=== PATIENT | female | born 1935 | race Caucasian/White ===

== ENCOUNTER 2017-01-28 09:09 | Inpatient (IN) ==
[2017-01-28] MEDS ORDERED: Ondansetron 4 MG/2 ML VIAL IVP ONE ×2 (09:57→10:38)
[2017-01-28] MEDS ORDERED: *HR* Morphine 2 MG/ML SYRINGE IVP ONE (09:57)
[2017-01-28 09:59] LABS: Basophils % 0.4 %; Eosinophils # 0.3 K/mcL (0.0-0.6); Eosinophils % 2.8 %; Hematocrit 35.5 % (35.3-44.9); Hemoglobin 12.1 g/dL (11.5-15.4); Immature Granulocytes % 0.3 % (0-4); Lymphocytes # 1.1 K/mcL (0.6-4.6); Lymphocytes % 11.8 %; Mean Corpuscular HGB Conc 34.1 g/dL (31.6-35.5); Mean Corpuscular Hemoglobin 31.8 pg (28.0-33.3); Mean Corpuscular Volume 93.2 fL (83.0-100.0); Mean Platelet Volume 11.6 fL (9.4-12.4); Monocytes # 0.8 K/mcL (0.0-1.3); Monocytes % 8.5 %; Platelet Count 160 K/mcL (140-400); Red Blood Count 3.81 M/mcL (3.82-4.97); Red Cell Distribution Width 12.2 % (11.5-14.5); Segmented Neutrophils % 76.2 %
[2017-01-28] MEDS: 0.9 % Sodium Chloride 1,000 ML IVC SCH ×2 (09:59→19:10)
--- NOTE | 2017-01-28 10:23 | Emergency Department Note ---
Disposition Clinical Impression: Fracture of hip Qualifiers: Encounter type: initial encounter Fracture type: closed Laterality: right Qualified Code(s): S72.001A - Fracture of unspecified part of neck of right femur, initial encounter for closed fracture Disposition: Admitted As Inpatient Condition: Good Referrals: Rosemary Suarez MD [Primary Care Provider] - Forms: ED Satisfaction Letter Time of Disposition: 10:40 Lower Extremity Injury HPI - General Chief Complaint: ED Extremity Injury, Lower Stated Complaint: HIP FX Time Seen by Provider: 01/28/17 09:12 Source: patient, EMS Mode of arrival: EMS Limitations: no limitations Nursing Notes Reviewed: Yes Vital Signs Reviewed: Yes - History of Present Illness HPI Narrative: Patient presents from outside facility with what is described as a comminuted shortened right femoral neck fracture. Patient fell 3 days ago. Decided to the emergency room today because of pain. Denied any other symptoms or concerns. Only complaint on arrival his pain. Pt Subjective Complaint: hip injury Onset (ago): day(s) (3 days) Mechanism of Injury: fall Context: fall Place: home Pain Severity: moderate Pain Scale: 8 Improves with: rest Worsens with: weight bearing, movement, palpation Associated symptoms: Reports: able to partially bear weight - Related Data Home Medications Medication Instructions Recorded Confirmed Cholecalciferol (D-3) [Vitamin D] 2,000 unit PO DAILY 01/28/17 01/28/17 Imipramine HCl [Tofranil] 50 mg PO BID 01/28/17 01/28/17 Lisinopril/Hydrochlorothiazide 1 tab PO BID 01/28/17 01/28/17 [Zestoretic 20-25 mg Tablet] Metoprolol XL (24 HR) Succ [Toprol 50 mg PO DAILY 01/28/17 01/28/17 XL] Omeprazole [PriLOSEC] 20 mg PO DAILY 01/28/17 01/28/17 OxyCODONE/APAP 5/325 [Percocet 1 - 2 tab PO BID PRN 01/28/17 01/28/17 5/325 MG] Perphenazine [Trilafon] 8 mg PO HS 01/28/17 01/28/17 Phytonadione [Vitamin K] 100 mcg PO DAILY 01/28/17 01/28/17 Allergies Allergy/AdvReac Type Severity Reaction Status Date / Time aspirin AdvReac See Verified 01/28/17 09:56 Comments Penicillins AdvReac See Verified 01/28/17 09:56 Comments All systems ED: reviewed and negative except as stated. Constitutional: Denies: fever, chills Cardiovascular: Denies: chest pain, palpitations, dyspnea on exertion Respiratory: Denies: dyspnea, wheezes Gastrointestinal: Denies: abdominal pain, nausea, vomiting, diarrhea Genitourinary: Denies: dysuria, frequency Musculoskeletal: Denies: back pain, neck pain Neurological: Denies: headache Past Medical History - Past Medical History Attestation: Yes The following information was validated with the patient. Source: patient (Jon Villalta said to Kofi is a) Medical history: Reports: hypertension Psychiatric history: Reports: depression - Social History Smoking Status: Never smoker Smokeless Tobacco Status: No Alcohol use: Reports: none Drug use: Reports: none Physical Exam - General Limitations: no limitations General appearance: alert - Head Head exam: atraumatic, normocephalic, normal inspection - Eye Eye exam: Present: PERRL, EOMI - Chest Chest inspection: Present: normal inspection, symmetric chest wall rise - Respiratory Respiratory exam: Present: normal lung sounds bilaterally - Cardiovascular Cardiovascular exam: Present: regular rate, normal rhythm, normal heart sounds - Extremities Exam Extremities exam: Present: normal inspection, full ROM, tenderness (Right hip pain), normal capillary refill. Absent: calf tenderness - Back Exam Back exam: Present: normal inspection - Neurological Exam Neurological exam: Present: alert, oriented X3, CN II-XII intact - Skin Skin exam: Present: warm, dry, intact, normal color Course Course Narrative: 81-year-old female seen and examined the time of arrival by EMS. See history of present illness. Patient presented from outside facility where she was evaluated for right hip pain status post fall 3 days ago. Patient been a bleeding home with some moderate difficulty secondary to discomfort. Patient was found to have a right femoral neck fracture after the fall. Denied any other symptoms or complaints. Patient has multiple medical issues but all which appear to be in controlled this time. Based on physical exam lungs are clear heart is regular abdomen is soft there is no signs of bruising or trauma to the head pupils are equal round reactive to light. No other acute pathology. Tenderness to the right hip with no significant gross deformity. Mildly shortened and mildly rotated but no other acute pathology pulses in the DP and PT distribution are both normal bilaterally and symmetric. Patient is appropriate sensation in the distal aspect of the bilateral extremities. Patient had basic screening labs done at this time for surgical evaluation including EKG, CBC chemistry type and screen to be added. Imaging of the right hip to be completed because no dizziness at work. Pain medication fluids and nausea medication be given. Disposition will most likely be admission for definitive management. Patient was comfortable with the plan at this time - Reevaluation(s) Reevaluation #1: Imaging reviewed by myself and discussed with the on-call orthopedic physician Dr. Jaeger. Recommended CT imaging of the right hip. No other acute traumatic pathology note this time labs are stable. Token screen at this time for presurgical evaluation. EKG shows left bundle-branch block with no comparison. Patient is stable denying chest pain. No acute signs of ST segment elevation or concern for myocardial infarction. Compatible EKG from 22/02. Patient otherwise is resting comfortably in the bed. Repeat CT scan to be completed while admission and transport is completed Time: 10:39 Reevaluation #2: Patient discussed with the hospitalist Dr. mortensen. We reviewed the presentation symptoms. Happy to admit the patient for postsurgical evaluation treatment. Dr. jaeger is at the bedside and evaluated the patient was taken to surgery today after she was referred directly from the emergency room. No other recommendations intervention needed. Imaging labs and EKG reviewed with the hospitalist without any issue. Patient is stable will continue to monitor her emergency room until admission process is completed Time: 10:59 Vital Signs Temperature 98.1 F 01/28/17 09:10 Pulse Rate 81 01/28/17 09:10 Respiratory Rate 18 01/28/17 09:10 Blood Pressure 133/72 01/28/17 09:10 O2 Sat by Pulse Oximetry 95 01/28/17 09:10 Temperature 98.1 F 01/28/17 09:10 Pulse Rate 77 01/28/17 10:05 Respiratory Rate 18 01/28/17 10:05 Blood Pressure 136/68 01/28/17 10:05 O2 Sat by Pulse Oximetry 93 01/28/17 10:05 Oxygen Delivery Oxygen Delivery Room Air Extremity Injury, Lower - MDM Narrative Medical decision making narrative: Right hip fracture - Medical Records Medical records reviewed: Yes I reviewed the patient's medical records. - Lab Data Lab results reviewed: Yes I reviewed the patient's lab results. Result diagrams: 01/28/17 09:53 Lab Results 01/28/17 01/28/17 Range/Units 09:53 09:53 WBC 9.1 (4.3-11.1) K/mcL RBC 3.81 L (3.82-4.97) M/mcL Hgb 12.1 (11.5-15.4) g/dL Hct 35.5 (35.3-44.9) % MCV 93.2 (83.0-100.0) fL MCH 31.8 (28.0-33.3) pg MCHC 34.1 (31.6-35.5) g/dL RDW 12.2 (11.5-14.5) % Plt Count 160 (140-400) K/mcL MPV 11.6 (9.4-12.4) fL Immature Gran % 0.3 (0-4) % Seg Neutrophils % 76.2 % Lymphocytes % 11.8 % Monocytes % 8.5 % Eosinophils % 2.8 % Basophils % 0.4 % Neutrophils # 7.0 (1.6-8.9) K/mcL Lymphocytes # 1.1 (0.6-4.6) K/mcL Monocytes # 0.8 (0.0-1.3) K/mcL Eosinophils # 0.3 (0.0-0.6) K/mcL Basophils # 0.0 (0.0-0.2) K/mcL Specimen Rejected Hemolyzed - Radiology Data Radiology results reviewed: Yes I reviewed the patient's radiology results. X-ray shows right hip fracture - EKG Data EKG attestation: Yes I reviewed and interpreted this EKG. EKG shows normal: sinus rhythm, axis, intervals, ST-T waves Rhythm: NSR [place]/QRS: LBBB Interpretation: other (EKG is from approximately 10 years ago for comparison no acute pathology at this time)
[2017-01-28 10:28] LABS: INR 1.1; Prothrombin Time 11.9 Seconds (9.4-12.1)
[2017-01-28 10:31] LABS: Activated Partial Thrombo Time 29.2 Seconds (26.0-36.0)
[2017-01-28 10:35] LABS: BUN/Creatinine Ratio 18 (6-26); Blood Urea Nitrogen 14 mg/dL (7-20); Calcium 9.1 mg/dL (8.6-10.8); Carbon Dioxide 31 mEq/L (19-29); Chloride 94 mEq/L (98-109); Glucose 118 mg/dL (70-99); Osmolality,Calculated 276 (280-300); Potassium 3.7 mEq/L (3.5-4.5); Sodium 132 mEq/L (136-145); eGFR For African Americans > 60 (> 60); eGFR For Non-African Americans > 60 (> 60)
[2017-01-28] MEDS ORDERED: *HR* Labetalol 20 MG/4 ML SYRINGE IVP PRN (10:38)
[2017-01-28] MEDS ORDERED: *HR* HYDROmorphone (PF) 1 MG/ML SYRINGE IVP PRN (10:38)
[2017-01-28] MEDS ORDERED: *HR* Promethazine 25 MG/ML VIAL IVP PRN (10:38)
[2017-01-28] MEDS ORDERED: Albuterol 2.5 MG/3 ML NEBULIZER IH ONE (10:38)
--- NOTE | 2017-01-28 10:41 | Anesthesia Evaluation PreOp ---
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) Other Medical History: Denies Any Significant HX Anesthesia History: No Prior Anesthetic Complications : No Alcohol Use: none Drug use: none Medications and Allergies Cholecalciferol (D-3) [Vitamin D] 2,000 unit PO DAILY 01/28/17 [History] Imipramine HCl [Tofranil] 50 mg PO BID 01/28/17 [History] Lisinopril/Hydrochlorothiazide [Zestoretic 20-25 mg Tablet] 1 tab PO BID [History] Metoprolol XL (24 HR) Succ [Toprol XL] 50 mg PO DAILY 01/28/17 [History] Omeprazole [PriLOSEC] 20 mg PO DAILY 01/28/17 [History] OxyCODONE/APAP 5/325 [Percocet 5/325 MG] 1 - 2 tab PO BID PRN 01/28/17 [History] Perphenazine [Trilafon] 8 mg PO HS 01/28/17 [History] Phytonadione [Vitamin K] 100 mcg PO DAILY 01/28/17 [History] Allergies aspirin Adverse Reaction (Verified 01/28/17 09:56) See Comments unknown Penicillins Adverse Reaction (Verified 01/28/17 09:56) See Comments unknown,childhood - Meds/Allergy Pre-op Review Medications Reviewed: Yes Allergies Reviewed: Yes Beta Blockers on Current Med List: Yes If Beta Blockers taken, Date/Time (Last Dose taken): 20:00 01/27/2017 Anesthesia Results - Labs 01/28/17 09:53 01/28/17 10:16 - Imaging EKG: image reviewed (LBBB, cleared by Cardiology ( DR. Wang) - Normal EF - approx 64% on echo 01/28/2017) Anesthesia Exam O2 Sat Height 1.68 m Weight 78.925 kg O2 Sat by Pulse Oximetry 93 O2 Sat by Pulse Oximetry 95 Vital Signs Temp Pulse Resp BP Pulse Ox 98.1 F 81 18 133/72 95 01/28/17 09:10 01/28/17 09:10 01/28/17 09:10 01/28/17 09:10 01/28/17 09:10 Height: 5'6'' Weight: 174# NPO (# of Hours): > 8 hrs Pain Scale: 0 Pain Scale Used: Numeric (1 - 10) - HEENT Pupil (Motor): Pupils equal, EOMI Mallampati: II Teeth: Poor dentition Oral Opening: Greater than 3 - TRANSPORTATION PLANNING ENGINEER LOC: Oriented TRANSPORTATION PLANNING ENGINEER Motor: Normal RUE, Normal LUE, Normal RLE, Normal LLE, Normal Face TRANSPORTATION PLANNING ENGINEER Sensory: Normal: RUE, LUE, RLE, LLE, Face - Cardiac Rhythm: Regular Murmur: None JVD: No Carotid Bruit: No - Pulmonary Breath Sounds: bilateral Clear Respiratory Effort: Symmetrical Anesthesia Assess/Plan ASA Score: 2 Modified Dixie Scale for Level of Consciousness: Cooperative, oriented, and tranquil Anesthetic Plan: General Autologous Blood: Yes Monitoring Plan: Standard Monitors Recovery Plan: PACU
[2017-01-28] MEDS ORDERED: *HR* FentaNYL (PF) 100 MCG/2 ML VIAL ONE (10:51)
[2017-01-28] MEDS ORDERED: *HR* Midazolam HCl 2 MG/2 ML VIAL ONE (10:51)
[2017-01-28] MEDS ORDERED: *HR* Propofol 200 MG/20 ML VIAL IVP ONE (10:51)
[2017-01-28] MEDS ORDERED: *HR* Rocuronium Bromide 50 MG/5 ML VIAL ONE (10:53)
[2017-01-28] MEDS ORDERED: Ondansetron 4 MG/2 ML VIAL ONE (10:53)
[2017-01-28] MEDS ORDERED: *HR* Succinylcholine 200 MG/10 ML VIAL IVP ONE (10:53)
[2017-01-28] MEDS ORDERED: Dexamethasone 4 MG/ML VIAL ONE (10:53)
--- NOTE | 2017-01-28 11:14 | Orthopedic Consult Note ---
Date of Encounter: 01/28/17 Time of Encounter: 11:11 Assessment and Plan (1) Fracture of hip Current Visit: Yes Status: Acute I did discuss the diagnosis in great detail with the patient as well as her son. The patient has a valgus impacted subcapital right femoral neck fracture. Treatment options were discussed and the recommendation was for in situ percutaneous screw fixation of the right hip in order to stabilize the hip to prevent displacement as well as provide pain control and to help facilitate nursing care. The patient is aware of the risk of needing a hemiarthroplasty should there be any significant displacement seen intraoperatively. The risks discussed included but were not limited to stiffness, bleeding, infection, blood clots, damage to neurovascular structures, tendons, ligaments, and bone. Also discussed was the risk of continued symptoms and possible need for further procedures. I did discuss the anesthesia risks including stroke, heart attack, and . Additional risks include the risk of malunion, nonunion, and avascular necrosis. If she does end up requiring a hemiarthroplasty that there will be the added risk of prosthetic infection, dislocation, and the need for revision arthroplasty. I did discuss the reasonable, foreseeable postoperative course with the patient as well as her son. I anticipate the need for rehabilitation upon discharge. I explained this to the patient in simple terms and they wish to proceed and consent was obtained. Qualifiers: Encounter type: initial encounter Fracture type: closed Laterality: right Qualified Code(s): S72.001A - Fracture of unspecified part of neck of right femur, initial encounter for closed fracture History of Present Illness HPI: Ms. Garcia is a 81 year old female who is relatively healthy and is a walker- assisted community ambulator who lives independently. She did have a fall about 3 days ago while using her walker. She denies any loss of consciousness but is not entirely clear how she fell. She did not feel dizzy and thinks it was a mechanical fall. She had gone about her day but due to persistent pain which has become significant, she went to the emergency department for further evaluation at [facility]. She was transferred to our institution after the diagnosis of a subcapital impacted femoral neck fracture was made. The patient complains of isolated pain to the right groin. She denies any other pain. It is described as sharp. She denies any headaches, neck pain, chest pain, or abdominal pain. She denies bilateral upper extremity and left lower extremity pain. No numbness, tingling, or any other associate signs or symptoms. Movement of the right lower extremity does worsen the pain, and there are no other modifying factors. Past Med Surg Social Fam HX - Past Medical History Medical history: hypertension Psychiatric history: depression - Social History Smoking Status: Never smoker Smokeless Tobacco Status: No Alcohol use: none Drug use: none Medications and Allergies Cholecalciferol (D-3) [Vitamin D] 2,000 unit PO DAILY 01/28/17 [History] Imipramine HCl [Tofranil] 50 mg PO BID 01/28/17 [History] Lisinopril/Hydrochlorothiazide [Zestoretic 20-25 mg Tablet] 1 tab PO BID [History] Metoprolol XL (24 HR) Succ [Toprol XL] 50 mg PO DAILY 01/28/17 [History] Omeprazole [PriLOSEC] 20 mg PO DAILY 01/28/17 [History] OxyCODONE/APAP 5/325 [Percocet 5/325 MG] 1 - 2 tab PO BID PRN 01/28/17 [History] Perphenazine [Trilafon] 8 mg PO HS 01/28/17 [History] Phytonadione [Vitamin K] 100 mcg PO DAILY 01/28/17 [History] Allergies aspirin Adverse Reaction (Verified 01/28/17 09:56) See Comments unknown Penicillins Adverse Reaction (Verified 01/28/17 09:56) See Comments unknown,childhood All Systems Reviewed: Constitutional and musculoskeletal systems were reviewed and are negative unless otherwise stated in history of present illness. Physical Exam - Constitutional Vitals: Temp Pulse Resp BP Pulse Ox 98.1 F 77 18 136/68 93 01/28/17 09:10 01/28/17 10:05 01/28/17 10:05 01/28/17 10:05 01/28/17 10:05 Constitutional -Vitals reviewed -The patient is well developed and well nourished. -Mood is pleasant. -The patient is well groomed. Psychiatric -The patient is fully alert and oriented x 3. Respiratory: -Respiratory effort normal Abdomen: -Soft abdomen -Non tender -Non distended: Left upper extremity: -No deformities. The overlying skin is intact. No obvious signs of acute trauma. -No tenderness to palpation throughout. -No significant pain with passive motion of the shoulder, elbow, wrist, and fingers within the limits of the bed. -Able to make an "OK" sign, cross the index and long fingers, and extend the thumb. -Sensation grossly intact to light touch throughout the median, radial, and ulnar distributions. -Radial pulse is present; Fingers have good capillary refill. Right upper extremity: -No deformities. The overlying skin is intact. No obvious signs of acute trauma. -No tenderness to palpation throughout. -No significant pain with passive motion of the shoulder, elbow, wrist, and fingers within the limits of the bed. -Able to make an "OK" sign, cross the index and long fingers, and extend the thumb. -Sensation grossly intact to light touch throughout the median, radial, and ulnar distributions. -Radial pulse is present; Fingers have good capillary refill. Left lower extremity: -No deformities. The overlying skin is intact. No obvious signs of acute trauma. -No tenderness to palpation throughout. -No pain with passive motion of the hip, knee, ankle, and toes within the limits of the bed. -No pain with axial loading of the thigh. -Able to dorsiflex and plantarflex the ankle and toes. -Sensation is grossly intact to light touch throughout the sural, saphenous, superficial peroneal, and deep peroneal distributions. -Toes have good capillary refill. Right lower extremity: -No deformities. The overlying skin is intact. No obvious signs of acute trauma. -Mild tenderness to palpation in the right groin. No other tenderness noted. -Mild pain with logroll of the right hip. -Moderate pain with axial loading of the right groin. -Able to dorsiflex and plantarflex the ankle and toes. -Sensation is grossly intact to light touch throughout the sural, saphenous, superficial peroneal, and deep peroneal distributions. -Toes have good capillary refill. Diagnostic Imaging: I did personally review and interpret x-rays and CT scan of the right hip which demonstrate a subcapital valgus impacted femoral neck fracture. Results - Labs Result Diagrams: 01/28/17 09:53 01/28/17 10:16 Labs: Abnormal lab results RBC 3.81 M/mcL (3.82-4.97) L 01/28/17 09:53 Sodium 132 mEq/L (136-145) L 01/28/17 10:16 Chloride 94 mEq/L (98-109) L 01/28/17 10:16 Carbon Dioxide 31 mEq/L (19-29) H 01/28/17 10:16 Glucose 118 mg/dL (70-99) H 01/28/17 10:16 Calculated Osmolality 276 (280-300) L 01/28/17 10:16 All other labs normal. Consult Discharge Plan - Plan Referrals: Rosemary Suarez MD [Primary Care Provider] -
--- NOTE | 2017-01-28 12:11 | Cardiology Consult Note ---
Date of Encounter: 01/28/17 Time of Encounter: 12:08 Assessment and Plan (1) Preop cardiovascular exam Current Visit: Yes Status: Acute 81 year old with hip fracture scheduled for percutaneous pinning. LBBB noted on preoperative ECG. Prior to fall able to perform ADLs/> 4 METs without chest pain. LVEF normal (TTE reviewed at patient's bedside). Although LBBB can be associated with CAD, no high risk features are noted at this time - denies chest pain, dyspnea, etc. She appears to be an acceptable candidate for this orthopedic procedure. I would recommend aspirin 81 mg daily. Consider outaptient cardiology followup for a possible ischemic evaluation, if she wishes to do that. Thanks, Bishnu Pan DO, FACC (2) Left bundle branch block (LBBB) Current Visit: Yes Status: Acute Discussion w patient/family: The assessment and plan as outlined above was discussed with the patient and/or family members who expressed understanding and agreement. All questions were answered. Thank you for involving us in the care of your patient. Please call with any questions. History of Present Illness Consult date: 01/28/17 Requesting physician: Vasquez Jaeger Consult reason: Preop Chief complaint: Hip fracture History of present illness: Ms. Garcia is a 81 year old female here for fall, hip fracture. Preoperative ECG demonstrated LBBB. Consultation requested. She lives alone at home. Able to perform ADLs without chest pain or discomfort. No unusual dyspnea, orthopnea, or PND reported. No prior history of heart disease. Never required a stress test or LHC. PMH - HTN. Past Med Surg Social Fam HX - Past Medical History Medical history: hypertension Psychiatric history: depression - Social History Smoking Status: Never smoker Smokeless Tobacco Status: No Alcohol use: none Drug use: none Medications and Allergies Cholecalciferol (D-3) [Vitamin D] 2,000 unit PO DAILY 01/28/17 [History] Imipramine HCl [Tofranil] 50 mg PO BID 01/28/17 [History] Lisinopril/Hydrochlorothiazide [Zestoretic 20-25 mg Tablet] 1 tab PO BID [History] Metoprolol XL (24 HR) Succ [Toprol XL] 50 mg PO DAILY 01/28/17 [History] Omeprazole [PriLOSEC] 20 mg PO DAILY 01/28/17 [History] OxyCODONE/APAP 5/325 [Percocet 5/325 MG] 1 - 2 tab PO BID PRN 01/28/17 [History] Perphenazine [Trilafon] 8 mg PO HS 01/28/17 [History] Phytonadione [Vitamin K] 100 mcg PO DAILY 01/28/17 [History] Allergies aspirin Adverse Reaction (Verified 01/28/17 09:56) See Comments unknown Penicillins Adverse Reaction (Verified 01/28/17 09:56) See Comments unknown,childhood All Systems Review: A 10-system review of systems was performed and is negative for pertinent findings except as documented above in the HPI. - Cardiovascular Cardiovascular: as per HPI Physical Examination Vital Signs, Last 4 Hours Resp BP 01/28/17 11:15 18 136/71 General: Conversant, No Apparent Distress HEENT: Atraumatic, Normocephaly, Mucus Membranes Moist Neck: No JVD, Normal carotid pulses Cardiac: Reg Rate and Rhythm, Normal S1 and S2, No Murmur Lungs: Normal Breath Sounds, No Wheeze, Rales, Rhonchi Neuro: Alert and responsive, No focal deficits noted Abdomen: Soft, Non-Tender Skin: No rashes noted on visualized skin Musculoskeletal: No Chest Wall Tenderness Extremities: No Clubbing, No Cyanosis, No Edema Results 01/28/17 09:53 01/28/17 10:16 - Imaging and Cardiology Echo: image reviewed - EKG Interpretation EKG results cardiology: personally reviewed Consult Discharge Plan - Plan Referrals: Rosemary Suarez MD [Primary Care Provider] -
[2017-01-28] MEDS ORDERED: Clindamycin 900 MG/50 ML 900 MG/50 ML IV.SOLN IVPB ONE ×2 (12:12→12:55)
--- NOTE | 2017-01-28 13:54 | Orthopedic Operative Note ---
Date of procedure: 01/28/17 Procedure: OPERATIVE REPORT DATE OF PROCEDURE: 01/28/2017 SURGEON: Vasquez Jaeger MD LANGUAGE ASSISTANT(S): There were no assistants PREOPERATIVE DIAGNOSIS: Right subcapital valgus impacted femoral neck fracture POSTOPERATIVE DIAGNOSIS: Right subcapital valgus impacted femoral neck fracture PROCEDURE: In situ percutaneous screw fixation of the right subcapital valgus impacted femoral neck fracture ANESTHESIA: General anesthesia PREOPERATIVE ANTIBIOTICS: 900 mg of clindamycin ESTIMATED BLOOD LOSS: 50 milliliters URINE OUTPUT: 50 mL FLUID GIVEN: 600 mL IMPLANTS: Synthes 7.3 mm partially threaded cancellus screws: 90 mm, 85 mm, 80 mm PREOPERATIVE NOTE AND INDICATIONS: Palmira is an 81-year-old female with a right subcapital valgus impacted femoral neck fracture. Treatment options were discussed and the recommendation was for the above procedure in order to stabilize the hip to reduce the risk of displacement, improved pain, and help facilitate nursing care. The surgical plan was discussed with the patient. The risks, benefits, alternatives, and potential complications of this procedure were discussed with the patient including injury to veins, arteries, nerves, tendons, ligaments, and bone. Also discussed were the risks of infection, bleeding, pain, blood clots, the possible need for a blood transfusion, the possible need for further procedures, heart attack, stroke, and . Additional risks include the risk of malunion, nonunion, avascular necrosis, and displacement of the fracture. All of this was explained in simple terms, and the patient verbalized understanding and wished to proceed. Consent was given to proceed with surgery. PROCEDURE: The patient was seen in the preoperative holding area where the identify and the consent were confirmed. The right thigh was marked. Final questions were answered. The patient was brought back to the operating room and placed supine on the operating room table. A huddle was performed with the patient and all vital surgical team members confirming patient identity, the correct procedure, and the correct operative site. General anesthesia was administered. The patient was placed on the fracture table and the right foot placed in the foot bhandari without traction. The leg was internally rotated about 45 degrees. The left lower extremity is flexed and abducted out of the way. X-rays confirmed no displacement of the fracture. The right lower extremity was prepped and draped in the usual sterile fashion. A surgical time out was performed immediately preceding the incision with all personnel in the operating room to confirm patient identity, the correct operative site and extremity, correct radiographic studies, availability of appropriate surgical equipment, and agreement on the planned procedure. A 3 cm incision was made through the skin, subcutaneous tissue, and the fascia. The first guidewire was placed in the inferior position and drilled into the femoral head. X-rays confirmed good position. The lateral cortex was drilled after measuring and the definitive screw placed with a moderate amount of purchase. A similar technique was used to place an anterior superior and posterior superior screw. Washers were used for the inferior and anterior superior screws. Due to's space constraints, a third washer was not used. X- rays confirmed good position on live fluoroscopy from AP to lateral. The wound was copiously irrigated and the deep layer closed with 0 Vicryl stitches. The skin was closed with interrupted 3-0 Vicryl stitches and hattie. The patient was taken down off the traction table and placed onto her bed in good condition. The instrument, sponge, and needle counts were correct after wound closure. POST OPERATIVE PLAN: Weight Bearing: Weightbearing as tolerated DVT Prophylaxis: Lovenox 40 mg subcutaneous daily for 4 weeks Activity: Activity as tolerated Wound Care: Daily dressing changes on postoperative day 2. Perioperative antibiotic prophylaxis: 2 doses of clindamycin Social work for discharge planning Follow Up: 2 weeks
--- NOTE | 2017-01-28 14:18 | Anesthesia Evaluation Post Op ---
Date of Encounter: 01/28/17 Time of Encounter: 14:17 - Vital Signs Vital Signs: Vital Signs/O2 Sat, Most Current Temp Pulse Resp BP Pulse Ox 97.9 F 69 20 177/81 97 01/28/17 14:01/28/17 14:01/28/17 14:01/28/17 14:01/28/17 14:07 - Lungs Lungs: Clear Ascult./Percussion - Airway Airway: Non-obstructed - Cardiovascular Regular Rate - Mental Status Mental Status: Alert & Oriented, Answers Appropriately - Pain Pain Scale: 0 Pain Scale used: Numeric (1 - 10) - Nausea Vomiting Nausea Vomiting: Not Present - Hydration Hydration: NPO, Dai catheter - Discharge PostOp Status: Transfer Patient to floor
[2017-01-28] MEDS ORDERED: *HR* Morphine 2 MG/ML SYRINGE IVP PRN (14:49)
--- NOTE | 2017-01-28 14:58 | Internal Med History&Physical ---
<Lena Park - Last Filed: 01/28/17 14:54> Date of Encounter: 01/28/17 Time of Encounter: 14:54 Assessment and Plan (1) Fracture of hip Current visit: Yes Status: Acute With fall 3 days prior to admission, right hip x-ray with acute right femoral neck fracture. S/p internal fixation on 01/28/2017. Details of all unclear, patient denies lightheadedness, dizziness, no loss of consciousness (appears mechanical). Continue IV when necessary morphine for pain management, will likely need SNF placement. Postoperative management including anticoagulation and mobility status per Ortho. PT/OT consulted Qualifiers: Encounter type: initial encounter Fracture type: closed Laterality: right Qualified Code(s): S72.001A - Fracture of unspecified part of neck of right femur, initial encounter for closed fracture (2) Left bundle branch block (LBBB) Current visit: Yes Status: Acute Noted on preop EKG. Evaluated by cardiology prior to surgery. No inpatient workup needed, can follow up with cardiology for ischemic eval at discharge. Cardiology does recommend ASA 81 mg daily, start when okay per Ortho (3) Hypertension Current visit: Yes Status: Acute Per history. BP elevated, likely due to acute pain. Resume home BP medications. Monitor BP and titrate when necessary Qualifiers: Hypertension type: essential hypertension Qualified Code(s): I10 - Essential (primary) hypertension (4) Depression Current visit: Yes Status: Acute Per history. Withdrawn and with flat affect on exam. Continue home medication regimen. Qualifiers: Depression Type: major depressive disorder Qualified Code(s): F32.9 - Major depressive disorder, single episode, unspecified (5) DVT prophylaxis Current visit: Yes Status: Acute Lovenox per Ortho Internal Medicine - H&P: HPI Chief complaint: right hip pain Admitted From: Home History of present illness: Ms. Garcia is a 81 year old female with PMH HTN and depression who presented to [facility] 01/28/2017 with complaints of right hip pain. She was found to have right femoral neck fracture. She was taken to the OR from ED for surgical intervention. Information obtained from chart review and patient report. Patient is drowsy and somewhat withdrawn does not provide many details at all. Per chart review patient fell 3 days ago high her to admission, now with persistent right hip pain. On my exam she says her legs just gave out on her she denies lightheadedness dizziness she is not exactly sure how or why she fell. Denies loss of consciousness. She complains of right hip pain, but she does not rate her get pain characteristics to says it hurts. Denies numbness or tingling to right leg no loss of bowel or bladder incontinence. No chest pain no shortness of breath Past Med Surg Social Fam HX - Past Medical History Medical history: hypertension Psychiatric history: depression - Past Surgical History Surgical History: non-contributory - Social History Smoking Status: Never smoker Smokeless Tobacco Status: No Alcohol use: none Drug use: none - Additional Family History Additional family history: Reviewed and noncontributory Internal Medicine - H&P: Meds Cholecalciferol (D-3) [Vitamin D] 2,000 unit PO DAILY 01/28/17 [History] Imipramine HCl [Tofranil] 50 mg PO BID 01/28/17 [History] Lisinopril/Hydrochlorothiazide [Zestoretic 20-25 mg Tablet] 1 tab PO BID [History] Metoprolol XL (24 HR) Succ [Toprol XL] 50 mg PO DAILY 01/28/17 [History] Omeprazole [PriLOSEC] 20 mg PO DAILY 01/28/17 [History] OxyCODONE/APAP 5/325 [Percocet 5/325 MG] 1 - 2 tab PO BID PRN 01/28/17 [History] Perphenazine [Trilafon] 8 mg PO HS 01/28/17 [History] Phytonadione [Vitamin K] 100 mcg PO DAILY 01/28/17 [History] Allergies aspirin Adverse Reaction (Verified 01/28/17 09:56) See Comments unknown Penicillins Adverse Reaction (Verified 01/28/17 09:56) See Comments unknown,childhood All Systems PM: A 10-system review of systems was performed and is negative for pertinent findings except as documented above in the HPI. - Constitutional Constitutional: no chills, no fever(s), no night sweats - EENT Eyes: no change in vision, no discharge, no pain, no photophobia Ears: no ear discharge, no ear pain, no tinnitus Nose, mouth and throat: no dysphagia, no nasal discharge, no neck pain, no sore throat - Cardiovascular Cardiovascular ROS IM: no chest pain, no diaphoresis, no dyspnea, no lightheadedness, no palpitations, no syncope - Respiratory Respiratory: no cough, no dyspnea, no wheezing, no excessive phlegm production - Gastrointestinal Gastrointestinal: no abdominal pain, no diarrhea, no hematemesis, no hematochezia, no melena, no nausea, no vomiting - Genitourinary Genitourinary: no change in urinary stream, no dysuria, no flank pain, no hematuria - Musculoskeletal Musculoskeletal ROS IM: limited range of motion (Right hip pain), no numbness, no tingling - Integumentary Integumentary IM: no rash, no unusual bruising - Neurological Neurological ROS: no confusion, no convulsions, no focal weakness, no numbness, no tingling, no tremor(s) - Hematologic/Lymphatic Hematologic/Lymphatic: no easy bruising - Constitutional Vitals: Temp Pulse Resp BP Pulse Ox 97.7 F 72 18 152/83 96 01/28/17 14:25 01/28/17 14:25 01/28/17 14:25 01/28/17 14:25 01/28/17 14:25 General appearance: Present: A&O X 3, no acute distress - Head Head exam: Present: atraumatic, normocephalic - Eye Eye exam: Present: PERRL, conjuntiva pink, sclera anicteric Pupils: Present: PERRL - Neck Neck exam general surgery: Present: supple, trachea midline. Absent: lymphadenopathy - Respiratory Respiratory exam: Present: CTAB. Absent: accessory muscle use, rales, rhonchi, wheezes - Cardiovascular Cardiovascular exam: Present: RRR, +S1, +S2. Absent: diastolic murmur, gallop, rubs, systolic murmur - GI/Abdominal GI/Abdominal exam: Present: normal bowel sounds, soft, no peritoneal signs. Absent: distended, tenderness - Extremities Exam Extremities exam: Present: joint swelling, pedal edema (Right hip edema), warm, radial pulses palpable and symetrical. Absent: calf tenderness, cyanotic - Neurological Exam Neurological exam: Present: CN II-XII intact, oriented X3, no focal deficits. Absent: pronater drift, facial droop, speech deficit - Psychiatric Psychiatric exam: Present: flat affect - Skin Skin exam: Present: dry, intact Internal Med - H&P Results - Labs CBC & Chem 7: 01/28/17 09:53 01/28/17 10:16 - Impressions ITS Impressions Fluoroscopy 01/28/17 12:30 IMPRESSION: Intraprocedural fluoroscopic spot images as above. See separate procedure report for more information. D/ / Bishnu Reed MD / Bishnu Reed MD Interpreting Provider: Bishnu Reed MD <Jerry Griggs - Last Filed: 01/28/17 15:25> Date of Encounter: 01/28/17 Internal Medicine - H&P: HPI History of present illness: Ms. Garcia is a 81 year old female Past Med Surg Social Fam HX - Family History Brother Adopted: No Living Status: Father Living Status: Hx Family Cardiac Disorders: Yes Mother Hx Family Endocrine Disorder: Yes (Diabetes) All Systems PM: A 10-system review of systems was performed and is negative for pertinent findings except as documented above in the HPI. - Constitutional Vitals: Temp Pulse Resp BP Pulse Ox 98.0 F 76 16 160/72 97 01/28/17 14:50 01/28/17 14:50 01/28/17 14:50 01/28/17 14:50 01/28/17 14:50 Internal Med - H&P Results - Labs CBC & Chem 7: 01/28/17 09:53 01/28/17 10:16 - Impressions ITS Impressions Fluoroscopy 01/28/17 12:30 IMPRESSION: Intraprocedural fluoroscopic spot images as above. See separate procedure report for more information. D/ / Bishnu Reed MD / Bishnu Reed MD Interpreting Provider: Bishnu Reed MD - Attending Attestation I have seen and examined the patient at around 15:10. I have discussed about the patient with Lena Park NP. I have reviewed the orders and the note. The patient is a 81-year-old female with past history of hypertension, depression and probable schizophrenia. She presented to the ED with right hip pain. Patient states she had a fall about 3 days ago, and has had right hip pain ever since then. Initial evaluation in the ED revealed right femoral neck fracture. Patient was taken to the OR from the ED and had percutaneous screw fixation of the fracture. Patient has tolerated the procedure well. She was examined after the procedure. Cardiology has evaluated the patient prior to surgery in view of LBBB. Cardiac clearance given. We will continue aspirin 81 mg. On examination, patient is drowsy but easily arousable. Not in any distress. Able to verbalize and able to answer questions. She complains of pain at the postop site. Moderate pain. No other complaints. Patient will be on IV morphine for pain control, IV fluids and will be on DVT prophylaxis. We will continue home medications. Patient has been explained about her condition and plan of care. Understood and agreed. No unanswered questions. Will discuss with son. CODE STATUS full code.
[2017-01-28] MEDS: Clindamycin 900 MG/50 ML 900 MG/50 ML IV.SOLN IVPB SCH ×2 (15:24→23:24)
[2017-01-29 07:03] LABS: Hematocrit 29.6 % (35.3-44.9)
[2017-01-29 07:05] LABS: Hemoglobin 9.7 g/dL (11.5-15.4)
[2017-01-29 07:07] LABS: BUN/Creatinine Ratio 21 (6-26); Blood Urea Nitrogen 15 mg/dL (7-20); Calcium 8.3 mg/dL (8.6-10.8); Carbon Dioxide 29 mEq/L (19-29); Chloride 100 mEq/L (98-109); Glucose 121 mg/dL (70-99); Osmolality,Calculated 282 (280-300); Potassium 3.7 mEq/L (3.5-4.5); Sodium 135 mEq/L (136-145); eGFR For African Americans > 60 (> 60); eGFR For Non-African Americans > 60 (> 60)
--- NOTE | 2017-01-29 07:55 | Internal Med Progress Note ---
Date of Encounter: 01/29/17 Time of Encounter: 07:53 - Assessment and plan (1) Fracture of hip Current Visit: Yes Status: Acute Assessment and plan: right hip x-ray with acute right femoral neck fracture. S/p internal fixation on 01/28/2017. Followed by orthopedic surgery Qualifiers: Encounter type: initial encounter Fracture type: closed Laterality: right Qualified Code(s): S72.001A - Fracture of unspecified part of neck of right femur, initial encounter for closed fracture (2) Acute blood loss as cause of postoperative anemia Current Visit: Yes Status: Acute Assessment and plan: Hemoglobin dropped from 12.1 down to 9.7 Vital signs are stable, monitor CBC, may order Hemoccult The patient is on omeprazole Consider transfusion if needed Consider holding Lovenox (3) Left bundle branch block (LBBB) Current Visit: Yes Status: Acute Assessment and plan: Stable, no intervention Was evaluated by cardiology (4) Hypertension Current Visit: Yes Status: Acute Assessment and plan: Stable Continue lisinopril and hydrochlorothiazide Qualifiers: Hypertension type: essential hypertension Qualified Code(s): I10 - Essential (primary) hypertension (5) Depression Current Visit: Yes Status: Acute Assessment and plan: Stable Qualifiers: Depression Type: major depressive disorder Qualified Code(s): F32.9 - Major depressive disorder, single episode, unspecified - Subjective Interval history: Complains of mild pain on the right hip from the surgery. Denies any chest pain , shortness of breath, no fevers or chills, no abdominal pain, no dysuria - Constitutional Vitals: Temp Pulse Resp BP Pulse Ox 98.4 F 79 16 138/67 95 01/29/17 06:34 01/29/17 06:34 01/29/17 06:34 01/29/17 06:34 01/29/17 06:34 General appearance: Present: A&O X 3, no acute distress - Head Head exam: Present: atraumatic, normocephalic - Eye Eye exam: Present: PERRL, conjuntiva pink, sclera anicteric Pupils: Present: PERRL - Neck Neck exam general surgery: Present: supple, trachea midline. Absent: lymphadenopathy - Respiratory Respiratory exam: Present: CTAB. Absent: accessory muscle use, rales, rhonchi, wheezes - Cardiovascular Cardiovascular exam: Present: RRR, +S1, +S2. Absent: diastolic murmur, gallop, rubs, systolic murmur - GI/Abdominal GI/Abdominal exam: Present: normal bowel sounds, soft, no peritoneal signs. Absent: distended, tenderness - Extremities Exam Extremities exam: Present: warm, radial pulses palpable and symetrical. Absent : calf tenderness, cyanotic, pedal edema - Neurological Exam Neurological exam: Present: CN II-XII intact, oriented X3, no focal deficits. Absent: pronater drift, facial droop, speech deficit - Skin Skin exam: Present: dry. Absent: intact (Right hip surgical wound covered by dressing, no signs of infection or hematoma) Internal Medicine: Result - Labs CBC & Chem 7: 01/29/17 05:31 01/29/17 05:31 Labs: Short CBC 01/29/17 Range/Units 05:31 Hgb 9.7 L D (11.5-15.4) g/dL Hct 29.6 L (35.3-44.9) % BMP 01/29/17 05:31 Sodium 135 L Potassium 3.7 Chloride 100 Carbon Dioxide 29 BUN 15 Creatinine 0.72 Glucose 121 H Calcium 8.3 L - ABG Interpretation ABG results: PT/INR, D-dimer PT 11.9 Seconds (9.4-12.1) 01/28/17 10:16 - Impressions Impressions Fluoroscopy 01/28/17 12:30 IMPRESSION: Intraprocedural fluoroscopic spot images as above. See separate procedure report for more information. D/ / Bishnu Reed MD / Bishnu Reed MD Interpreting Provider: Bishnu Reed MD - VTE Documentation of Mechanical Device: Intermittent pneumatic compression device Consult Discharge Plan - Plan Referrals: Rosemary Suarez MD [Primary Care Provider] -
[2017-01-29] MEDS: Metoprolol XL (24 HR) Succ 50 MG TAB.ER.24H PO SCH (09:44)
[2017-01-29] MEDS: *HR* Enoxaparin 40 MG/0.4 ML SYRINGE SQ SCH (09:45)
--- NOTE | 2017-01-29 13:30 | Electrocardiograph Report ---
[place] [id number] Test Date: 2017-01-28 Pat Name: Palmira Garcia Department: 105 Room: [facility] Gender: F [employer] Worker: : 1935 Requested By: Ishan Cooley Order Number: [id number] Reading MD: Artie Lozano MD Measurements Intervals Anna Rate: 77 P: 83 TN: 161 QRS: -29 QRSD: 176 T: 90 QT: 445 QTc: 477 Interpretive Statements SINUS RHYTHM LEFT BUNDLE BRANCH BLOCK Electronically Signed On 01-29-2017 13:28:39 EDT by Artie Lozano MD
[2017-01-29 14:22] LABS: Hematocrit 32.1 % (35.3-44.9); Hemoglobin 10.9 g/dL (11.5-15.4)
[2017-01-29] MEDS: *HR* OxyCODONE/APAP 5/325 TABLET PO PRN ×2 (16:21→22:48)
--- NOTE | 2017-01-29 17:10 | Orthopedics Progress Note ---
Date of Encounter: 01/29/17 Time of Encounter: 17:07 - Assessment and Plan (1) Fracture of hip Current Visit: Yes Status: Acute Qualifiers: Encounter type: initial encounter Fracture type: closed Laterality: right Qualified Code(s): S72.001A - Fracture of unspecified part of neck of right femur, initial encounter for closed fracture Subjective Interval history: S: Sitting up in the chair. Minimal pain to the right groin. No new complaints. Has been able to put weight down on the right lower extremity without significant pain. O: Afebrile, vitals stable. Right thigh dressing is clean, dry, intact. No significant pain with logroll or axial loading of the right thigh. She is able to dorsiflex and plantarflex the right ankle and toes. A: Post internal fixation of the right subcapital femoral neck fracture P: -Dai out today -2 doses of postoperative antibiotics complete -Physical therapy, weightbearing as tolerated on the bilateral lower extremities -Lovenox 40 mg subcutaneous daily for 4 weeks total -Knee-high ALEXIA hose -Vitamin D levels within normal limits -Dressing change tomorrow Objective Vital signs: Vital Signs Temp Pulse Resp BP Pulse Ox 01/29/17 16:19 98.4 F 87 16 151/65 96 01/29/17 10:03 98.7 F 81 16 134/68 94 01/29/17 09:58 92 01/29/17 06:34 98.4 F 79 16 138/67 95 01/29/17 03:59 98.6 F 84 17 135/70 98 01/28/17 23:00 98.6 F 81 15 135/64 97 01/28/17 17:20 97.8 F 83 18 124/62 100 Intake and Output 01/29/17 01/29/17 01/29/17 07:59 15:59 23:59 Output Total 525 / 525 Balance -525 / -525 Output: Catheter 525 / 525 - Labs CBC & BMP: 01/29/17 13:42 01/29/17 05:31 Labs: Abnormal lab results RBC 3.81 M/mcL (3.82-4.97) L 01/28/17 09:53 Hgb 10.9 g/dL (11.5-15.4) L 01/29/17 13:42 Hct 32.1 % (35.3-44.9) L 01/29/17 13:42 Sodium 135 mEq/L (136-145) L 01/29/17 05:31 Glucose 121 mg/dL (70-99) H 01/29/17 05:31 Calcium 8.3 mg/dL (8.6-10.8) L 01/29/17 05:31 - VTE Documentation of Mechanical Device: Intermittent pneumatic compression device Consult Discharge Plan - Plan Referrals: Rosemary Suarez MD [Primary Care Provider] -
[2017-01-30 06:38] LABS: Hematocrit 31.7 % (35.3-44.9); Mean Corpuscular HGB Conc 34.7 g/dL (31.6-35.5); Mean Corpuscular Hemoglobin 32.4 pg (28.0-33.3); Mean Corpuscular Volume 93.2 fL (83.0-100.0); Platelet Count 190 K/mcL (140-400); Red Cell Distribution Width 12.5 % (11.5-14.5)
[2017-01-30 06:52] LABS: BUN/Creatinine Ratio 24 (6-26); Blood Urea Nitrogen 17 mg/dL (7-20); Carbon Dioxide 27 mEq/L (19-29); Chloride 98 mEq/L (98-109); Glucose 95 mg/dL (70-99); Osmolality,Calculated 279 (280-300); Potassium 4.1 mEq/L (3.5-4.5); Sodium 134 mEq/L (136-145); eGFR For African Americans > 60 (> 60); eGFR For Non-African Americans > 60 (> 60)
--- NOTE | 2017-01-30 07:15 | Orthopedics Progress Note ---
Date of Encounter: 01/30/17 Time of Encounter: 07:13 - Assessment and Plan (1) Fracture of hip Current Visit: Yes Status: Acute Qualifiers: Encounter type: initial encounter Fracture type: closed Laterality: right Qualified Code(s): S72.001A - Fracture of unspecified part of neck of right femur, initial encounter for closed fracture Subjective Interval history: S: Pain well controlled. Ambulated with therapy. Minimal right groin pain with weightbearing. O: Afebrile, vitals stable. Right thigh incision is clean, dry, intact. No significant pain with logroll or axial loading of the right thigh. She is able to dorsiflex and plantarflex the right ankle and toes. A: Post internal fixation of the right subcapital femoral neck fracture P: -Physical therapy, weightbearing as tolerated on the bilateral lower extremities -Lovenox 40 mg subcutaneous daily for 4 weeks total -Knee-high ALEXIA hose -Orthopedically stable for discharge to SNF -Follow up with me in the office in 2 weeks from surgery date. Objective Vital signs: Vital Signs Temp Pulse Resp BP Pulse Ox 01/30/17 06:50 98.0 F 83 16 158/82 94 01/30/17 03:48 98.3 F 83 18 156/78 01/30/17 00:09 99.1 F 82 147/78 93 01/29/17 19:59 98.3 F 81 144/70 97 01/29/17 19:40 98.3 F 81 144/70 97 01/29/17 16:19 98.4 F 87 16 151/65 96 01/29/17 10:03 98.7 F 81 16 134/68 94 01/29/17 09:58 92 Intake and Output 01/29/17 01/29/17 01/30/17 15:59 23:59 07:59 Intake Total 350 / 350 Output Total 400 / 400 Balance -50 / -50 Intake: Oral 350 / 350 Output: Urine 400 / 400 Other: Stool Size Small Stool Consistency formed Stool Color Brown # Voids 1 Weight 84.7 kg - Labs CBC & BMP: 01/30/17 05:34 01/30/17 05:34 Labs: Abnormal lab results WBC 11.4 K/mcL (4.3-11.1) H 01/30/17 05:34 RBC 3.40 M/mcL (3.82-4.97) L 01/30/17 05:34 Hgb 11.0 g/dL (11.5-15.4) L 01/30/17 05:34 Hct 31.7 % (35.3-44.9) L 01/30/17 05:34 Sodium 134 mEq/L (136-145) L 01/30/17 05:34 Calculated Osmolality 279 (280-300) L 01/30/17 05:34 - VTE Documentation of Mechanical Device: Intermittent pneumatic compression device Consult Discharge Plan - Plan Additional Instructions: SENIOR CARE DISCHARGE INSTRUCTIONS Dr. Jaeegr PROCEDURE PERFORMED Fixation of the right hip. Incision care -Daily dressing changes to the right hip with dry gauze and either paper tape or medipore tape. -Avoid soaking wound in water (no hot tubs, bathtubs, swimming pools). -May shower after 2 weeks from surgery date. Carefully wash incision with soap and water. Gently pat it dry. Don't rub the incision, or apply creams or lotions. Sit on a shower stool when showering to keep from falling. Weight bearing status -Weightbearing as tolerated to the bilateral lower extremities. Medications -Pain medication per the discharging medical doctor -Lovenox 40 mg subcutaneously per day for 28 days from the date of the surgery. Other -Knee high ALEXIA hose 23 hours per day -Consult physical and occupational therapy for mobilization. -Up to chair with assistance at least twice per day. -Follow up with your primary care physician to discuss testing for bone mineral density. Follow-up with Dr. Jaeger at the office 2 weeks from the surgery date for a post operative evaluation. Call the office at [phone] to schedule appointment. Referrals: Rosemary Suarez MD [Primary Care Provider] -
[2017-01-30] MEDS: *HR* Enoxaparin 40 MG/0.4 ML SYRINGE SQ SCH (08:54)
[2017-01-30] MEDS: Metoprolol XL (24 HR) Succ 50 MG TAB.ER.24H PO SCH (08:54)
--- NOTE | 2017-01-30 13:45 | Discharge Summary ---
Date of Encounter: 01/30/17 Time of Encounter: 13:42 - Discharge Diagnosis (1) Fracture of hip Priority: Primary Status: Acute Comments: right hip x-ray with acute right femoral neck fracture. S/p internal fixation on 01/28/2017. Qualifiers: Encounter type: initial encounter Fracture type: closed Laterality: right Qualified Code(s): S72.001A - Fracture of unspecified part of neck of right femur, initial encounter for closed fracture (2) Acute blood loss as cause of postoperative anemia Priority: Secondary Status: Acute (3) Left bundle branch block (LBBB) Priority: Secondary Status: Acute (4) Hypertension Priority: Secondary Status: Acute Qualifiers: Hypertension type: essential hypertension Qualified Code(s): I10 - Essential (primary) hypertension (5) Depression Priority: Secondary Status: Acute Qualifiers: Depression Type: major depressive disorder Qualified Code(s): F32.9 - Major depressive disorder, single episode, unspecified - Discharge Medications Prescriptions: OxyCODONE/APAP 5/325 [Percocet 5/325 MG] 1 tab PO Q6H PRN #25 tablet PRN Reason: Pain Home Medications: Cholecalciferol (D-3) [Vitamin D] 2,000 unit PO DAILY 01/28/17 [History] Imipramine HCl [Tofranil] 50 mg PO BID 01/28/17 [History] Lisinopril/Hydrochlorothiazide [Zestoretic 20-25 mg Tablet] 1 tab PO BID [History] Metoprolol XL (24 HR) Succ [Toprol Xl] 50 mg PO DAILY 01/28/17 [History] Omeprazole [PriLOSEC] 20 mg PO DAILY 01/28/17 [History] Perphenazine [Trilafon] 8 mg PO HS 01/28/17 [History] Phytonadione [Vitamin K] 100 mcg PO DAILY 01/28/17 [History] Enoxaparin [Lovenox] 40 mg SQ DAILY 26 Days 01/30/17 [Rx] OxyCODONE/APAP 5/325 [Percocet 5/325 MG] 1 tab PO Q6H PRN #25 tablet 01/30/17 [ Rx] Allergies/Adverse Reactions: Allergies aspirin Adverse Reaction (Verified 01/28/17 09:56) See Comments unknown Penicillins Adverse Reaction (Verified 01/28/17 09:56) See Comments unknown,childhood Procedures/tests Complete & Pending: Procedures Performed prior 72 hours Category Date Time Status EV echocardiogram Routine Y 01/28/17 Completed Date of admission: 01/28/17 11:05 Primary care physician: Rosemary Suarez MD Consults: 01/28/17 13:40 Consult to Occupational Therapy [CONS] Routine Comment: Evaluate, develop and implement POC Reason for Consult: post hip surgery Consult to Physical Therapy [CONS] Routine Comment: Evaluate, develop and implement POC Reason for Consult: post hip surgery Consult to Lumber Planer [CONS] Routine Reason for SW Consult: post -op hip fracture - Patient Status Disposition: Transfer Inpatient Rehab Fac Condition: Good Overall status at discharge: patient is progressing back to baseline - Discharge Instructions Follow Up With: Rosemary Suarez MD [Primary Care Provider] - Additional Instructions: HALFWAY DISCHARGE INSTRUCTIONS Instructions per Dr. Jaeger PROCEDURE PERFORMED Fixation of the right hip. Incision care -Daily dressing changes to the right hip with dry gauze and either paper tape or medipore tape. -Avoid soaking wound in water (no hot tubs, bathtubs, swimming pools). -May shower after 2 weeks from surgery date. Carefully wash incision with soap and water. Gently pat it dry. Don't rub the incision, or apply creams or lotions. Sit on a shower stool when showering to keep from falling. Weight bearing status -Weightbearing as tolerated to the bilateral lower extremities. Medications -Pain medication per the discharging medical doctor -Lovenox 40 mg subcutaneously per day for 28 days from the date of the surgery. -Physical therapy, weightbearing as tolerated on the bilateral lower extremities -Orthopedically stable for discharge to SNF -Follow up with Dr Jaeger in the office in 2 weeks from surgery date. Other -Knee high ALEXIA hose 23 hours per day -Consult physical and occupational therapy for mobilization. -Up to chair with assistance at least twice per day. -Follow up with your primary care physician to discuss testing for bone mineral density. Follow-up with Dr. Jaeger at the office 2 weeks from the surgery date for a post operative evaluation. Call the office at [phone] to schedule appointment. - Diet and Activity Activity: increase activity as tolerated Diet: low fat, low cholesterol Hospital course: Ms. Garcia is a 81 year old female with PMH HTN and depression who presented to [facility] 01/28/2017 with complaints of right hip pain. She was found to have right femoral neck fracture. She was taken to the OR from ED for surgical intervention. The patient fell 3 days ago prior to her to admission, now with persistent right hip pain. She denied lightheadedness dizziness she was not exactly sure how or why she fell. Denied loss of consciousness. She complained of right hip pain. CT scan of the hip showed an acute subcapital right femoral neck fracture underwent internal fixation on 01/28/2017. After surgery her hemoglobin dropped from 12.1 down to 9.7 which was probably a lab error as the next value was 10.9 and today her hemoglobin is 11. Hemoccult was negative and there is no evidence of bleeding. Patient is stable to be discharged to a rehabilitation facility. Hyponatremia of 132 has improved to 134. - Time Spent with Patient Total time spent providing and/or coordinating discharge services: Greater than 30 minutes (40 min) - Constitutional Vitals: Temp Pulse Resp BP Pulse Ox 98.7 F 80 18 168/72 98 01/30/17 11:30 01/30/17 11:30 01/30/17 11:30 01/30/17 11:30 01/30/17 11:30 General appearance: Present: A&O X 3, no acute distress - Head Head exam: Present: atraumatic, normocephalic - Eye Eye exam: Present: PERRL, conjuntiva pink, sclera anicteric Pupils: Present: PERRL - Neck Neck exam general surgery: Present: supple, trachea midline. Absent: lymphadenopathy - Respiratory Respiratory exam: Present: CTAB. Absent: accessory muscle use, rales, rhonchi, wheezes - Cardiovascular Cardiovascular exam: Present: RRR, +S1, +S2. Absent: diastolic murmur, gallop, rubs, systolic murmur - GI/Abdominal GI/Abdominal exam: Present: normal bowel sounds, soft, no peritoneal signs. Absent: distended, tenderness - Extremities Exam Extremities exam: Present: warm, radial pulses palpable and symetrical. Absent : calf tenderness, cyanotic, pedal edema - Neurological Exam Neurological exam: Present: CN II-XII intact, oriented X3, no focal deficits. Absent: pronater drift, facial droop, speech deficit - Skin Skin exam: Present: dry. Absent: intact (Right hip surgical wound without signs of infection or hematoma) - VTE Documentation of Mechanical Device: Intermittent pneumatic compression device
--- NOTE | 2017-01-30 14:00 | Physician Discharge Referral ---
ExtendedCare Referral Info Provider in Charge after Transfer: PCP Institutional Level of Care: Skilled - Diagnosis (1) Fracture of hip Status: Acute (2) Acute blood loss as cause of postoperative anemia Status: Acute (3) Left bundle branch block (LBBB) Status: Acute (4) Hypertension Status: Acute (5) Depression Status: Acute - Transfer Medications Prescriptions: OxyCODONE/APAP 5/325 [Percocet 5/325 MG] 1 tab PO Q6H PRN #25 tablet PRN Reason: Pain Home Medications: Cholecalciferol (D-3) [Vitamin D] 2,000 unit PO DAILY 01/28/17 [History] Imipramine HCl [Tofranil] 50 mg PO BID 01/28/17 [History] Lisinopril/Hydrochlorothiazide [Zestoretic 20-25 mg Tablet] 1 tab PO BID [History] Metoprolol XL (24 HR) Succ [Toprol Xl] 50 mg PO DAILY 01/28/17 [History] Omeprazole [PriLOSEC] 20 mg PO DAILY 01/28/17 [History] Perphenazine [Trilafon] 8 mg PO HS 01/28/17 [History] Phytonadione [Vitamin K] 100 mcg PO DAILY 01/28/17 [History] Enoxaparin [Lovenox] 40 mg SQ DAILY 26 Days 01/30/17 [Rx] OxyCODONE/APAP 5/325 [Percocet 5/325 MG] 1 tab PO Q6H PRN #25 tablet 01/30/17 [ Rx] Allergies/Adverse Reactions: Allergies aspirin Adverse Reaction (Verified 01/28/17 09:56) See Comments unknown Penicillins Adverse Reaction (Verified 01/28/17 09:56) See Comments unknown,childhood - Respiratory Orders Smoking Cessation: Smoking cessation has been advised. For more information, call the [place] Tobacco Quit Line at 9-552-XLEP-NOW. - Advance Directives Code Status: Full Code - Rehabiliation Orders Rehab Orders: Evaluation for Physical Therapy Other: PRISON DISCHARGE INSTRUCTIONS Instructions per Dr. Jaeger PROCEDURE PERFORMED Fixation of the right hip. Incision care -Daily dressing changes to the right hip with dry gauze and either paper tape or medipore tape. -Avoid soaking wound in water (no hot tubs, bathtubs, swimming pools). -May shower after 2 weeks from surgery date. Carefully wash incision with soap and water. Gently pat it dry. Don't rub the incision, or apply creams or lotions. Sit on a shower stool when showering to keep from falling. Weight bearing status -Weightbearing as tolerated to the bilateral lower extremities. Medications -Pain medication per the discharging medical doctor -Lovenox 40 mg subcutaneously per day for 28 days from the date of the surgery. -Physical therapy, weightbearing as tolerated on the bilateral lower extremities -Orthopedically stable for discharge to SNF -Follow up with Dr Jaeger in the office in 2 weeks from surgery date. Other -Knee high ALEXIA hose 23 hours per day -Consult physical and occupational therapy for mobilization. -Up to chair with assistance at least twice per day. -Follow up with your primary care physician to discuss testing for bone mineral density. Follow-up with Dr. Jaeger at the office 2 weeks from the surgery date for a post operative evaluation. Call the office at [phone] to schedule appointment. - Diet Orders Regular CERTIFICATION: I certify that the transfer of the above named patient to an Extended Care Facility is necessary for the continuing treatment of the diagnosis listed. The above information is true and accurate reflection of patient's current condition. Confidential - Redisclosure prohibited without a patient's written consent.
[2017-01-30] MEDS: *HR* OxyCODONE/APAP 5/325 TABLET PO PRN (14:26)
[2017-01-30 15:24] VITALS: BP 163/75
== END 2017-01-30 15:28 | DRG 481 ==
LOC: EMEROO 09:09 → 3NENU 11:05
PROVIDERS: ADMIT Orthopaedic Surgery Hand Surgery; ATTEND Orthopaedic Surgery Hand Surgery

== ENCOUNTER 2017-10-10 11:53 | Observation (INO) ==
[2017-10-10] MEDS ORDERED: Clindamycin 900 MG/50 ML 900 MG/50 ML IV.SOLN IVPB ONE (12:11)
[2017-10-10] MEDS ORDERED: Ringers Solution, Lactated 1,000 ML IVC SCH ×2 (12:15→16:30)
--- NOTE | 2017-10-10 13:01 | Anesthesia Evaluation PreOp ---
Date of Encounter: 10/10/17 Time of Encounter: 12:58 - Past History Planned Operation: Hardware Removal Right Hip Cardiac History: HTN Pulmonary History: Other (Deep breaths due to his of posterior rib fractures) MEDIA ANALYTICS MANAGER History: Other (Depression) Anesthesia History: No Prior Anesthetic Complications, Past Anesthesia (ORIF R. Hip 10/29/16) : No Alcohol Use: none Drug use: none Medications and Allergies Cholecalciferol (D-3) [Vitamin D] 2,000 unit PO DAILY 01/28/17 [History] Imipramine HCl [Tofranil] 50 mg PO BID 01/28/17 [History] Lisinopril/Hydrochlorothiazide [Zestoretic 20-25 mg Tablet] 1 tab PO BID [History] Metoprolol XL (24 HR) Succ [Toprol Xl] 50 mg PO DAILY 01/28/17 [History] Omeprazole [PriLOSEC] 20 mg PO DAILY 01/28/17 [History] Perphenazine [Trilafon] 8 mg PO HS 01/28/17 [History] Phytonadione [Vitamin K] 100 mcg PO DAILY 01/28/17 [History] OxyCODONE/APAP 5/325 [Percocet 5/325 MG] 1 tab PO Q6H PRN #25 tablet 01/30/17 [ Rx] 3 Allergy/AdvReac Type Severity Reaction Status Date / Time aspirin AdvReac See Verified 01/28/17 09:56 Comments Penicillins AdvReac See Verified 01/28/17 09:56 Comments - Meds/Allergy Pre-op Review Medications Reviewed: Yes Allergies Reviewed: Yes Beta Blockers on Current Med List: Yes If Beta Blockers taken, Date/Time (Last Dose taken): 17:00 10/09/2017 Anesthesia Results - Labs wbc-9.0 Hg 13.7 Plt-249 Na 137 K 4.0 Cl 97 CO2 31 - Imaging EKG: report reviewed (NSR, poss old Inf. and Ant. PA) Anesthesia Exam O2 Sat Height 1.68 m Height 1.68 m Height 1.68 m Weight 75.296 kg Weight 75.296 kg Weight 75.296 kg O2 Sat by Pulse Oximetry 94 Vital Signs Temp Pulse Resp BP Pulse Ox 97.7 F 82 18 155/77 94 10/10/17 12:26 10/10/17 12:26 10/10/17 12:26 10/10/17 12:26 10/10/17 12:26 - HEENT Pupil (Motor): Pupils equal, EOMI Mallampati: II Teeth: Poor dentition Oral Opening: Greater than 3 - MEDIA ANALYTICS MANAGER LOC: Oriented MEDIA ANALYTICS MANAGER Motor: Normal RUE, Normal LUE, Normal RLE, Normal LLE, Normal Face MEDIA ANALYTICS MANAGER Sensory: Normal: RUE, LUE, RLE, LLE, Face - Cardiac Rhythm: Regular Murmur: None JVD: No Carotid Bruit: No - Pulmonary Breath Sounds: bilateral Clear Respiratory Effort: Symmetrical Anesthesia Assess/Plan ASA Score: 2 Modified Dixie Scale for Level of Consciousness: Cooperative, oriented, and tranquil Anesthetic Plan: General Monitoring Plan: Standard Monitors Recovery Plan: PACU
[2017-10-10] MEDS ORDERED: *HR* FentaNYL (PF) 100 MCG/2 ML VIAL ONE (13:38)
[2017-10-10] MEDS ORDERED: *HR* Succinylcholine 200 MG/10 ML VIAL IVP ONE (13:39)
[2017-10-10] MEDS ORDERED: Lidocaine -MPF 2% 2 ML VIAL ONE (13:39)
[2017-10-10] MEDS ORDERED: *HR* Propofol 200 MG/20 ML VIAL IVP ONE (13:40)
[2017-10-10] MEDS ORDERED: Acetaminophen IV 1,000 MG/100 ML INFUS..BTL ONE (13:45)
--- NOTE | 2017-10-10 13:48 | History & Physical Report ---
Date of Encounter: 10/10/17 Time of Encounter: 13:48 24 Hour HP Update - Instructions Instructions: If the History and Physical is less than 30 days old and was completed prior to A.M. admission and or procedure and has NOT been updated on calendar day of procedure please complete this update prior to performing procedure. - Update Patient reports changes in Medical Condition: No Changes in examination, assessment, or condition: No Changes in Medication: No Preop tests/diagnostics Reviewed: Yes Surgery Remains Indicated: Yes Consent for Planned Operative Procedure(s) Verified: Yes
[2017-10-10] MEDS ORDERED: Ondansetron 4 MG/2 ML VIAL ONE (14:05)
[2017-10-10] MEDS ORDERED: Ondansetron 4 MG/2 ML VIAL IVP PRN (14:28)
[2017-10-10] MEDS ORDERED: *HR* Morphine 2 MG/ML SYRINGE IVP PRN (14:28)
[2017-10-10] MEDS ORDERED: *HR* Morphine 10 MG/ML VIAL ONE (14:34)
[2017-10-10] MEDS ORDERED: Acetaminophen 325 MG TABLET PO PRN (15:10)
[2017-10-10] MEDS ORDERED: Naloxone 0.4 MG/ML INJ IVP PRN (15:10)
--- NOTE | 2017-10-10 15:43 | Orthopedic Operative Note ---
Date of procedure: 10/10/17 Procedure: OPERATIVE REPORT DATE OF PROCEDURE: 10/10/2017 SURGEON: Vasquze Jaeger MD BRUSHING MACHINE OPERATOR(S): There were no assistants PREOPERATIVE DIAGNOSIS: Painful hardware to the right hip POSTOPERATIVE DIAGNOSIS: Painful hardware to the right hip PROCEDURE: Hardware removal from the right hip ANESTHESIA: Gen. anesthesia PREOPERATIVE ANTIBIOTICS: 900 mg of clindamycin ESTIMATED BLOOD LOSS: 20 milliliters PREOPERATIVE NOTE AND INDICATIONS: This patient is an 82-year-old female who had a percutaneous pinning of the right hip over 8 months ago. She had initially been doing well however she began to develop hip pain which was mechanical. She is able to ambulate but had pain with each step. We did discuss treatment options after an x-ray and CT scan did show what appeared to be a healed fracture however collapse and early changes of AVN. We did discuss hardware removal which would be the simpler operation versus hip replacement. She wished to attempt arm were removal in hopes of achieving pain relief. The surgical plan was discussed with the patient. The risks, benefits, alternatives, and potential complications of this procedure were discussed with the patient including injury to veins, arteries, nerves, tendons, ligaments, and bone. Also discussed were the risks of infection, bleeding, pain, blood clots, the possible need for a blood transfusion, the possible need for further procedures, heart attack, stroke, and . I did discuss the risks of continued pain from avascular necrosis or refracture requiring prosthetic replacement. All of this was explained in simple terms, and the patient verbalized understanding and wished to proceed. Consent was given to proceed with surgery. PROCEDURE: The patient was seen in the preoperative holding area where the identify and the consent were confirmed. The right hip was marked. Final questions were answered. The patient was brought back to the operating room and placed supine on the operating room table. A huddle was performed with the patient and all vital surgical team members confirming patient identity, the correct procedure, and the correct operative site. Gen. anesthesia was administered. The right lower extremity was placed in the traction boot but without traction. The left lower extremity was flexed and abducted out of the way. X-rays confirm the ability to obtain good images. The right lower extremity was prepped and draped in the usual sterile fashion. A surgical time out was performed immediately preceding the incision with all personnel in the operating room to confirm patient identity, the correct operative site and extremity, correct radiographic studies, availability of appropriate surgical equipment, and agreement on the planned procedure. A small longitudinal incision was made over the old scar. Dissection proceeded through the subcutaneous tissue and the fascia was opened. The vastus lateralis was identified and opened and the guidewire was placed in the inferior screw. The screw was backed out easily. A similar procedure was performed on the other 2 screws. Once the hardware was removed I did internally and externally rotate the hip and the fracture appeared to be healed. The wound was copiously irrigated and the fascia was closed with 0 Vicryl stitches. The skin was closed with 3-0 Vicryl and the zip tie dressing. The instrument, sponge, and needle counts were correct after wound closure. POST OPERATIVE PLAN: Weight Bearing: Touchdown weightbearing to the right lower extremity. DVT Prophylaxis: Lovenox while in house Activity: Activities as tolerated with the assistance of therapy while in house Wound Care: Keep the dressing clean, dry, and intact. Pain Control: Gentle oral narcotic analgesia Follow Up: 2 weeks Other: Admit to work on TDWB to the R lower extremity with therapy and to assess the need for home versus ECF. Was there an nurses assistant present: No Estimated blood loss (cc): 1
[2017-10-10] MEDS ORDERED: Racepinephrine Neb 0.5 ML VIAL IH ONE (16:45)
[2017-10-10] MEDS ORDERED: Dexamethasone 10 MG/ML VIAL IVP ONE (16:45)
--- NOTE | 2017-10-10 17:06 | Anesthesia Progress Note ---
Date of Encounter: 10/10/17 Time of Encounter: 16:55 Anesthesia Note - Note Note: 10/10/17 17:03 Asked to see pt on the floor. Subjective: c/o "scratchy throat, altered voice". RN is also concerned about possible stridor, and labored breathing with accessory muscle use. She is post removal of non-infected painful hardware from the right hip, under GA with ETT. Per report, the patient has had a trauma, with some fractured ribs in the recent past. The patient's breathing is at baseline per the patient and her spuse. Objective: The patient is lying flat on bed, her resp effort seems to be slightly labored. No stridor. The patient is trying to keep clearing her throat. VS are stable. SpO2 is 100% on 2 LNC. The pharynx, is hyperemic, with a white exudate on the post pharyngeal wall. Assessement: Pharyngitis, secondary to intubation, likely exacerbating by a preexisting congestion and post nasal drip. Labored breathing secondary to preexisting rib fractures. Plan: 1- The patient was sat upright to reduce diaphragmatic splinting. 2- One time dose of racemic epi neb, and a single dose of dexamethasone. 3- Cepacol and ice chips. 4- Discussed with the patient, and reassured of likely spon. resolution. 5- Discussed with Dr. Jaeger, who is OK with consulting the hospital service if needed. 6- Will follow. 10/10/17 21:00 Pt see again this evening. No c/o- "throat much better". No need for further follow-up at this time.
[2017-10-10] MEDS: *HR* Enoxaparin 30 MG/0.3 ML SYRINGE SQ SCH (17:19)
[2017-10-10] MEDS: *HR* OxyCODONE Immed Rel 5 MG TABLET PO PRN (17:21)
--- NOTE | 2017-10-10 17:41 | Physician Discharge Referral ---
Home Health/Hosp Referral Info Transfer to: Home Health - Diagnosis (1) Fracture of hip Status: Acute - Respiratory Orders Smoking Cessation: Smoking cessation has been advised. For more information, call the [place] Tobacco Quit Line at 5-578-BJES-NOW. - Dressing/Wound Care Type of Dressing/Treatments w/Frequency: Keep the dressing clean, dry, and intact. - Diet/Nutrition Diet/Nutrition Orders: Regular - Activity Activity Orders: Ambulate, Walker Activity: List: Touchdown weightbearing to the right lower extremity. He sure walker for ambulation. Follow the directions of the therapist. - Services Needed Following services are medically necessary services: Physical Therapy, Occupational Therapy Home Care Orders: Touchdown weightbearing to the right lower extremity Walker for ambulation Other Treatments: DETENTION DISCHARGE INSTRUCTIONS Dr. Jaeger PROCEDURE PERFORMED Hardware removal of the right hip Incision care -Keep the dressing clean, dry, and intact Weight bearing status -Touchdown weightbearing to the right lower extremity Medications -Pain medication per the discharging medical doctor -Enteric coated aspirin 325 mg by mouth twice per day for 28 days from the date of the surgery. Other -Consult physical and occupational therapy for mobilization. -Up to chair with assistance at least twice per day. Follow-up with Dr. Jaeger at the office 2 weeks from the surgery date for a post operative evaluation. Call the office at [phone] to schedule appointment. - Transfer Medications Prescriptions: OxyCODONE/APAP 5/325 [Percocet 5/325 MG] 1 tab PO Q6H PRN 7 Days #28 tablet PRN Reason: Pain Home Medications: Cholecalciferol (D-3) [Vitamin D] 2,000 unit PO DAILY 01/28/17 [History] Imipramine HCl [Tofranil] 50 mg PO BID 01/28/17 [History] Lisinopril/Hydrochlorothiazide [Zestoretic 20-25 mg Tablet] 1 tab PO BID [History] Metoprolol XL (24 HR) Succ [Toprol Xl] 50 mg PO DAILY 01/28/17 [History] Omeprazole [PriLOSEC] 20 mg PO DAILY 01/28/17 [History] Perphenazine [Trilafon] 8 mg PO HS 01/28/17 [History] Phytonadione [Vitamin K] 100 mcg PO DAILY 01/28/17 [History] OxyCODONE/APAP 5/325 [Percocet 5/325 MG] 1 tab PO Q6H PRN 7 Days #28 tablet [Rx] Allergies/Adverse Reactions: 3 Allergy/AdvReac Type Severity Reaction Status Date / Time aspirin AdvReac See Verified 01/28/17 09:56 Comments Penicillins AdvReac See Verified 01/28/17 09:56 Comments Certification: Further, I certify that my clinical findings support that this patient is homebound (i.e. absences from home require considerable and taxing effort and are for medical reasons or anglican services or infrequently or short duration when for other reasons) because: Homebound Reason: Patient requires assistance of a person or device to safely leave home Attestation: My signature below is to certify that this patient is under my care and that I, or nurse practitioner, or a physician's certified nursing assistant working with me, has a face-to -face encounter with this patient.
--- NOTE | 2017-10-10 17:49 | Orthopedics Progress Note ---
Date of Encounter: 10/10/17 Time of Encounter: 17:46 - Assessment and Plan (1) Fracture of hip Current Visit: No Status: Acute Qualifiers: Encounter type: initial encounter Fracture type: closed Laterality: right Qualified Code(s): S72.001A - Fracture of unspecified part of neck of right femur, initial encounter for closed fracture Subjective Interval history: S: Resting in bed comfortably No significant pain to the right groin. Expected mild proximal lateral thigh pain Mild throat pain post op being observed by anesthesia O: Afebrile on the vital signs are stable Right hip dressing is clean, dry, and intact I can gently passively range the right hip and axial load the right hip without significant pain She can flex and plantar flex her ankle and toes The foot is sensate and well-perfused X-rays of the right hip show that the hardware has been removed without any changes to the proximal femur. Deformity consistent with her prior films A: Post hardware removal to the right hip P: At this point we will have therapy work with the patient tomorrow Touchdown weightbearing to the right lower extremity Anticipate home with home health care and home PT/OT Objective Vital signs: Vital Signs Temp Pulse Resp BP Pulse Ox 10/10/17 17:23 16 100 10/10/17 17:13 97.6 F 87 20 153/74 100 10/10/17 16:17 98.0 F 82 18 134/73 100 10/10/17 16:00 97.6 F 82 18 114/64 100 10/10/17 15:42 97.9 F 82 16 122/52 16 10/10/17 15:32 83 16 118/52 16 10/10/17 15:22 82 16 111/52 16 10/10/17 15:12 97.8 F 78 14 145/56 14 10/10/17 12:26 97.7 F 82 18 155/77 94 Intake and Output 10/10/17 10/10/17 10/10/17 07:59 15:59 23:59 Intake Total 50 / 50 Output Total 5 / 5 Balance 45 / 45 Intake: IV Fluids 50 / 50 Cleocin Premix 900 MG/50 ML 900 50 / 50 mg In 50 ml @ 100 mls/hr IVPB PREOP ONE Rx#:[id number] Output: Estimated Blood Loss 5 / 5 Other: Weight 75.296 kg Patient Weight 10/10/17 23:59 Weight 75.296 kg - VTE Documentation of Mechanical Device: Venous foot pump, device Consult Discharge Plan - Plan Referrals: Rosemary Suarez MD [Primary Care Provider] - Prescriptions: OxyCODONE/APAP 5/325 [Percocet 5/325 MG] 1 tab PO Q6H PRN 7 Days #28 tablet PRN Reason: Pain
--- NOTE | 2017-10-10 20:25 | Anesthesia Evaluation Post Op ---
Date of Encounter: 10/10/17 Time of Encounter: 15:45 - Discharge PostOp Status: Transfer Patient to floor (Patient's vital signs have been reviewed. Patient is stable postoperatively and has adequately recovered from anesthesia, unless otherwise noted. Patient is determined to have stable airway patency and respiratory function including respiratory rate and oxygen saturation. Patient has a stable heart rate, blood pressure and adequate hydration. Patients mental status is acceptable. Patients temperature is appropriate. Pain and nausea are adequately controlled.)
[2017-10-11] MEDS: Clindamycin 900 MG/50 ML 900 MG/50 ML IV.SOLN IVPB SCH ×2 (00:07→09:12)
[2017-10-11] MEDS: Perphenazine 8 MG TABLET PO SCH ×2 (00:07→20:34)
[2017-10-11] MEDS: *HR* Enoxaparin 30 MG/0.3 ML SYRINGE SQ SCH ×2 (05:53→17:47)
[2017-10-11 06:22] LABS: Hematocrit 33.5 % (35.3-44.9); Hemoglobin 11.1 g/dL (11.5-15.4); Mean Corpuscular HGB Conc 33.1 g/dL (31.6-35.5); Mean Corpuscular Hemoglobin 31.6 pg (28.0-33.3); Mean Corpuscular Volume 95.4 fL (83.0-100.0); Mean Platelet Volume 11.3 fL (9.4-12.4); Platelet Count 213 K/mcL (140-400); Red Blood Count 3.51 M/mcL (3.82-4.97); Red Cell Distribution Width 12.3 % (11.5-14.5)
[2017-10-11 06:36] LABS: BUN/Creatinine Ratio 21 (6-26); Blood Urea Nitrogen 14 mg/dL (8-23); Calcium 8.9 mg/dL (8.6-10.3); Carbon Dioxide 28 mEq/L (23-29); Chloride 100 mEq/L (98-107); Glucose 140 mg/dL (70-105); Osmolality,Calculated 281 (280-300); Potassium 3.6 mEq/L (3.5-5.1); Sodium 134 mEq/L (136-145); eGFR For African Americans > 60 (> 60); eGFR For Non-African Americans > 60 (> 60)
[2017-10-11] MEDS: (Phytonadione [Vitamin K] 100 MCG) PO SCH (09:08)
[2017-10-11] MEDS: Cholecalciferol (D-3) 1,000 UNIT TABLET PO SCH (09:12)
[2017-10-11] MEDS: *HR* OxyCODONE Immed Rel 5 MG TABLET PO PRN ×2 (09:12→16:06)
[2017-10-11] MEDS: Metoprolol XL (24 HR) Succ 50 MG TAB.ER.24H PO SCH (09:12)
[2017-10-11] MEDS: *HR* HYDROcodone/Acet 5/325 mg TABLET PO PRN ×2 (12:26→20:35)
--- NOTE | 2017-10-11 16:17 | Orthopedics Progress Note ---
Date of Encounter: 10/11/17 Time of Encounter: 16:14 Subjective Principal diagnosis: Right hip hardware removal Interval history: Patient is comfortable, without complaints Right hip dressing is clean dry intact, bilateral calves are soft and nontender , neurovascularly intact distally Postoperative day #1 status post removal of right hip screws Continue OT/PT Discharge planning with home health care Objective Vital signs: Vital Signs Temp Pulse Resp BP Pulse Ox 10/11/17 13:06 98.3 F 57 16 128/54 94 10/11/17 07:39 97.8 F 88 12 165/75 100 10/11/17 04:03 97.4 F L 85 14 138/72 98 10/11/17 00:38 98.1 F 90 16 136/73 98 10/10/17 18:56 98.2 F 87 14 99 10/10/17 18:30 98.5 F 94 14 138/74 91 10/10/17 17:23 16 100 10/10/17 17:13 97.6 F 87 20 153/74 100 10/10/17 16:17 98.0 F 82 18 134/73 100 Intake and Output 10/11/17 10/11/17 10/11/17 07:59 15:59 23:59 Intake Total 250 / 250 480 / 480 Balance 250 / 250 480 / 480 Intake: IV Fluids 50 / 50 Cleocin Premix 900 MG/50 ML 900 50 / 50 mg In 50 ml @ 50 mls/hr IVPB Q8HR [facility] Rx#:[id number] Oral 200 / 200 480 / 480 Other: Meal Lunch Percent of Meal Consumed 80% Weight 75.295 kg Patient Weight 10/11/17 23:59 Weight 75.295 kg - Labs CBC & BMP: 10/11/17 05:53 10/11/17 05:53 Labs: Abnormal lab results RBC 3.51 M/mcL (3.82-4.97) L 10/11/17 05:53 Hgb 11.1 g/dL (11.5-15.4) L 10/11/17 05:53 Hct 33.5 % (35.3-44.9) L 10/11/17 05:53 Sodium 134 mEq/L (136-145) L 10/11/17 05:53 Glucose 140 mg/dL (70-105) H 10/11/17 05:53 - VTE Documentation of Mechanical Device: Venous foot pump, device Consult Discharge Plan - Plan Referrals: Rosemary Suarez MD [Primary Care Provider] - Prescriptions: OxyCODONE/APAP 5/325 [Percocet 5/325 MG] 1 tab PO Q6H PRN 7 Days #28 tablet PRN Reason: Pain
[2017-10-12] MEDS: *HR* Enoxaparin 30 MG/0.3 ML SYRINGE SQ SCH ×2 (06:05→16:45)
[2017-10-12] MEDS: (Phytonadione [Vitamin K] 100 MCG) PO SCH (08:35)
[2017-10-12] MEDS: Metoprolol XL (24 HR) Succ 50 MG TAB.ER.24H PO SCH (08:36)
[2017-10-12] MEDS: Cholecalciferol (D-3) 1,000 UNIT TABLET PO SCH (08:36)
--- NOTE | 2017-10-12 13:03 | Orthopedics Progress Note ---
Date of Encounter: 10/12/17 Time of Encounter: 13:02 Subjective Principal diagnosis: Right hip hardware removal Interval history: Patient is comfortable, without complaints Right hip dressing is clean dry intact, bilateral calves are soft and nontender , neurovascularly intact distally Postoperative day #2 status post removal of right hip screws Continue OT/PT Discharge planning with home health care Objective Vital signs: Vital Signs Temp Pulse Resp BP Pulse Ox 10/12/17 10:49 97.7 F 72 16 145/67 96 10/12/17 07:32 97.9 F 76 18 159/70 94 10/11/17 23:07 98.1 F 75 16 125/66 92 10/11/17 19:17 98.7 F 70 16 112/66 99 10/11/17 16:14 97.7 F 73 14 105/60 99 10/11/17 13:06 98.3 F 57 16 128/54 94 Intake and Output 10/11/17 10/12/17 10/12/17 23:59 07:59 15:59 Intake Total 320 / 320 Balance 320 / 320 Intake: Oral 320 / 320 Other: Meal Dinner Breakfast Percent of Meal Consumed 50% 95% Weight 94.4 kg Patient Weight 10/12/17 23:59 Weight 94.4 kg - Labs CBC & BMP: 10/11/17 05:53 10/11/17 05:53 Labs: Abnormal lab results RBC 3.51 M/mcL (3.82-4.97) L 10/11/17 05:53 Hgb 11.1 g/dL (11.5-15.4) L 10/11/17 05:53 Hct 33.5 % (35.3-44.9) L 10/11/17 05:53 Sodium 134 mEq/L (136-145) L 10/11/17 05:53 Glucose 140 mg/dL (70-105) H 10/11/17 05:53 - VTE Documentation of Mechanical Device: Venous foot pump, device Consult Discharge Plan - Plan Referrals: Rosemary Suarez MD [Primary Care Provider] - Prescriptions: OxyCODONE/APAP 5/325 [Percocet 5/325 MG] 1 tab PO Q6H PRN 7 Days #28 tablet PRN Reason: Pain
[2017-10-12] MEDS: *HR* HYDROcodone/Acet 5/325 mg TABLET PO PRN ×2 (14:47→20:59)
[2017-10-12] MEDS: Perphenazine 8 MG TABLET PO SCH (20:59)
[2017-10-13] MEDS: *HR* Enoxaparin 30 MG/0.3 ML SYRINGE SQ SCH ×2 (05:56→18:18)
--- NOTE | 2017-10-13 07:44 | Orthopedics Progress Note ---
Date of Encounter: 10/13/17 Time of Encounter: 07:42 - Assessment and Plan (1) Fracture of hip Current Visit: No Status: Acute Qualifiers: Encounter type: initial encounter Fracture type: closed Laterality: right Qualified Code(s): S72.001A - Fracture of unspecified part of neck of right femur, initial encounter for closed fracture Subjective Principal diagnosis: Right hip hardware removal Interval history: S: Resting in bed comfortably Postoperative pain is mild She has been ambulating and compliant with touchdown weightbearing and has minimal pain when ambulating She feels that the mechanical pain has resolved since the screws are removed O: Afebrile on the vital signs are stable Right hip dressing is clean, dry, and intact I can gently passively range the right hip and axial load the right hip without significant pain She can flex and plantar flex her ankle and toes The foot is sensate and well-perfused A: Post hardware removal to the right hip P: Touchdown weightbearing to the right lower extremity Therapist recommending inpatient rehabilitation post discharge We will discharge one set up from a social work standpoint Objective Vital signs: Vital Signs Temp Pulse Resp BP Pulse Ox 10/13/17 06:30 97.8 F 73 16 154/73 95 10/12/17 23:25 97.7 F 68 14 150/71 97 10/12/17 20:11 98.0 F 69 12 116/54 97 10/12/17 16:21 98.2 F 76 16 130/57 98 10/12/17 10:49 97.7 F 72 16 145/67 96 Intake and Output 10/12/17 10/12/17 10/13/17 15:59 23:59 07:59 Intake Total 320 / 320 540 / 540 Output Total 250 / 250 400 / 400 500 / 500 Balance 70 / 70 140 / 140 -500 / -500 Intake: Oral 320 / 320 540 / 540 Output: Urine 250 / 250 400 / 400 500 / 500 Other: Meal Breakfast Dinner Percent of Meal Consumed 95% 100% # Voids 1 # Urine Diapers 1 - Labs CBC & BMP: 10/11/17 05:53 10/11/17 05:53 Labs: Abnormal lab results RBC 3.51 M/mcL (3.82-4.97) L 10/11/17 05:53 Hgb 11.1 g/dL (11.5-15.4) L 10/11/17 05:53 Hct 33.5 % (35.3-44.9) L 10/11/17 05:53 Sodium 134 mEq/L (136-145) L 10/11/17 05:53 Glucose 140 mg/dL (70-105) H 10/11/17 05:53 - VTE Documentation of Mechanical Device: Venous foot pump, device Consult Discharge Plan - Plan Referrals: Rosemary Suarez MD [Primary Care Provider] - Prescriptions: OxyCODONE/APAP 5/325 [Percocet 5/325 MG] 1 tab PO Q6H PRN 7 Days #28 tablet PRN Reason: Pain
[2017-10-13] MEDS: Cholecalciferol (D-3) 1,000 UNIT TABLET PO SCH (08:12)
[2017-10-13] MEDS: Metoprolol XL (24 HR) Succ 50 MG TAB.ER.24H PO SCH (08:12)
[2017-10-13] MEDS: (Phytonadione [Vitamin K] 100 MCG) PO SCH (08:13)
[2017-10-13] MEDS: *HR* HYDROcodone/Acet 5/325 mg TABLET PO PRN ×2 (11:24→20:43)
[2017-10-13] MEDS: Perphenazine 8 MG TABLET PO SCH (21:39)
[2017-10-14] MEDS: *HR* HYDROcodone/Acet 5/325 mg TABLET PO PRN (03:38)
[2017-10-14] MEDS: *HR* Enoxaparin 30 MG/0.3 ML SYRINGE SQ SCH ×2 (05:59→18:11)
--- NOTE | 2017-10-14 08:33 | Orthopedics Progress Note ---
Date of Encounter: 10/14/17 Time of Encounter: 08:31 - Assessment and Plan (1) Fracture of hip Status: Acute Qualifiers: Encounter type: initial encounter Fracture type: closed Laterality: right Qualified Code(s): S72.001A - Fracture of unspecified part of neck of right femur, initial encounter for closed fracture Subjective Principal diagnosis: Right hip hardware removal Interval history: S: Resting in bed comfortably Expected postoperative pain controlled Ambulating TDWB with therapy; walked 30 feet yesterday Awaiting placement O: Afebrile on the vital signs are stable Right hip dressing is clean, dry, and intact I can gently passively range the right hip and axial load the right hip without significant pain She can flex and plantar flex her ankle and toes The foot is sensate and well-perfused A: Post hardware removal to the right hip P: Touchdown weightbearing to the right lower extremity Physical therapy / occupational therapy Awaiting placement Objective Vital signs: Vital Signs Temp Pulse Resp BP Pulse Ox 10/14/17 07:27 98.0 F 82 16 171/77 97 10/14/17 04:18 98.2 F 75 15 172/75 95 10/13/17 19:17 98.0 F 76 15 176/72 98 10/13/17 14:19 99.1 F 77 16 137/71 95 10/13/17 10:52 97.7 F 68 18 145/78 100 Intake and Output 10/13/17 10/14/17 10/14/17 23:59 07:59 15:59 Intake Total 100 / 100 300 / 300 Output Total 0 / 0 600 / 600 Balance 100 / 100 -300 / -300 Intake: Oral 100 / 100 300 / 300 Output: Urine 0 / 0 600 / 600 Other: # Voids 1 1 # Bowel Movements 0 Weight 94.4 kg Patient Weight 10/14/17 23:59 Weight 94.4 kg - Labs CBC & BMP: 10/11/17 05:53 10/11/17 05:53 Labs: Abnormal lab results RBC 3.51 M/mcL (3.82-4.97) L 10/11/17 05:53 Hgb 11.1 g/dL (11.5-15.4) L 10/11/17 05:53 Hct 33.5 % (35.3-44.9) L 03/17/18 05:53 Sodium 134 mEq/L (136-145) L 10/11/17 05:53 Glucose 140 mg/dL (70-105) H 10/11/17 05:53 - VTE Documentation of Mechanical Device: Venous foot pump, device Consult Discharge Plan - Plan Referrals: Rosemary Suarez MD [Primary Care Provider] - Prescriptions: OxyCODONE/APAP 5/325 [Percocet 5/325 MG] 1 tab PO Q6H PRN 7 Days #28 tablet PRN Reason: Pain
[2017-10-14] MEDS: Metoprolol XL (24 HR) Succ 50 MG TAB.ER.24H PO SCH (09:51)
[2017-10-14] MEDS: (Phytonadione [Vitamin K] 100 MCG) PO SCH (09:51)
[2017-10-14] MEDS: Cholecalciferol (D-3) 1,000 UNIT TABLET PO SCH (09:51)
[2017-10-14] MEDS: *HR* OxyCODONE Immed Rel 5 MG TABLET PO PRN ×2 (11:45→20:07)
[2017-10-14] MEDS: Perphenazine 8 MG TABLET PO SCH (20:08)
[2017-10-15] MEDS: *HR* Enoxaparin 30 MG/0.3 ML SYRINGE SQ SCH ×2 (05:34→17:44)
--- NOTE | 2017-10-15 07:39 | Orthopedics Progress Note ---
Date of Encounter: 10/15/17 Time of Encounter: 07:38 - Assessment and Plan (1) Fracture of hip Current Visit: No Status: Acute Qualifiers: Encounter type: initial encounter Fracture type: closed Laterality: right Qualified Code(s): S72.001A - Fracture of unspecified part of neck of right femur, initial encounter for closed fracture Subjective Principal diagnosis: Right hip hardware removal Interval history: S: Resting in bed comfortably Pain well controlled to right hip Ambulating, says pain is much better since screw removal. O: Afebrile on the vital signs are stable Right hip dressing is clean, dry, and intact I can gently passively range the right hip and axial load the right hip without significant pain She can flex and plantar flex her ankle and toes The foot is sensate and well-perfused A: Post hardware removal to the right hip P: Touchdown weightbearing to the right lower extremity Physical therapy / occupational therapy Anticipate D/C today to rehab Follow up with me 2 weeks from surgery date Objective Vital signs: Vital Signs Temp Pulse Resp BP Pulse Ox 10/15/17 03:25 97.9 F 79 15 159/82 97 10/14/17 19:00 98.0 F 70 15 158/73 98 10/14/17 15:07 97.4 F L 72 15 135/59 98 10/14/17 11:51 98.2 F 75 16 149/79 97 Intake and Output 10/14/17 10/14/17 10/15/17 15:59 23:59 07:59 Intake Total 480 / 480 440 / 440 200 / 200 Output Total 0 / 0 800 / 800 0 / 0 Balance 480 / 480 -360 / -360 200 / 200 Intake: Oral 480 / 480 440 / 440 200 / 200 Output: Urine 0 / 0 800 / 800 0 / 0 Other: Meal Lunch Dinner Percent of Meal Consumed 100% 100% Stool Size Large Stool Consistency soft formed Stool Color Brown # Voids 1 # Bowel Movements 1 # Bowel Movement Diapers 0 Weight 94.4 kg Patient Weight 10/15/17 23:59 Weight 94.4 kg - Labs CBC & BMP: 10/11/17 05:53 10/11/17 05:53 Labs: Abnormal lab results RBC 3.51 M/mcL (3.82-4.97) L 10/11/17 05:53 Hgb 11.1 g/dL (11.5-15.4) L 10/11/17 05:53 Hct 33.5 % (35.3-44.9) L 10/11/17 05:53 Sodium 134 mEq/L (136-145) L 10/11/17 05:53 Glucose 140 mg/dL (70-105) H 10/11/17 05:53 - VTE Documentation of Mechanical Device: Venous foot pump, device Consult Discharge Plan - Plan Referrals: Rosemary Suarez MD [Primary Care Provider] -
[2017-10-15] MEDS: Cholecalciferol (D-3) 1,000 UNIT TABLET PO SCH (08:17)
[2017-10-15] MEDS: Metoprolol XL (24 HR) Succ 50 MG TAB.ER.24H PO SCH (08:17)
[2017-10-15] MEDS: *HR* HYDROcodone/Acet 5/325 mg TABLET PO PRN (10:42)
[2017-10-15] MEDS: (Phytonadione [Vitamin K] 100 MCG) PO SCH (11:01)
[2017-10-15 12:31] VITALS: BP 112/72
--- NOTE | 2017-10-15 16:36 | Physician Discharge Referral ---
ExtendedCare Referral Info Transfer To: Rehab - Diagnosis (1) Fracture of hip Priority: Primary Status: Acute Prognosis: Good - Transfer Medications Home Medications: Cholecalciferol (D-3) [Vitamin D] 2,000 unit PO DAILY 01/28/17 [History] Imipramine HCl [Tofranil] 50 mg PO BID 01/28/17 [History] Lisinopril/Hydrochlorothiazide [Zestoretic 20-25 mg Tablet] 1 tab PO BID [History] Metoprolol XL (24 HR) Succ [Toprol Xl] 50 mg PO DAILY 01/28/17 [History] Omeprazole [PriLOSEC] 20 mg PO DAILY 01/28/17 [History] Perphenazine [Trilafon] 8 mg PO HS 01/28/17 [History] Phytonadione [Vitamin K] 100 mcg PO DAILY 01/28/17 [History] OxyCODONE/APAP 5/325 [Percocet 5/325 MG] 1 tab PO Q6H PRN 7 Days #28 tablet [Rx] Allergies/Adverse Reactions: 3 Allergy/AdvReac Type Severity Reaction Status Date / Time aspirin AdvReac See Verified 01/28/17 09:56 Comments Penicillins AdvReac See Verified 01/28/17 09:56 Comments - Respiratory Orders Smoking Cessation: Smoking cessation has been advised. For more information, call the [place] Tobacco Quit Line at 8-765-IZQL-NOW. - Mobility Orders Ambulate - Rehabiliation Orders Rehab Potential: Good Rehab Orders: Evaluation for Physical Therapy, Evaluation for Occupational Therapy - Treatments List/Other: HALF-WAY DISCHARGE INSTRUCTIONS Dr. Jaeger PROCEDURE PERFORMED -Hardware removal from the right hip Incision care -Keep the dressing clean, dry, and intact Weight bearing status -Weightbearing as tolerated to the bilateral lower extremities. Medications -Pain medication per the discharging medical doctor Other -Knee high ALEXIA hose 23 hours per day -Consult physical and occupational therapy for mobilization. -Up to chair with assistance at least twice per day. Follow-up with Dr. Jaeger at the office 2 weeks from the surgery date for a post operative evaluation. Call the office at [phone] to schedule appointment. - Diet Orders Regular CERTIFICATION: I certify that the transfer of the above named patient to an Extended Care Facility is necessary for the continuing treatment of the diagnosis listed. The above information is true and accurate reflection of patient's current condition. Confidential - Redisclosure prohibited without a patient's written consent.
--- NOTE | 2017-10-15 16:40 | Discharge Summary ---
Orders not resulted at time of discharge: Pending orders 10/10/17 XR hip complete RT [XR] Routine Date of Encounter: 10/15/17 Time of Encounter: 16:38 - Discharge Diagnosis (1) Fracture of hip Priority: Primary Status: Acute Qualifiers: Encounter type: initial encounter Fracture type: closed Laterality: right Qualified Code(s): S72.001A - Fracture of unspecified part of neck of right femur, initial encounter for closed fracture - Hospital Course Hospital course: Ms. Garcia is a 82 year old female who perviously had internal fixation of the right hip with percutaneous screws. Due to femeral head collapse and protrusion of the screws, she was admitted for screw removal. She did well postoperatively and ambulated with therapy. She is currently touchdown weightbearing to the right lower extremity. She did not require any blood transfusions in the hospital. On 10/15/2017 she received placement for discharge. - Time Spent with Patient Total time spent providing and/or coordinating discharge services: - Discharge Medications Home Medications: Cholecalciferol (D-3) [Vitamin D] 2,000 unit PO DAILY 01/28/17 [History] Imipramine HCl [Tofranil] 50 mg PO BID 01/28/17 [History] Lisinopril/Hydrochlorothiazide [Zestoretic 20-25 mg Tablet] 1 tab PO BID [History] Metoprolol XL (24 HR) Succ [Toprol Xl] 50 mg PO DAILY 01/28/17 [History] Omeprazole [PriLOSEC] 20 mg PO DAILY 01/28/17 [History] Perphenazine [Trilafon] 8 mg PO HS 01/28/17 [History] Phytonadione [Vitamin K] 100 mcg PO DAILY 01/28/17 [History] OxyCODONE/APAP 5/325 [Percocet 5/325 MG] 1 tab PO Q6H PRN 7 Days #28 tablet [Rx] Allergies/Adverse Reactions: 3 Allergy/AdvReac Type Severity Reaction Status Date / Time aspirin AdvReac See Verified 01/28/17 09:56 Comments Penicillins AdvReac See Verified 01/28/17 09:56 Comments Date of admission: 10/14/17 12:26 Primary care physician: Rosemary Suarez MD Consults: 10/10/17 15:12 Consult to Occupational Therapy [CONS] Routine Comment: Evaluate, develop and implement POC Reason for Consult: Hardware removal from the right hip Does patient have active BEDREST order?: No Is patient medically & hemodynamically stable?: Yes Consult to Physical Therapy [CONS] Routine Comment: Evaluate, develop and implement POC Reason for Consult: Post hardware removal from right hip. Does patient have active BEDREST order?: No Is patient medically & hemodynamically stable?: Yes Consult to Yard Switcher [CONS] Routine Reason for SW Consult: Placement - VTE Documentation of Mechanical Device: Venous foot pump, device - Impressions ITS Impressions Fluoroscopy 10/10/17 00:00 IMPRESSION: Intraprocedural fluoroscopic spot images as above. See separate procedure report for more information. D/ / Emery Ellis / Emery Ellis Interpreting Provider: Emery Ellis Hip X-Ray 10/10/17 15:17 IMPRESSION: Baseline postop removal of hardware right hip. No evident complication. Mild deformity and foreshortening of the right femoral neck and head felt to be related to previous trauma. D/ / Spencer Lewis MD / Spencer Lewis MD Interpreting Provider: Spencer Lewis MD - Patient Status Disposition: Transfer SNF - Discharge Instructions Follow Up With: Vasquez Jaeger MD [Partnered Physician] - 10/23/17 9:40 am
--- NOTE | 2017-10-15 16:43 | Physician Discharge Referral ---
- Diagnosis (1) Fracture of hip Status: Acute - Transfer Medications Home Medications: Cholecalciferol (D-3) [Vitamin D] 2,000 unit PO DAILY 01/28/17 [History] Imipramine HCl [Tofranil] 50 mg PO BID 01/28/17 [History] Lisinopril/Hydrochlorothiazide [Zestoretic 20-25 mg Tablet] 1 tab PO BID [History] Metoprolol XL (24 HR) Succ [Toprol Xl] 50 mg PO DAILY 01/28/17 [History] Omeprazole [PriLOSEC] 20 mg PO DAILY 01/28/17 [History] Perphenazine [Trilafon] 8 mg PO HS 01/28/17 [History] Phytonadione [Vitamin K] 100 mcg PO DAILY 01/28/17 [History] OxyCODONE/APAP 5/325 [Percocet 5/325 MG] 1 tab PO Q6H PRN 7 Days #28 tablet [Rx] Allergies/Adverse Reactions: 3 Allergy/AdvReac Type Severity Reaction Status Date / Time aspirin AdvReac See Verified 01/28/17 09:56 Comments Penicillins AdvReac See Verified 01/28/17 09:56 Comments - Respiratory Orders Smoking Cessation: Smoking cessation has been advised. For more information, call the [place] Tobacco Quit Line at 1-416-UKOTNOW. - Advance Directives Code Status: Full Code - Mobility Orders Ambulate - Rehabiliation Orders Rehab Potential: Good Rehab Orders: Evaluation for Physical Therapy, Evaluation for Occupational Therapy - Treatments List/Other: RETIREMENT DISCHARGE INSTRUCTIONS Dr. Jaeger PROCEDURE PERFORMED -Hardware removal from the right hip Incision care -Keep the dressing clean, dry, and intact Weight bearing status -Touch down weight bearing on the right lower extremity. Medications -Pain medication per the discharging medical doctor Other -Knee high ALEXIA hose 23 hours per day -Consult physical and occupational therapy for mobilization. -Up to chair with assistance at least twice per day. Follow-up with Dr. Jaeger at the office 2 weeks from the surgery date for a post operative evaluation. Call the office at [phone] to schedule appointment. - Diet Orders Regular CERTIFICATION: I certify that the transfer of the above named patient to an Extended Care Facility is necessary for the continuing treatment of the diagnosis listed. The above information is true and accurate reflection of patient's current condition. Confidential - Redisclosure prohibited without a patient's written consent.
== END 2017-10-15 17:59 ==
LOC: 3ANU 11:53 → SAMDAY 11:53 → 3NENU 15:45 → 3ANU 10-13 18:03
PROVIDERS: ADMIT Orthopaedic Surgery Hand Surgery; ATTEND Orthopaedic Surgery Hand Surgery

== ENCOUNTER 2017-11-08 02:22 | Inpatient (IN) ==
[2017-11-08] MEDS ORDERED: Acetaminophen 325 MG TABLET PO PRN (05:35)
[2017-11-08] MEDS ORDERED: Naloxone 0.4 MG/ML INJ IVP PRN (05:35)
[2017-11-08] MEDS ORDERED: OXYCODONE Oral CONC 10 MG/0.5 ML ORAL.SYG SL PRN (05:35)
--- NOTE | 2017-11-08 05:48 | Internal Med History&Physical ---
Date of Encounter: 11/08/17 Time of Encounter: 05:00 Internal Medicine - H&P: HPI Chief complaint: Right hip pain Admitted From: Intrahospital Transfer Plans for Post Hospital Care: Transfer Inp Rehab Fac History of present illness: Ms. Garcia is a 82 year old female transferred from [facility] for right hip pain. Past medical history is significant for hypertension. Patient had right hip fracture and had pins fixation in last January. Patient was placed on rehabilitation center. Patient started to have right hip pain since one week ago. Pain is sharp, radiated down to right leg, 10 out of 10. At the beginning, patient just thought it is due to exercise. However, the pain is getting worse and worse. Patient was sent to [facility] ER, x-ray shows right hip fracture. Patient denies fever, nausea, chest pain, or shortness of breath. Patient was transferred to our hospital for further management by our orthopedic team. Orthopedic surgeon Dr. Carlos was informed. Past Med Surg Social Fam HX - Past Medical History Medical history: hypertension Psychiatric history: depression - Past Surgical History Surgical History: non-contributory - Social History Smoking Status: Never smoker Smokeless Tobacco Status: No Alcohol use: none Drug use: none - Family History Brother Adopted: No Living Status: Hx Family Cancer: Yes Father Living Status: Hx Family Cardiac Disorders: Yes ([place]) Mother Name: Erika Age: 75 Family Member Ethnicity: Non- Living Status: Age at : 75 Cause of : DM complications Hx Family Cardiac Disorders: No Hx Family Respiratory Disorders: No Hx Family Cancer: No Hx Family GI Disorders: No Hx Family Genitourinary Disorders: No Hx Family Endocrine Disorder: Yes Hx Family Musculoskeletal Disorders: No Hx Family Neuromuscular Disorders: No Hx Family Neurologic Disorders: No Hx Family HEENT Disorders: No Hx Family Autoimmune Disorders: No Hx Family Reproductive Disorders: No Hx Family Psychosocial Disorders: No Hx Family Medical Disorders: No Internal Medicine - H&P: Meds Cholecalciferol (D-3) [Vitamin D] 2,000 unit PO DAILY 01/28/17 [History] Imipramine HCl [Tofranil] 50 mg PO BID 01/28/17 [History] Lisinopril/Hydrochlorothiazide [Zestoretic 20-25 mg Tablet] 1 tab PO BID [History] Metoprolol XL (24 HR) Succ [Toprol Xl] 50 mg PO DAILY 01/28/17 [History] Omeprazole [PriLOSEC] 20 mg PO DAILY 01/28/17 [History] Perphenazine [Trilafon] 8 mg PO HS 01/28/17 [History] Phytonadione [Vitamin K] 100 mcg PO DAILY 01/28/17 [History] OxyCODONE/APAP 5/325 [Percocet 5/325 MG] 1 tab PO Q6H PRN 7 Days #28 tablet [Rx] 3 Allergy/AdvReac Type Severity Reaction Status Date / Time aspirin AdvReac See Verified 01/28/17 09:56 Comments Penicillins AdvReac See Verified 01/28/17 09:56 Comments All Systems PM: A 10-system review of systems was performed and is negative for pertinent findings except as documented above in the HPI. - Constitutional Vitals: Temp Pulse Resp BP Pulse Ox 98.6 F 77 15 182/74 98 11/08/17 04:44 11/08/17 04:44 11/08/17 04:44 11/08/17 04:44 11/08/17 04:44 General appearance: Present: mild distress, A&O X 3, answers questions appropriately - Head Head exam: Present: atraumatic, normocephalic - Eye Eye exam: Present: PERRL, conjuntiva pink, sclera anicteric Pupils: Present: PERRL - Neck Neck exam general surgery: Present: supple, trachea midline. Absent: lymphadenopathy - Respiratory Respiratory exam: Present: CTAB. Absent: accessory muscle use, rales, rhonchi, wheezes - Cardiovascular Cardiovascular exam: Present: RRR, +S1, +S2. Absent: diastolic murmur, gallop, rubs, systolic murmur - GI/Abdominal GI/Abdominal exam: Present: normal bowel sounds, soft, no peritoneal signs. Absent: distended, tenderness - Extremities Exam Extremities exam: Present: warm, radial pulses palpable and symmetrical. Absent : calf tenderness, cyanotic, pedal edema Additional comments: Right leg movement is limited due to pain - Neurological Exam Neurological exam: Present: CN II-XII intact, oriented X3, no focal deficits. Absent: pronater drift, facial droop, speech deficit - Skin Skin exam: Present: dry, intact - Assessment and plan (1) DVT prophylaxis Current Visit: No Status: Acute Assessment and plan: EPCD, may start anticoagulation after surgery (2) Fracture of hip Current Visit: No Status: Acute Assessment and plan: Patient has new right hip fracture. - Place patient on nothing by mouth, IV fluid for possible surgery - Pain management. - Orthopedic consult Qualifiers: Encounter type: initial encounter Fracture type: closed Laterality: right Qualified Code(s): S72.001A - Fracture of unspecified part of neck of right femur, initial encounter for closed fracture (3) Hypertension Current Visit: No Status: Acute Assessment and plan: Continue home medications. Hydralazine IV when necessary. Pain control for pain, which will help with control for hypertension. Qualifiers: Hypertension type: essential hypertension Qualified Code(s): I10 - Essential (primary) hypertension - Time Spent With Patient Total time spent is greater than 50% in coordination of care (as documented) at patient's floor/unit and/or counseling patient: 40 minutes Greater than 35 minutes
--- NOTE | 2017-11-08 06:21 | Orthopedic Consult Note ---
Date of Encounter: 11/08/17 Time of Encounter: 06:19 History of Present Illness HPI: Ms. Garcia is a 82 year old female With a long history of right hip issues. Patient status post right hip pinning followed by removal of hardware. Reviewing old CAT scan patient most likely had a nonunion. Patient complains of increased pain overnight was seen in another emergency room and transferred for treatment. 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 Patient recommended for right hip hemiarthroplasty secondary to increased pain and inability template. We reviewed the risks and benefits as well as recovery. All questions were answered. The patient agreed to this treatment plan and appeared to understand the plan is reviewed. Surgery will be tomorrow morning. Past Med Surg Social Fam HX - Past Medical History Medical history: hypertension Psychiatric history: depression - Past Surgical History Surgical History: non-contributory - Social History Smoking Status: Never smoker Smokeless Tobacco Status: No Alcohol use: none Drug use: none - Family History Brother Adopted: No Living Status: Hx Family Cancer: Yes Father Living Status: Hx Family Cardiac Disorders: Yes ([place]) Mother Name: Erika Age: 75 Family Member Ethnicity: Non- Living Status: Age at : 75 Cause of : DM complications Hx Family Cardiac Disorders: No Hx Family Respiratory Disorders: No Hx Family Cancer: No Hx Family GI Disorders: No Hx Family Genitourinary Disorders: No Hx Family Endocrine Disorder: Yes Hx Family Musculoskeletal Disorders: No Hx Family Neuromuscular Disorders: No Hx Family Neurologic Disorders: No Hx Family HEENT Disorders: No Hx Family Autoimmune Disorders: No Hx Family Reproductive Disorders: No Hx Family Psychosocial Disorders: No Hx Family Medical Disorders: No Medications and Allergies Cholecalciferol (D-3) [Vitamin D] 2,000 unit PO DAILY 01/28/17 [History] Imipramine HCl [Tofranil] 50 mg PO BID 01/28/17 [History] Lisinopril/Hydrochlorothiazide [Zestoretic 20-25 mg Tablet] 1 tab PO BID [History] Metoprolol XL (24 HR) Succ [Toprol Xl] 50 mg PO DAILY 01/28/17 [History] Omeprazole [PriLOSEC] 20 mg PO DAILY 01/28/17 [History] Perphenazine [Trilafon] 8 mg PO HS 01/28/17 [History] Phytonadione [Vitamin K] 100 mcg PO DAILY 01/28/17 [History] OxyCODONE/APAP 5/325 [Percocet 5/325 MG] 1 tab PO Q6H PRN 7 Days #28 tablet [Rx] 3 Allergy/AdvReac Type Severity Reaction Status Date / Time aspirin AdvReac See Verified 01/28/17 09:56 Comments Penicillins AdvReac See Verified 01/28/17 09:56 Comments All Systems Reviewed: The remainder of the systems were reviewed and are negative Physical Exam - Constitutional Vitals: Temp Pulse Resp BP Pulse Ox 98.6 F 77 15 182/74 98 11/08/17 04:44 11/08/17 04:44 11/08/17 04:44 11/08/17 04:44 11/08/17 04:44 Results - Labs Labs: All other labs normal. Consult Discharge Plan - Plan Referrals: Rosemary Suarez MD [Primary Care Provider] -
[2017-11-08] MEDS: OXYCODONE Oral CONC 10 MG/0.5 ML ORAL.SYG SL PRN ×2 (06:48→13:41)
[2017-11-08] MEDS: 0.9 % Sodium Chloride 1,000 ML IVC SCH ×2 (06:48→17:07)
[2017-11-08 07:57] LABS: INR 1.1; Prothrombin Time 11.5 Seconds (9.4-12.1)
[2017-11-08 08:00] LABS: Activated Partial Thrombo Time 29.7 Seconds (26.0-36.0)
[2017-11-08] MEDS ORDERED: Metoprolol XL (24 HR) Succ 50 MG TAB.ER.24H PO SCH (09:00)
[2017-11-09 05:06] LABS: Basophils # 0.1 K/mcL (0.0-0.2); Basophils % 0.6 %; Eosinophils # 0.3 K/mcL (0.0-0.6); Hematocrit 39.9 % (35.3-44.9); Hemoglobin 13.7 g/dL (11.5-15.4); Immature Granulocytes % 0.1 % (0-4); Lymphocytes # 1.8 K/mcL (0.6-4.6); Lymphocytes % 18.4 %; Mean Corpuscular HGB Conc 34.3 g/dL (31.6-35.5); Mean Corpuscular Hemoglobin 32.7 pg (28.0-33.3); Mean Corpuscular Volume 95.2 fL (83.0-100.0); Mean Platelet Volume 10.5 fL (9.4-12.4); Monocytes # 0.9 K/mcL (0.0-1.3); Monocytes % 9.8 %; Neutrophils # 6.5 K/mcL (1.6-8.9); Platelet Count 289 K/mcL (140-400); Red Blood Count 4.19 M/mcL (3.82-4.97); Red Cell Distribution Width 12.5 % (11.5-14.5); Segmented Neutrophils % 68.1 %
[2017-11-09 05:25] LABS: BUN/Creatinine Ratio 12 (6-26); Blood Urea Nitrogen 7 mg/dL (8-23); Calcium 9.5 mg/dL (8.6-10.3); Carbon Dioxide 28 mEq/L (23-29); Chloride 98 mEq/L (98-107); Glucose 127 mg/dL (70-105); Magnesium 1.7 mg/dL (1.6-2.6); Osmolality,Calculated 280 (280-300); Sodium 135 mEq/L (136-145); eGFR For African Americans > 60 (> 60); eGFR For Non-African Americans > 60 (> 60)
--- NOTE | 2017-11-09 07:05 | Anesthesia Evaluation PreOp ---
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 History: Other (Depression) Other Medical History: Denies Any Significant HX Anesthesia History: No Prior Anesthetic Complications, Past Anesthesia (Right hop pinning) : No Alcohol Use: none Drug use: none Medications and Allergies Cholecalciferol (D-3) [Vitamin D] 2,000 unit PO DAILY 01/28/17 [History] Imipramine HCl [Tofranil] 50 mg PO BID 01/28/17 [History] Lisinopril/Hydrochlorothiazide [Zestoretic 20-25 mg Tablet] 1 tab PO BID [History] Metoprolol XL (24 HR) Succ [Toprol Xl] 50 mg PO DAILY 01/28/17 [History] Omeprazole [PriLOSEC] 20 mg PO DAILY 01/28/17 [History] Perphenazine [Trilafon] 8 mg PO HS 01/28/17 [History] Phytonadione [Vitamin K] 100 mcg PO DAILY 01/28/17 [History] OxyCODONE/APAP 5/325 [Percocet 5/325 MG] 1 tab PO Q6H PRN 7 Days #28 tablet [Rx] 3 Allergy/AdvReac Type Severity Reaction Status Date / Time aspirin AdvReac See Verified 01/28/17 09:56 Comments Penicillins AdvReac See Verified 01/28/17 09:56 Comments - Meds/Allergy Pre-op Review Medications Reviewed: Yes Allergies Reviewed: Yes Beta Blockers on Current Med List: Yes If Beta Blockers taken, Date/Time (Last Dose taken): 09:42 11/08/17 Anesthesia Results - Labs 11/09/17 04:36 11/09/17 04:36 Echocardiogram Name: Palmira Garcia Date of Study: 01/28/2017 Impressions: LVEF 60-65%. Normal LV chamber size, wall thickness and function. Mild left ventricular diastolic dysfunction. Normal right ventricular structure and function. Mild mitral regurgitation. Mild pulmonary hypertension. - Imaging EKG: report reviewed (SINUS RHYTHM LEFT BUNDLE BRANCH BLOCK) Anesthesia Exam Vital Signs/O2 Sat, Most Current Temp Pulse Resp BP Pulse Ox 98.0 F 85 14 187/85 93 11/09/17 04:17 04/15/18 04:17 11/09/17 04:17 11/09/17 04:17 11/09/17 04:17 - HEENT Pupil (Motor): Pupils equal, EOMI Mallampati: II Teeth: Poor dentition Oral Opening: Greater than 3 - ROCKET SCIENTIST LOC: Oriented ROCKET SCIENTIST Motor: Normal RUE, Normal LUE, Normal RLE, Normal LLE, Normal Face ROCKET SCIENTIST Sensory: Normal: RUE, LUE, RLE, LLE, Face - Cardiac Rhythm: Regular Murmur: None JVD: No Carotid Bruit: No - Pulmonary Breath Sounds: bilateral Clear Respiratory Effort: Symmetrical Anesthesia Assess/Plan ASA Score: 2 Modified Bartley Scale for Level of Consciousness: Cooperative, oriented, and tranquil Anesthetic Plan: General Autologous Blood: Yes Monitoring Plan: Standard Monitors Recovery Plan: PACU
[2017-11-09] MEDS ORDERED: *HR* Labetalol 20 MG/4 ML SYRINGE IVP PRN ×2 (07:11→09:56)
[2017-11-09] MEDS ORDERED: *HR* Midazolam HCl 2 MG/2 ML VIAL IVP PRN ×2 (07:11→09:56)
[2017-11-09] MEDS ORDERED: *HR* Promethazine 25 MG/ML VIAL IVP PRN ×2 (07:11→09:56)
[2017-11-09] MEDS ORDERED: Ondansetron 4 MG/2 ML VIAL IVP ONE ×2 (07:11→09:56)
[2017-11-09] MEDS ORDERED: *HR* FentaNYL (PF) 100 MCG/2 ML VIAL IVP PRN ×2 (07:11→09:56)
[2017-11-09] MEDS ORDERED: *HR* HYDROmorphone 2 MG TABLET PO PRN ×2 (07:11→09:56)
[2017-11-09] MEDS ORDERED: Ethanol\\Acetic Acid\\Na Ace\\Ben 1,000 ML IRRIG.SOLN IR ONE (07:16)
[2017-11-09] MEDS ORDERED: Ringers Solution, Lactated 1,000 ML ONE (07:17)
[2017-11-09] MEDS ORDERED: *HR* FentaNYL (PF) 100 MCG/2 ML VIAL ONE (07:31)
[2017-11-09] MEDS ORDERED: *HR* Propofol 200 MG/20 ML VIAL IVP ONE (07:31)
[2017-11-09] MEDS ORDERED: Lidocaine -MPF 2% 2 ML VIAL ONE (07:33)
[2017-11-09] MEDS ORDERED: *HR* Rocuronium Bromide 50 MG/5 ML VIAL ONE (07:33)
[2017-11-09] MEDS ORDERED: Dexamethasone 4 MG/ML VIAL ONE (07:33)
[2017-11-09] MEDS ORDERED: *HR* Succinylcholine 200 MG/10 ML VIAL IVP ONE (07:33)
[2017-11-09] MEDS ORDERED: Ondansetron 4 MG/2 ML VIAL ONE (07:33)
[2017-11-09] MEDS ORDERED: Clindamycin 900 MG/50 ML 900 MG/50 ML IV.SOLN IVPB ONE (07:43)
--- NOTE | 2017-11-09 09:04 | Orthopedic Operative Note ---
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 This was from her previous surgery for hardware removal. Operative procedure: The patient was brought to the operating room and placed on the operating room table. After general anesthesia was administered the patient was placed in the lateral decubitus position with the operative leg up. All pressure points were padded appropriately and the head was stabilized in the neutral position. The operative extremity was prepped and draped in the sterile surgical fashion patient received IV antibiotic prior to skin incision. A standard posterior approach is made to the operative hip, the incision was made through the skin and subcutaneous tissue hemostasis was obtained with Bovie cautery. Patient had an obvious resolving hematoma this was cultured the encapsulated area excised. The hip sat for 1 minute with an antibacterial solution. Using careful sharp dissection the fascia was identified and incised exposing the external rotators. The external rotators were released off the greater trochanter and tagged with #2 FiberWire suture. The capsule was T'd open the femoral head was removed. The femoral neck cut was made at the appropriate level. The hip was brought into internal rotation and prepared with the box folding machine operator followed by the canal finder followed by broaching process in 20 degrees anteversion. It was broached up to the appropriate size 12. The femoral implant was impacted in place in 20 degrees of anteversion. Trial reduction was performed and an intraoperative x-ray was obtained due to concern with the weakness of her bone. X-ray confirmed good position no new fracture. Trial reduction found the hip to be stable with the appropriate +6 neck 46 head.. The trials were removed and the real implants were impacted in place. The hip was reduced, the hip had full extension and full flexion of the knee was in full extension.the patient had apparent equal leg length. The hip had excellent stability with forward flexion to 90 degrees adduction of 30 degrees and internal rotation of 60 degrees. The hip had no shuck. The hip sat for 1 minute with an antibacterial solution, then was irrigated out with 2 L of pulse irrigation. Fascia was closed with #2 PDS suture. The deep tissue was irrigated and closed deep with #1 PDS suture superficially with 0 PDS suture and skin was closed with skin hattie. The patient was placed in a sterile dressing and abduction pillow. The patient was extubated and transferred to the recovery room in stable condition. Anesthesia: GETA Surgeon: Chito Carlos Was there an grooming assistant present: No Estimated blood loss (cc): 200 Condition: stable Disposition: PACU
[2017-11-09 09:54] LABS: Hematocrit 39.4 % (35.3-44.9); Hemoglobin 13.5 g/dL (11.5-15.4)
[2017-11-09] MEDS ORDERED: Acetaminophen 325 MG TABLET PO PRN (09:56)
[2017-11-09] MEDS ORDERED: OXYCODONE Oral CONC 10 MG/0.5 ML ORAL.SYG SL PRN (09:56)
[2017-11-09] MEDS ORDERED: Sennosides 8.6 MG TABLET PO PRN (09:56)
[2017-11-09] MEDS ORDERED: MOM Conc 10 ML UD.LIQ PO PRN (09:56)
[2017-11-09] MEDS ORDERED: Naloxone 0.4 MG/ML INJ IVP PRN (09:56)
[2017-11-09] MEDS ORDERED: Temazepam 15 MG CAPSULE PO PRN (09:56)
[2017-11-09] MEDS ORDERED: Clindamycin 900 MG/50 ML 900 MG/50 ML IV.SOLN IVPB SCH (09:56)
[2017-11-09] MEDS: Ascorbic Acid 500 MG TABLET PO SCH ×2 (11:12→16:58)
[2017-11-09] MEDS: Metoprolol XL (24 HR) Succ 50 MG TAB.ER.24H PO SCH (11:12)
[2017-11-09] MEDS: Multivit/Ca/Min/Fe/FA 1 TAB TABLET PO SCH (11:12)
--- NOTE | 2017-11-09 11:16 | Internal Med Progress Note ---
Date of Encounter: 11/09/17 Time of Encounter: 11:00 - Assessment and plan (1) Fracture of hip Current Visit: No Status: Acute Assessment and plan: Status post Right hip hemiarthroplasty postop day 0 Patient on DVT prophylaxis and adequate pain control. (2) Hypertension Current Visit: No Status: Acute Assessment and plan: Continue home medications. Hydralazine IV when necessary. Pain control for pain, which will help with control for hypertension. Qualifiers: Hypertension type: essential hypertension Qualified Code(s): I10 - Essential (primary) hypertension (3) DVT prophylaxis Current Visit: No Status: Acute - Time Spent With Patient Total time spent is greater than 50% in coordination of care (as documented) at patient's floor/unit and/or counseling patient: 25 - 35 minutes - Subjective Interval history: Patient returned from the OR. Pain is adequately controlled. Reports no complaints at this time. - Constitutional Vitals: Temp Pulse Resp BP Pulse Ox 99.2 F 84 18 161/66 100 11/09/17 09:45 11/09/17 11:13 11/09/17 09:45 11/09/17 11:13 11/09/17 09:45 General appearance: Present: mild distress, A&O X 3, answers questions appropriately Exam: Physical exam Gen: Comfortable, laying in bed, in no visible distress HEENT: Normocephalic, atraumatic. No conjunctival icterus. Moist oral mucosa. Neck: Supple Lungs: Clear to auscultation, no foreign sounds Heart: Normal S1-S2, no murmurs rubs or gallops Abdomen: Normoactive bowel sounds, no guarding rigidity or tenderness Extremities: No edema clubbing or cyanosis. Right knee in brace Neuro: Alert oriented 3, no focal deficits Skin: No skin lesions, surgical incision site is clean Internal Medicine: Result - Labs CBC & Chem 7: 11/09/17 09:38 11/09/17 04:36 Labs: Short CBC 11/09/17 11/09/17 Range/Units 04:36 09:38 WBC 9.6 (4.3-11.1) K/mcL Hgb 13.7 13.5 (11.5-15.4) g/dL Hct 39.9 39.4 (35.3-44.9) % Plt Count 289 (140-400) K/mcL Neutrophils # 6.5 (1.6-8.9) K/mcL BMP 11/09/17 04:36 Sodium 135 L Potassium 3.0 L Chloride 98 Carbon Dioxide 28 BUN 7 L Creatinine 0.59 L Glucose 127 H Calcium 9.5 - ABG Interpretation ABG results: PT/INR, D-dimer PT 11.5 Seconds (9.4-12.1) 11/08/17 07:02 - Impressions Impressions Hip X-Ray 11/09/17 07:47 IMPRESSION: Right hip arthroplasty without complication. D/ / 11/09/2017 09:48:09 Urban Hensley MD / reyes Interpreting Provider: Urban Hensley MD Hip X-Ray 11/09/17 08:48 IMPRESSION: Right hip arthroplasty without hardware complication. Open surgical wound. D/ / 11/09/2017 09:25:31 Urban Hensley MD / reyes Interpreting Provider: Urban Hensley MD - VTE Documentation of Mechanical Device: Intermittent pneumatic compression device Consult Discharge Plan - Plan Referrals: Rosemary Suarez MD [Primary Care Provider] -
[2017-11-09] MEDS: OXYCODONE Oral CONC 10 MG/0.5 ML ORAL.SYG SL PRN ×2 (12:07→20:19)
--- NOTE | 2017-11-09 13:37 | Anesthesia Evaluation Post Op ---
Date of Encounter: 11/09/17 Time of Encounter: 09:50 - Vital Signs Vital Signs: Vital Signs/O2 Sat/Glucose, Most Current Temp Pulse Resp BP Pulse Ox 11/09/17 09:45 99.2 F 91 18 140/93 100 11/09/17 09:36 90 18 156/73 100 - Lungs Lungs: Clear Ascult./Percussion - Airway Airway: Non-obstructed - Cardiovascular Regular Rate - Mental Status Mental Status: Alert & Oriented, Answers Appropriately - Pain Pain Scale: 0 Pain Scale used: Numeric (1 - 10) - Nausea Vomiting Nausea Vomiting: Not Present - Hydration Hydration: NPO, Has not voided - Discharge PostOp Status: Transfer Patient to floor
[2017-11-09] MEDS: Clindamycin 900 MG/50 ML 900 MG/50 ML IV.SOLN IVPB SCH (16:57)
[2017-11-09] MEDS: Artificial Tears SOLN 15 ML BOTTLE LEFT EYE PRN (17:00)
[2017-11-10] MEDS: OXYCODONE Oral CONC 10 MG/0.5 ML ORAL.SYG SL PRN ×3 (00:18→18:44)
[2017-11-10] MEDS: Clindamycin 900 MG/50 ML 900 MG/50 ML IV.SOLN IVPB SCH (00:19)
[2017-11-10] MEDS: Artificial Tears SOLN 15 ML BOTTLE LEFT EYE PRN (00:43)
[2017-11-10 01:26] LABS: Basophils # 0.1 K/mcL (0.0-0.2); Basophils % 0.4 %; Hematocrit 32.9 % (35.3-44.9); Immature Granulocytes % 0.2 % (0-4); Lymphocytes # 2.2 K/mcL (0.6-4.6); Mean Corpuscular HGB Conc 34.7 g/dL (31.6-35.5); Mean Corpuscular Hemoglobin 32.6 pg (28.0-33.3); Mean Platelet Volume 10.5 fL (9.4-12.4); Monocytes # 2.2 K/mcL (0.0-1.3); Monocytes % 16.6 %; Neutrophils # 8.5 K/mcL (1.6-8.9); Platelet Count 281 K/mcL (140-400); Red Cell Distribution Width 12.5 % (11.5-14.5); Segmented Neutrophils % 65.8 %
[2017-11-10 01:27] LABS: Hemoglobin 11.4 g/dL (11.5-15.4)
[2017-11-10 01:47] LABS: BUN/Creatinine Ratio 18 (6-26); Blood Urea Nitrogen 14 mg/dL (8-23); Calcium 9.1 mg/dL (8.6-10.3); Carbon Dioxide 29 mEq/L (23-29); Chloride 92 mEq/L (98-107); Glucose 170 mg/dL (70-105); Osmolality,Calculated 270 (280-300); Potassium 3.5 mEq/L (3.5-5.1); Sodium 128 mEq/L (136-145); eGFR For African Americans > 60 (> 60); eGFR For Non-African Americans > 60 (> 60)
[2017-11-10] MEDS: Ringers Solution, Lactated 1,000 ML IVC SCH ×2 (06:13→06:35)
--- NOTE | 2017-11-10 06:18 | Orthopedics Progress Note ---
Date of Encounter: 11/10/17 Time of Encounter: 06:18 Subjective Interval history: Patient was seen this morning doing well without complaints. Afebrile vital signs stable. Operative extremity: Neurovascularly intact Dressing clean dry and intact Calves nontender Assessment and plan: Continue with postoperative care Hematocrit 32 Objective Vital signs: Vital Signs Temp Pulse Resp BP Pulse Ox 11/10/17 03:53 97.6 F 88 16 121/66 100 11/09/17 23:33 98.5 F 91 18 128/71 97 11/09/17 20:40 96 11/09/17 18:53 98.5 F 84 14 142/80 96 11/09/17 15:00 97.5 F L 86 18 137/70 96 11/09/17 12:03 98.1 F 87 19 150/82 99 11/09/17 11:13 84 161/66 11/09/17 11:00 97.8 F 94 17 161/66 97 11/09/17 10:28 97.7 F 83 18 170/73 100 11/09/17 10:00 97.6 F 91 16 180/76 100 11/09/17 09:45 99.2 F 91 18 140/93 100 11/09/17 09:36 90 18 156/73 100 11/09/17 09:26 98 18 165/84 98 11/09/17 09:16 98.7 F 90 14 192/81 95 Intake and Output 11/09/17 11/09/17 11/10/17 15:59 23:59 07:59 Intake Total 240 / 240 590 / 590 150 / 150 Output Total 500 / 500 275 / 275 250 / 250 Balance -260 / -260 315 / 315 -100 / -100 Intake: IV Fluids 50 / 50 Cleocin Premix 900 MG/50 ML 900 50 / 50 mg In 50 ml @ 50 mls/hr IVPB Q8HR [facility] Rx#:[id number] Oral 240 / 240 540 / 540 150 / 150 Output: Urine 100 / 100 Estimated Blood Loss 200 / 200 Catheter 300 / 300 275 / 275 150 / 150 Other: Meal Lunch Dinner Percent of Meal Consumed 55% 15% - Labs CBC & BMP: 11/10/17 01:14 11/10/17 01:14 Labs: Abnormal lab results WBC 13.0 K/mcL (4.3-11.1) H 11/10/17 01:14 RBC 3.50 M/mcL (3.82-4.97) L 11/10/17 01:14 Hgb 11.4 g/dL (11.5-15.4) L D 11/10/17 01:14 Hct 32.9 % (35.3-44.9) L 11/10/17 01:14 Monocytes # 2.2 K/mcL (0.0-1.3) H 11/10/17 01:14 Sodium 128 mEq/L (136-145) L 11/10/17 01:14 Chloride 92 mEq/L (98-107) L 11/10/17 01:14 Glucose 170 mg/dL (70-105) H 11/10/17 01:14 Calculated Osmolality 270 (280-300) L 11/10/17 01:14 - VTE Documentation of Mechanical Device: Intermittent pneumatic compression device Consult Discharge Plan - Plan Referrals: Rosemary Suarez MD [Primary Care Provider] -
[2017-11-10] MEDS: Cholecalciferol (D-3) 1,000 UNIT TABLET PO SCH (07:56)
[2017-11-10] MEDS: Ascorbic Acid 500 MG TABLET PO SCH ×2 (07:57→16:34)
[2017-11-10] MEDS: Metoprolol XL (24 HR) Succ 50 MG TAB.ER.24H PO SCH (07:57)
[2017-11-10] MEDS: Multivit/Ca/Min/Fe/FA 1 TAB TABLET PO SCH (07:57)
[2017-11-10] MEDS: *HR* Enoxaparin 30 MG/0.3 ML SYRINGE SQ SCH ×2 (08:44→16:34)
[2017-11-10] MEDS ORDERED: Metoprolol XL (24 HR) Succ 50 MG TAB.ER.24H PO SCH (09:00)
--- NOTE | 2017-11-10 12:45 | Internal Med Progress Note ---
Date of Encounter: 11/10/17 Time of Encounter: 09:20 - Assessment and plan (1) Fracture of hip Current Visit: Yes Status: Acute Assessment and plan: Status post right hip hemiarthroplasty. Postoperative day one. Patient doing well. Continue supportive care and pain control. Evaluated by physical therapy today. Recommended placement to skilled rehabilitation. bottle line worker consulted to make arrangements for this. Moderate risk for complications. DVT prophylaxis with subcutaneous Lovenox. (2) Hypertension Current Visit: Yes Status: Chronic Assessment and plan: Blood pressure is well controlled Qualifiers: Hypertension type: essential hypertension Qualified Code(s): I10 - Essential (primary) hypertension (3) DVT prophylaxis Current Visit: No Status: Acute Assessment and plan: With subcutaneous Lovenox - Time Spent With Patient Total time spent is greater than 50% in coordination of care (as documented) at patient's floor/unit and/or counseling patient: - Subjective Interval history: Patient is sitting up in her chair. Complains of 8 out of 10 in severe pain in right leg. Pain is controlled with oral pain medications that she is receiving. No other complaints at this time. No chest pain or shortness of breath. - Constitutional Vitals: Temp Pulse Resp BP Pulse Ox 98.3 F 89 16 128/74 96 11/10/17 09:50 11/10/17 09:50 11/10/17 09:50 11/10/17 09:50 11/10/17 09:50 General appearance: Present: mild distress, A&O X 3, answers questions appropriately - Neck Neck exam general surgery: Present: supple, trachea midline. Absent: lymphadenopathy - Respiratory Respiratory exam: Present: CTAB. Absent: accessory muscle use, rales, rhonchi, wheezes - Cardiovascular Cardiovascular exam: Present: RRR, +S1, +S2. Absent: diastolic murmur, gallop, rubs, systolic murmur - GI/Abdominal GI/Abdominal exam: Present: normal bowel sounds, soft, no peritoneal signs. Absent: distended, tenderness - Extremities Exam Extremities exam: Present: tenderness (Right hip), warm, radial pulses palpable and symmetrical. Absent: calf tenderness, cyanotic, pedal edema - Neurological Exam Neurological exam: Present: CN II-XII intact, oriented X3, no focal deficits. Absent: facial droop, speech deficit Internal Medicine: Result - Labs CBC & Chem 7: 11/10/17 01:14 11/10/17 01:14 Labs: Short CBC 11/10/17 Range/Units 01:14 WBC 13.0 H (4.3-11.1) K/mcL Hgb 11.4 L D (11.5-15.4) g/dL Hct 32.9 L (35.3-44.9) % Plt Count 281 (140-400) K/mcL Neutrophils # 8.5 (1.6-8.9) K/mcL BMP 11/10/17 01:14 Sodium 128 L Potassium 3.5 Chloride 92 L Carbon Dioxide 29 BUN 14 Creatinine 0.77 Glucose 170 H Calcium 9.1 - ABG Interpretation ABG results: PT/INR, D-dimer PT 11.5 Seconds (9.4-12.1) 11/08/17 07:02 - Impressions Impressions Hip X-Ray 11/09/17 07:47 IMPRESSION: Right hip arthroplasty without complication. D/ / 11/09/2017 09:48:09 Urban Hensley MD / reyes Interpreting Provider: Urban Hensley MD Hip X-Ray 11/09/17 08:48 IMPRESSION: Right hip arthroplasty without hardware complication. Open surgical wound. D/ / 11/09/2017 09:25:31 Urban Hensley MD / reyes Interpreting Provider: Urban Hensley MD - VTE Documentation of Mechanical Device: Venous foot pump, device Consult Discharge Plan - Plan Referrals: Rosemary Suarez MD [Primary Care Provider] -
--- NOTE | 2017-11-10 16:05 | Physician Discharge Referral ---
ExtendedCare Referral Info Transfer To: F Provider in Charge: Hospitalist Provider in Charge after Transfer: PCP - Diagnosis (1) History of right hip hemiarthroplasty Priority: Primary Status: Acute (2) Fracture of hip Priority: Primary Status: Acute (3) Hypertension Priority: Secondary Status: Chronic (4) Depression Priority: Secondary Status: Chronic Expected Duration of Placement: less than 30 days Prognosis: Good Aware of Diagnosis: Patient Aware of Prognosis: Patient - Transfer Medications Home Medications: Cholecalciferol (D-3) [Vitamin D] 2,000 unit PO DAILY 01/28/17 [History] Imipramine HCl [Tofranil] 50 mg PO BID 01/28/17 [History] Lisinopril/Hydrochlorothiazide [Zestoretic 20-25 mg Tablet] 1 tab PO BID [History] Metoprolol XL (24 HR) Succ [Toprol Xl] 50 mg PO DAILY 01/28/17 [History] Omeprazole [PriLOSEC] 20 mg PO DAILY 01/28/17 [History] Perphenazine [Trilafon] 8 mg PO HS 01/28/17 [History] Phytonadione [Vitamin K] 100 mcg PO DAILY 01/28/17 [History] OxyCODONE/APAP 5/325 [Percocet 5/325 MG] 1 tab PO Q6H PRN 7 Days #28 tablet [Rx] Allergies/Adverse Reactions: 3 Allergy/AdvReac Type Severity Reaction Status Date / Time aspirin AdvReac See Verified 01/28/17 09:56 Comments Penicillins AdvReac See Verified 01/28/17 09:56 Comments - Respiratory Orders Smoking Cessation: Smoking cessation has been advised. For more information, call the [place] Tobacco Quit Line at 3-163-ZWUQ-NOW. - Ancillary Orders May use pressure relief devices daily prn, May go on CHANDA w/family/respon constitution party w /meds at nurse discretion PRN, May consult with Dentist, Natural Resources Engineer, Shelf Filler PRN - Mobility Orders Chair, Ambulate - Rehabiliation Orders Rehab Potential: Good Rehab Orders: Evaluation for Physical Therapy, Evaluation for Occupational Therapy Other: Total Hip replacement Precautions KNEE TROM BRACE IN LOCKED EXTENSION AT ALL TIMES Apply cold therapy 3-6x/day for 20 minutes at a time. Encourage ambulation throughout the day and incentive spirometer 10x/hour. Elevate affected extremity as tolerated. Brace: Wear hip abduction pillow when laying/sleeping - Diet Orders Regular CERTIFICATION: I certify that the transfer of the above named patient to an Extended Care Facility is necessary for the continuing treatment of the diagnosis listed. The above information is true and accurate reflection of patient's current condition. Confidential - Redisclosure prohibited without a patient's written consent.
[2017-11-11 01:34] LABS: Basophils # 0.1 K/mcL (0.0-0.2); Basophils % 0.3 %; Eosinophils % 0.3 %; Hematocrit 28.8 % (35.3-44.9); Immature Granulocytes % 0.5 % (0-4); Lymphocytes # 1.9 K/mcL (0.6-4.6); Lymphocytes % 12.6 %; Mean Corpuscular Hemoglobin 33.7 pg (28.0-33.3); Mean Platelet Volume 11.2 fL (9.4-12.4); Monocytes # 1.7 K/mcL (0.0-1.3); Monocytes % 11.3 %; Neutrophils # 11.4 K/mcL (1.6-8.9); Platelet Count 230 K/mcL (140-400); Red Blood Count 2.91 M/mcL (3.82-4.97); Red Cell Distribution Width 12.4 % (11.5-14.5)
[2017-11-11 01:48] LABS: Hemoglobin 9.8 g/dL (11.5-15.4)
[2017-11-11 01:59] LABS: BUN/Creatinine Ratio 25 (6-26); Blood Urea Nitrogen 17 mg/dL (8-23); Calcium 8.6 mg/dL (8.6-10.3); Carbon Dioxide 25 mEq/L (23-29); Chloride 95 mEq/L (98-107); Glucose 144 mg/dL (70-105); Osmolality,Calculated 268 (280-300); Potassium 3.9 mEq/L (3.5-5.1); Sodium 127 mEq/L (136-145); eGFR For African Americans > 60 (> 60); eGFR For Non-African Americans > 60 (> 60)
--- NOTE | 2017-11-11 06:18 | Orthopedics Progress Note ---
Date of Encounter: 11/11/17 Time of Encounter: 06:18 Subjective Interval history: Patient was seen this morning doing well without complaints. Afebrile vital signs stable. Operative extremity: Neurovascularly intact Dressing clean dry and intact Calves nontender Assessment and plan: Continue with postoperative care Orthopedically stable for discharge Objective Vital signs: Vital Signs Temp Pulse Resp BP Pulse Ox 11/11/17 03:56 97.9 F 90 16 132/72 99 11/10/17 23:35 98.9 F 83 16 117/60 100 11/10/17 20:00 100 11/10/17 18:47 97.6 F 83 16 132/65 98 11/10/17 14:49 98.5 F 92 16 126/78 97 11/10/17 09:50 98.3 F 89 16 128/74 96 11/10/17 06:38 98 F 92 16 126/68 99 Intake and Output 11/10/17 11/10/17 11/11/17 15:59 23:59 07:59 Other: # Voids 1 1 # Urine Diapers 1 1 - Labs CBC & BMP: 11/11/17 01:24 11/11/17 01:24 Labs: Abnormal lab results WBC 15.2 K/mcL (4.3-11.1) H 11/11/17 01:24 RBC 2.91 M/mcL (3.82-4.97) L 11/11/17 01:24 Hgb 9.8 g/dL (11.5-15.4) L D 11/11/17 01:24 Hct 28.8 % (35.3-44.9) L 11/11/17 01:24 MCH 33.7 pg (28.0-33.3) H 11/11/17 01:24 Neutrophils # 11.4 K/mcL (1.6-8.9) H 11/11/17 01:24 Monocytes # 1.7 K/mcL (0.0-1.3) H 11/11/17 01:24 Sodium 127 mEq/L (136-145) L 11/11/17 01:24 Chloride 95 mEq/L (98-107) L 11/11/17 01:24 Glucose 144 mg/dL (70-105) H 11/11/17 01:24 Calculated Osmolality 268 (280-300) L 11/11/17 01:24 - VTE Documentation of Mechanical Device: Intermittent pneumatic compression device Consult Discharge Plan - Plan Referrals: Rosemary Suarez MD [Primary Care Provider] -
[2017-11-11] MEDS: *HR* Enoxaparin 30 MG/0.3 ML SYRINGE SQ SCH ×2 (06:25→17:15)
[2017-11-11] MEDS ORDERED: 0.9 % Sodium Chloride 500 ML IVC ONE (07:51)
[2017-11-11] MEDS: Cholecalciferol (D-3) 1,000 UNIT TABLET PO SCH (09:03)
[2017-11-11] MEDS: Multivit/Ca/Min/Fe/FA 1 TAB TABLET PO SCH (09:03)
[2017-11-11] MEDS: Metoprolol XL (24 HR) Succ 50 MG TAB.ER.24H PO SCH (09:03)
[2017-11-11] MEDS: Ascorbic Acid 500 MG TABLET PO SCH ×2 (09:03→17:15)
--- NOTE | 2017-11-11 09:19 | Internal Med Progress Note ---
Date of Encounter: 11/11/17 Time of Encounter: 07:50 - Assessment and plan (1) Orthostatic syncope Current Visit: Yes Status: Acute Assessment and plan: Patient appears to have had a syncopal episode due to orthostasis. Will check orthostatic blood pressure. IV fluids. Monitor with telemetry. EKG reviewed and shows no changes compared to previous with occasional PVCs. (2) Fracture of hip Current Visit: Yes Status: Acute Assessment and plan: Status post right hip hemiarthroplasty. Postoperative day 2. Continue PT OT. Awaiting placement to skilled rehabilitation. Follow up with orthopedics after discharge. (3) Hypertension Current Visit: Yes Status: Chronic Assessment and plan: Monitor blood pressure. Was normal this morning. No elevated after syncopal episode. We will monitor blood pressure. No changes to medication regimen at this time. Qualifiers: Hypertension type: essential hypertension Qualified Code(s): I10 - Essential (primary) hypertension (4) DVT prophylaxis Current Visit: No Status: Acute Assessment and plan: On subcutaneous Lovenox. (5) Anemia Current Visit: Yes Status: Acute Assessment and plan: Hemoglobin 9.8 today. Likely due to blood loss from surgery. Will monitor hemoglobin levels. Qualifiers: Anemia type: other cause Other causes of anemia: acute posthemorrhagic Qualified Code(s): D62 - Acute posthemorrhagic anemia (6) Leukocytosis Current Visit: Yes Status: Acute Assessment and plan: Patient has leukocytosis. Etiology uncertain. Will check urine and also get an x-ray of the chest. Qualifiers: Leukocytosis type: other Qualified Code(s): D72.828 - Other elevated white blood cell count - Time Spent With Patient Total time spent is greater than 50% in coordination of care (as documented) at patient's floor/unit and/or counseling patient: - Subjective Interval history: Rapid response called this morning as patient became dizzy while working with physical therapy and almost passed out. By the time he arrived at patient's bedside she was already improving. On my exam, patient has returned to baseline. She denies any dizziness or prodromal symptoms prior to this episode. She is feeling much better now. Denies any chest pain. No blurred vision. No focal weakness or numbness. - Constitutional Vitals: Temp Pulse Resp BP Pulse Ox 97.6 F 92 20 168/95 100 11/11/17 07:54 11/11/17 07:54 11/11/17 07:54 11/11/17 07:54 11/11/17 07:54 General appearance: Present: mild distress, A&O X 3, answers questions appropriately - Neck Neck exam general surgery: Present: supple, trachea midline. Absent: lymphadenopathy - Respiratory Respiratory exam: Present: CTAB. Absent: accessory muscle use, rales, rhonchi, wheezes - Cardiovascular Cardiovascular exam: Present: RRR, +S1, +S2. Absent: diastolic murmur, gallop, rubs, systolic murmur - GI/Abdominal GI/Abdominal exam: Present: normal bowel sounds, soft, no peritoneal signs. Absent: distended, tenderness - Extremities Exam Extremities exam: Present: tenderness (Right hip region), warm, radial pulses palpable and symmetrical. Absent: calf tenderness, cyanotic, pedal edema - Neurological Exam Neurological exam: Present: CN II-XII intact, oriented X3, no focal deficits. Absent: facial droop, speech deficit - Skin Skin exam: Present: dry, intact Internal Medicine: Result - Labs CBC & Chem 7: 11/11/17 01:24 11/11/17 01:24 Labs: Short CBC 11/11/17 Range/Units 01:24 WBC 15.2 H (4.3-11.1) K/mcL Hgb 9.8 L D (11.5-15.4) g/dL Hct 28.8 L (35.3-44.9) % Plt Count 230 (140-400) K/mcL Neutrophils # 11.4 H (1.6-8.9) K/mcL BMP 11/11/17 01:24 Sodium 127 L Potassium 3.9 Chloride 95 L Carbon Dioxide 25 BUN 17 Creatinine 0.67 Glucose 144 H Calcium 8.6 - ABG Interpretation ABG results: PT/INR, D-dimer PT 11.5 Seconds (9.4-12.1) 11/08/17 07:02 - VTE Documentation of Mechanical Device: Intermittent pneumatic compression device Consult Discharge Plan - Plan Referrals: Rosemary Suarez MD [Primary Care Provider] -
[2017-11-11 18:13] LABS: Bilirubin,Urine Negative (Negative); Blood,Urine Negative (Negative); Clarity,Urine Cloudy (Clear); Color,Urine Yellow (Yellow); Glucose,Urine (UA) Normal (Normal); Ketones,Urine Negative (Negative); Leukocyte Esterase,Urine Trace (Negative); Nitrite,Urine Positive (Negative); PH,Urine 6.5 pH Units (5.0-8.0); Protein,Urine Trace mg/dL (Neg-Trace); Specific Gravity,Urine 1.025 (1.010-1.025); Urobilinogen,Urine Normal (Normal)
[2017-11-11 18:15] LABS: Bacteria,Urine Moderate per hpf (None-Few); Hyaline Casts,Urine None Seen per lpf (None-Few); Squamous Epithelial Cell,Urine Moderate per lpf (None-Few)
[2017-11-11] MEDS: cefTRIAXone 1,000 MG in Water for inj. (sterile) 20 ML 10 ML IVP SCH (20:49)
[2017-11-11] MEDS: Artificial Tears SOLN 15 ML BOTTLE LEFT EYE PRN (20:49)
[2017-11-11] MEDS: 0.9 % Sodium Chloride 1,000 ML IVC SCH (20:49)
[2017-11-11] MEDS: OXYCODONE Oral CONC 10 MG/0.5 ML ORAL.SYG SL PRN (21:09)
[2017-11-12 01:21] LABS: Basophils % 0.2 %; Eosinophils # 0.1 K/mcL (0.0-0.6); Eosinophils % 0.6 %; Hematocrit 23.1 % (35.3-44.9); Immature Granulocytes % 0.5 % (0-4); Lymphocytes # 2.6 K/mcL (0.6-4.6); Lymphocytes % 16.1 %; Mean Corpuscular HGB Conc 34.6 g/dL (31.6-35.5); Mean Corpuscular Hemoglobin 33.1 pg (28.0-33.3); Mean Corpuscular Volume 95.5 fL (83.0-100.0); Mean Platelet Volume 10.9 fL (9.4-12.4); Monocytes # 1.8 K/mcL (0.0-1.3); Monocytes % 11.4 %; Neutrophils # 11.4 K/mcL (1.6-8.9); Platelet Count 215 K/mcL (140-400); Red Blood Count 2.42 M/mcL (3.82-4.97); Red Cell Distribution Width 12.4 % (11.5-14.5); Segmented Neutrophils % 71.2 %
[2017-11-12 01:41] LABS: BUN/Creatinine Ratio 25 (6-26); Blood Urea Nitrogen 15 mg/dL (8-23); Calcium 8.2 mg/dL (8.6-10.3); Carbon Dioxide 30 mEq/L (23-29); Chloride 94 mEq/L (98-107); Glucose 128 mg/dL (70-105); Osmolality,Calculated 268 (280-300); Potassium 3.2 mEq/L (3.5-5.1); Sodium 128 mEq/L (136-145); eGFR For African Americans > 60 (> 60); eGFR For Non-African Americans > 60 (> 60)
--- NOTE | 2017-11-12 04:27 | Event Note ---
Date of Encounter: 11/12/17 Time of Encounter: 04:25 Pt developed A Fib RVR with Hr 120-140 level. Pt has no complaint. No hx of A Fib. Will start cardizem drip. TSH, Mg. Consult Cardio. Not place AC because of lower side Hgb level.
[2017-11-12 04:44] LABS: Magnesium 1.9 mg/dL (1.6-2.6)
[2017-11-12] MEDS: *HR* Enoxaparin 30 MG/0.3 ML SYRINGE SQ SCH (05:54)
[2017-11-12] MEDS: cefTRIAXone 1,000 MG in Water for inj. (sterile) 20 ML 10 ML IVP SCH (08:14)
[2017-11-12] MEDS: Cholecalciferol (D-3) 1,000 UNIT TABLET PO SCH (08:15)
[2017-11-12] MEDS: Metoprolol XL (24 HR) Succ 50 MG TAB.ER.24H PO SCH (08:15)
[2017-11-12] MEDS: Multivit/Ca/Min/Fe/FA 1 TAB TABLET PO SCH (08:15)
[2017-11-12] MEDS: Ascorbic Acid 500 MG TABLET PO SCH ×2 (08:15→17:31)
[2017-11-12] MEDS ORDERED: 0.9 % Sodium Chloride 250 ML ONE ×2 (10:43→17:14)
[2017-11-12] MEDS: 0.9 % Sodium Chloride 1,000 ML IVC SCH (11:27)
--- NOTE | 2017-11-12 11:35 | Cardiology Consult Note ---
<Mehrdad Fitzpatrick - Last Filed: 11/12/17 11:33> Date of Encounter: 11/12/17 Time of Encounter: 11:33 Assessment and Plan (1) Atrial fibrillation Current Visit: Yes Status: Acute Atrial fibrillation with RVR during stay. No previous history. HR controlled on IV cardizem and oral toprol XL. Telemetry shows PAF. Atrial fibrillation with periods of NSR. NSR on my exam. TTE conpleted 01/2017 showed preserved EF at 60-65%. Mild mitral regurgitation, and mild pulmonary artery hypertension. TSH is normal. Continue toprol and convert IV cardizem to oral cardizem 240 mg daily. CHADS VASC= 4 for gender, age 1, and HTN. Ideally AC with coumadin or NOAC is recommended. Due to postoperative anemia will defer AC at this time. Hgb 13 on admit and 8.0 today. Consider startting AC when anemia is stable and cleared from surgical standpoint. I discussed increased risk of CVA and risk of bleeding with patient and son and they voiced understanding. Qualifiers: Atrial fibrillation type: paroxysmal Qualified Code(s): I48.0 - Paroxysmal atrial fibrillation (2) Left bundle branch block (LBBB) Current Visit: No Status: Chronic H/o LBBB. Appears to be rate dependent. TTE completed one year ago for eval and showed preserved EF. Discussion w patient/family: The assessment and plan as outlined above was discussed with the patient and/or family members who expressed understanding and agreement. All questions were answered. Thank you for involving us in the care of your patient. Please call with any questions. History of Present Illness Consult date: 11/12/17 Requesting physician: Dory Alexander Consult reason: new atrial fibrillation with RVR Chief complaint: Fall, s/p hip hemiarthroplasty History of present illness: Ms. Garcia is a 82 year old female with past medical history of LBBB and HTN. She presents from [facility] with increasing right hip pain and was s/p right hip surgery 01/2017. This admission she underwent right hip hemiarthroplasty with Dr. Carlos on 11/09/17. Yesterday she developed atrial fibrillation with RVR. She denies symptoms with her afib. Denies previous history. She is currently undergoing blood transfusion for post-operative anemia. Past Med Surg Social Fam HX - Past Medical History Medical history: hypertension Psychiatric history: depression - Past Surgical History Surgical History: non-contributory - Social History Smoking Status: Never smoker Smokeless Tobacco Status: No Alcohol use: none Drug use: none - Family History Brother Adopted: No Living Status: Hx Family Cancer: Yes Father Living Status: Hx Family Cardiac Disorders: Yes ([place]) Mother Name: Erika Age: 75 Family Member Ethnicity: Non- Living Status: Age at : 75 Cause of : DM complications Hx Family Cardiac Disorders: No Hx Family Respiratory Disorders: No Hx Family Cancer: No Hx Family GI Disorders: No Hx Family Genitourinary Disorders: No Hx Family Endocrine Disorder: Yes Hx Family Musculoskeletal Disorders: No Hx Family Neuromuscular Disorders: No Hx Family Neurologic Disorders: No Hx Family HEENT Disorders: No Hx Family Autoimmune Disorders: No Hx Family Reproductive Disorders: No Hx Family Psychosocial Disorders: No Hx Family Medical Disorders: No Medications and Allergies Cholecalciferol (D-3) [Vitamin D] 2,000 unit PO DAILY 01/28/17 [History] Imipramine HCl [Tofranil] 50 mg PO BID 01/28/17 [History] Lisinopril/Hydrochlorothiazide [Zestoretic 20-25 mg Tablet] 1 tab PO BID [History] Metoprolol XL (24 HR) Succ [Toprol Xl] 50 mg PO DAILY 01/28/17 [History] Omeprazole [PriLOSEC] 20 mg PO DAILY 01/28/17 [History] Perphenazine [Trilafon] 8 mg PO HS 01/28/17 [History] Phytonadione [Vitamin K] 100 mcg PO DAILY 01/28/17 [History] OxyCODONE/APAP 5/325 [Percocet 5/325 MG] 1 tab PO Q6H PRN 7 Days #28 tablet [Rx] 3 Allergy/AdvReac Type Severity Reaction Status Date / Time aspirin AdvReac See Verified 01/28/17 09:56 Comments Penicillins AdvReac See Verified 01/28/17 09:56 Comments All Systems Review: The remainder of the systems were reviewed and are negative Physical Examination Vital Signs, Last 4 Hours Temp Pulse Resp BP Pulse Ox 11/12/17 11:16 98.2 F 73 14 106/60 100 11/12/17 11:03 73 103/62 11/12/17 11:01 98.0 F 73 14 103/62 100 11/12/17 10:53 74 99/41 11/12/17 10:41 70 105/57 11/12/17 10:21 71 111/65 11/12/17 10:13 71 98/62 11/12/17 10:01 75 99/45 11/12/17 09:32 78 100/58 11/12/17 09:30 84 110/64 11/12/17 09:19 82 111/66 11/12/17 09:15 77 107/65 11/12/17 09:00 84 108/58 11/12/17 08:45 84 106/46 11/12/17 08:30 88 116/65 11/12/17 08:18 89 99/54 11/12/17 08:05 93 106/53 11/12/17 07:50 92 117/63 11/12/17 07:35 83 112/68 General: Conversant, No Apparent Distress HEENT: Atraumatic, Normocephaly, Mucus Membranes Moist Neck: No JVD, Normal carotid pulses Cardiac: Reg Rate and Rhythm, Normal S1 and S2, No Murmur, Other (Apical regular , NSR currently) Lungs: Normal Breath Sounds, No Wheeze, Rales, Rhonchi Neuro: Alert and responsive, No focal deficits noted Abdomen: Soft, Non-Tender Skin: No rashes noted on visualized skin Musculoskeletal: No Chest Wall Tenderness Extremities: No Clubbing, No Cyanosis, No Edema, Normal Pulses Results 11/12/17 01:10 11/12/17 01:10 Lab Results 11/12/17 11/12/17 01:10 01:10 WBC 16.0 H Hgb 8.0 L D Hct 23.1 L Plt Count 215 Sodium 128 L Potassium 3.2 L Chloride 94 L Carbon Dioxide 30 H BUN 15 Creatinine 0.59 L Glucose 128 H Calcium 8.2 L Magnesium 1.9 TSH 2.280 - Imaging and Cardiology Echo: report reviewed - EKG Interpretation EKG results cardiology: personally reviewed Consult Discharge Plan - Plan Referrals: Rosemary Suarez MD [Primary Care Provider] - <Xochitl Wright - Last Filed: 11/12/17 17:30> Date of Encounter: 11/12/17 - Attending Attestation I examined this patient and my medical decision-making was reviewed with the ACUTE CARE ASSISTANT. I agree with the documented findings, disposition and treatment plan as described. Ms. Garcia developed post op AFIB RVR after undergoing right hip hemiarthroplasty 11/09/2017 which is a new diagnosis probably related to post surgical inflammation and acute blood loss anemia. She appears to be back in NSR. IV cardizem converted to oral in addition to toprol. Ideally would recommend full anticoagulation for afib CVA prevention. However, will defer full anticoagulation at this time given acute blood loss anemia. Recommend starting aspirin when safe from a surgical standpoint and consider full anticoagulation prior to discharge or as an outpatient. Will sign off at this time. Please call with questions. Assessment and Plan Discussion w patient/family: The assessment and plan as outlined above was discussed with the patient and/or family members who expressed understanding and agreement. All questions were answered. Thank you for involving us in the care of your patient. Please call with any questions. History of Present Illness History of present illness: Ms. Garcia is a 82 year old female All Systems Review: The remainder of the systems were reviewed and are negative Physical Examination Vital Signs, Last 4 Hours Temp Pulse Resp BP Pulse Ox 11/12/17 15:58 98.6 F 69 13 114/66 98 11/12/17 15:08 98.4 F 65 66 122/54 100 11/12/17 14:00 97.9 F 65 19 122/67 95 Results 11/12/17 01:10 11/12/17 01:10 Lab Results 11/12/17 11/12/17 01:10 01:10 WBC 16.0 H Hgb 8.0 L D Hct 23.1 L Plt Count 215 Sodium 128 L Potassium 3.2 L Chloride 94 L Carbon Dioxide 30 H BUN 15 Creatinine 0.59 L Glucose 128 H Calcium 8.2 L Magnesium 1.9 TSH 2.280
[2017-11-12] MEDS: Diltiazem CD (24hr) 240 MG CAPSULE PO SCH (12:08)
--- NOTE | 2017-11-12 13:51 | Internal Med Progress Note ---
Date of Encounter: 11/12/17 Time of Encounter: 10:30 - Assessment and plan (1) Atrial fibrillation Current Visit: Yes Status: Acute Assessment and plan: Rapid ventricular response. On IV Cardizem drip with improved heart rate. We will slowly transition to oral Cardizem. No prior diagnosis of A. fib. Cardiology consulted. Patient has a [id number] score of 4. However given her anemia, we will hold off on anticoagulation for now. This will need to be addressed as outpatient once hemoglobin levels stabilized. Moderate risk for complications. Qualifiers: Atrial fibrillation type: paroxysmal Qualified Code(s): I48.0 - Paroxysmal atrial fibrillation (2) Anemia Current Visit: Yes Status: Acute Assessment and plan: Hemoglobin 8 today. Will transfuse 2 units of packed blood cells. Likely postoperative anemia. Will monitor blood counts closely. Qualifiers: Anemia type: other cause Other causes of anemia: acute posthemorrhagic Qualified Code(s): D62 - Acute posthemorrhagic anemia (3) Orthostatic syncope Current Visit: Yes Status: Acute Assessment and plan: No new episodes. Symptoms have improved overall. (4) Fracture of hip Current Visit: Yes Status: Acute Assessment and plan: Status post right hip hemiarthroplasty. Awaiting placement to skilled rehabilitation once medically stable. (5) Hypertension Current Visit: Yes Status: Chronic Assessment and plan: Well controlled at this time. Qualifiers: Hypertension type: essential hypertension Qualified Code(s): I10 - Essential (primary) hypertension (6) DVT prophylaxis Current Visit: No Status: Acute Assessment and plan: Patient's hemoglobin has dropped to 8 today. We will hold Lovenox for now. Resume when blood counts improved. (7) Leukocytosis Current Visit: Yes Status: Acute Assessment and plan: Due to UTI Qualifiers: Leukocytosis type: other Qualified Code(s): D72.828 - Other elevated white blood cell count (8) Urinary tract infection Current Visit: Yes Status: Acute Assessment and plan: Urinalysis concerning for acute UTI. Patient started on Rocephin. Will follow culture results. Qualifiers: Urinary tract infection type: acute cystitis Hematuria presence: without hematuria Qualified Code(s): N30.00 - Acute cystitis without hematuria (9) Hyponatremia Current Visit: Yes Status: Acute Assessment and plan: Likely hypovolemic. Sodium 128 today. Patient does appear to have chronic hyponatremia. We will monitor sodium levels. - Time Spent With Patient Total time spent is greater than 50% in coordination of care (as documented) at patient's floor/unit and/or counseling patient: - Subjective Interval history: Patient is currently lying in bed. Denies any chest pain or palpitations. Comfortable. She went into atrial fibrillation last night with heart rate going up to 134. Says she was started on IV Cardizem drip. Heart rate has improved since then. She denies any dizziness or lightheadedness. She has not worked with physical therapy today - Constitutional Vitals: Temp Pulse Resp BP Pulse Ox 98.2 F 74 14 110/61 100 11/12/17 11:16 11/12/17 12:08 11/12/17 11:16 11/12/17 12:55 11/12/17 11:16 General appearance: Present: mild distress, A&O X 3, answers questions appropriately - Neck Neck exam general surgery: Present: supple, trachea midline. Absent: lymphadenopathy - Respiratory Respiratory exam: Present: CTAB. Absent: accessory muscle use, rales, rhonchi, wheezes - Cardiovascular Cardiovascular exam: Present: RRR, +S1, +S2. Absent: diastolic murmur, gallop, rubs, systolic murmur - GI/Abdominal GI/Abdominal exam: Present: normal bowel sounds, soft, no peritoneal signs. Absent: distended, tenderness - Extremities Exam Extremities exam: Present: warm, radial pulses palpable and symmetrical. Absent : calf tenderness, cyanotic, pedal edema - Neurological Exam Neurological exam: Present: CN II-XII intact, oriented X3, no focal deficits. Absent: facial droop, speech deficit - Skin Skin exam: Present: dry, intact Internal Medicine: Result - Labs CBC & Chem 7: 11/12/17 01:10 11/12/17 01:10 Labs: Short CBC 11/12/17 Range/Units 01:10 WBC 16.0 H (4.3-11.1) K/mcL Hgb 8.0 L D (11.5-15.4) g/dL Hct 23.1 L (35.3-44.9) % Plt Count 215 (140-400) K/mcL Neutrophils # 11.4 H (1.6-8.9) K/mcL BMP 11/12/17 01:10 Sodium 128 L Potassium 3.2 L Chloride 94 L Carbon Dioxide 30 H BUN 15 Creatinine 0.59 L Glucose 128 H Calcium 8.2 L Urine 11/11/17 Range/Units 18:00 Urine Color Yellow (Yellow) Urine Clarity Cloudy A (Clear) Urine pH 6.5 (5.0-8.0) pH Units Ur Specific [place] 1.025 (1.010-1.025) Urine Protein Trace (Neg-Trace) mg/dL Urine Glucose (UA) Normal (Normal) mg/dL - ABG Interpretation ABG results: PT/INR, D-dimer PT 11.5 Seconds (9.4-12.1) 11/08/17 07:02 - Impressions Impressions Chest X-Ray 11/11/17 09:23 IMPRESSION: No consolidation identified. D/ / 11/11/2017 14:20:38 Santosh Zuniga MD / shay Interpreting Provider: Santosh Zuniga MD - VTE Documentation of Mechanical Device: Venous foot pump, device Consult Discharge Plan - Plan Referrals: Rosemary Suarez MD [Primary Care Provider] -
[2017-11-13 01:26] LABS: Basophils % 0.2 %; Eosinophils # 0.1 K/mcL (0.0-0.6); Eosinophils % 0.9 %; Hematocrit 28.8 % (35.3-44.9); Immature Granulocytes % 0.7 % (0-4); Lymphocytes % 15.1 %; Mean Corpuscular HGB Conc 34.7 g/dL (31.6-35.5); Mean Corpuscular Hemoglobin 32.1 pg (28.0-33.3); Mean Corpuscular Volume 92.3 fL (83.0-100.0); Mean Platelet Volume 11.4 fL (9.4-12.4); Monocytes # 1.6 K/mcL (0.0-1.3); Monocytes % 12.5 %; Neutrophils # 9.2 K/mcL (1.6-8.9); Nucleated Red Blood Cells 0.2 /100 WBC (0); Platelet Count 226 K/mcL (140-400); Red Blood Count 3.12 M/mcL (3.82-4.97); Red Cell Distribution Width 14.4 % (11.5-14.5); Segmented Neutrophils % 70.6 %
[2017-11-13 01:42] LABS: BUN/Creatinine Ratio 27 (6-26); Blood Urea Nitrogen 14 mg/dL (8-23); Calcium 8.1 mg/dL (8.6-10.3); Carbon Dioxide 27 mEq/L (23-29); Chloride 95 mEq/L (98-107); Glucose 135 mg/dL (70-105); Osmolality,Calculated 269 (280-300); Potassium 3.3 mEq/L (3.5-5.1); Sodium 128 mEq/L (136-145); eGFR For African Americans > 60 (> 60); eGFR For Non-African Americans > 60 (> 60)
[2017-11-13] MEDS: cefTRIAXone 1,000 MG in Water for inj. (sterile) 20 ML 10 ML IVP SCH (09:29)
[2017-11-13] MEDS: Metoprolol XL (24 HR) Succ 50 MG TAB.ER.24H PO SCH (09:30)
[2017-11-13] MEDS: Ascorbic Acid 500 MG TABLET PO SCH ×2 (09:30→17:54)
[2017-11-13] MEDS: Cholecalciferol (D-3) 1,000 UNIT TABLET PO SCH (09:30)
[2017-11-13] MEDS: Diltiazem CD (24hr) 240 MG CAPSULE PO SCH (09:30)
[2017-11-13] MEDS: Multivit/Ca/Min/Fe/FA 1 TAB TABLET PO SCH (09:30)
--- NOTE | 2017-11-13 11:56 | Event Note ---
Date of Encounter: 11/12/17 Time of Encounter: 12:00 Delayed entry PCR- POD#3 Right hip hemiarthroplasty after fracture 11/09/17 Dr. valdiiva PCR - Patient seen at bedside. Labwork and medications reviewed. Pain control: Adequate Participating in PT. All questions and concerns addressed. Educated on use of incentive spirometer, ambulation, and hydration. Patient educated on post-operative restrictions and care. Addressed: CONTINUE TROM TO RIGHT KNEE IN LOCKED EXTENSION AT ALL TIMES. D/C plan: ECF when medically stable
[2017-11-13] MEDS: OXYCODONE Oral CONC 10 MG/0.5 ML ORAL.SYG SL PRN (12:16)
--- NOTE | 2017-11-13 15:27 | Discharge Summary ---
- NOTES TO OUTPATIENT PROVIDER Notes to Outpatient Provider: Patient admitted here with right hip fracture. Underwent right hip hemiarthroplasty. Postsurgery developed worsening anemia and received 2 units blood transfusion. Also developed an episode of orthostatic syncope which has now resolved. Working with physical therapy. Will be discharged to skilled rehabilitation. Also diagnosed with new onset atrial fibrillation. Not started on anticoagulation due to anemia which will need outpatient workup. Patient also has UTI. Urine growing gram-positive cocci. Placing patient on Bactrim. We will check CBC, basic panel on 11/15/17. Orders not resulted at time of discharge: Pending orders 11/09/17 08:08 Culture,Anaerobic [RM] Routine 11/11/17 18:00 Culture,Urine [RM] Stat 11/12/17 03:53 EKG [ECG 12 lead ECG] [ECG] Stat Date of Encounter: 11/13/17 Time of Encounter: 09:00 - Discharge Diagnosis (1) Fracture of hip Priority: Primary Status: Acute Qualifiers: Encounter type: initial encounter Fracture type: closed Laterality: right Qualified Code(s): S72.001A - Fracture of unspecified part of neck of right femur, initial encounter for closed fracture (2) Atrial fibrillation Priority: Secondary Status: Acute Qualifiers: Atrial fibrillation type: paroxysmal Qualified Code(s): I48.0 - Paroxysmal atrial fibrillation (3) Anemia Priority: Secondary Status: Acute Qualifiers: Anemia type: other cause Other causes of anemia: acute posthemorrhagic Qualified Code(s): D62 - Acute posthemorrhagic anemia (4) Orthostatic syncope Priority: Secondary Status: Acute (5) Hypertension Priority: Secondary Status: Chronic Qualifiers: Hypertension type: essential hypertension Qualified Code(s): I10 - Essential (primary) hypertension (6) DVT prophylaxis Priority: Secondary Status: Acute (7) Leukocytosis Priority: Secondary Status: Acute Qualifiers: Leukocytosis type: other Qualified Code(s): D72.828 - Other elevated white blood cell count (8) Urinary tract infection Priority: Secondary Status: Acute Qualifiers: Urinary tract infection type: acute cystitis Hematuria presence: without hematuria Qualified Code(s): N30.00 - Acute cystitis without hematuria (9) Hyponatremia Priority: Secondary Status: Acute Hospital course: Ms. Garcia is a 82 year old female patient with history of essential hypertension who was hospitalized here with pain in her right hip region. She was diagnosed with acute right hip fracture. She was evaluated by orthopedics and recommended right hip hemiarthroplasty. Patient underwent this procedure on 11/09/17. She has been receiving physical therapy since then while awaiting placement to skilled rehabilitation. During her recuperation, She developed an episode of orthostatic syncope likely due to anemia and dehydration. She was treated with PRBC transfusion and IV fluids with improvement in her symptoms. She also developed atrial fibrillation and urinary tract infection. She required intravenous Cardizem and has been transitioned to oral Cardizem with improved heart rate control. She is now been placed on anticoagulation due to anemia. She will however be on anti- correlation for DVT prophylaxis for her right hip surgery. Her urine cultures are positive for gram-positive cocci. As such she will be discharged on Bactrim. She will require follow-up with GI to further evaluate her anemia if it is persistent. At this time it is believed to be postoperative to blood loss from surgery. Discharge discussed with: patient, nurse - Time Spent with Patient Total time spent providing and/or coordinating discharge services: Greater than 30 minutes (40 min) - Discharge Medications Prescriptions: Enoxaparin [Lovenox] 30 mg SQ Q12HCO #14 syringe Diltiazem CD (24hr) [Cardizem CD] 240 mg PO DAILY #60 cap.er.24h Ferrous Sulfate 325 mg PO BIDWM #60 tablet OxyCODONE/APAP 5/325 [Percocet 5/325 MG] 1 tab PO Q6H PRN 5 Days #14 tablet PRN Reason: Pain Sulfamethoxazole/Trimeth DS [Bactrim DS] 1 each PO BID #10 tablet Home Medications: Cholecalciferol (D-3) [Vitamin D] 2,000 unit PO DAILY 01/28/17 [History] Imipramine HCl [Tofranil] 50 mg PO BID 01/28/17 [History] Lisinopril/Hydrochlorothiazide [Zestoretic 20-25 mg Tablet] 1 tab PO BID [History] Metoprolol XL (24 HR) Succ [Toprol Xl] 50 mg PO DAILY 01/28/17 [History] Omeprazole [PriLOSEC] 20 mg PO DAILY 01/28/17 [History] Perphenazine [Trilafon] 8 mg PO HS 01/28/17 [History] Phytonadione [Vitamin K] 100 mcg PO DAILY 01/28/17 [History] Diltiazem CD (24hr) [Cardizem CD] 240 mg PO DAILY #60 cap.er.24h 11/13/17 [Rx] Enoxaparin [Lovenox] 30 mg SQ Q12HCO #14 syringe 11/13/17 [Rx] Ferrous Sulfate 325 mg PO BIDWM #60 tablet 11/13/17 [Rx] Multivit/Ca/Min/Fe/FA [Thera M Plus] 1 tab PO DAILY tablet 11/13/17 [Rx] OxyCODONE/APAP 5/325 [Percocet 5/325 MG] 1 tab PO Q6H PRN 5 Days #14 tablet [Rx] Sulfamethoxazole/Trimeth DS [Bactrim DS] 1 each PO BID #10 tablet 11/13/17 [Rx] Allergies/Adverse Reactions: 3 Allergy/AdvReac Type Severity Reaction Status Date / Time aspirin AdvReac See Verified 01/28/17 09:56 Comments Penicillins AdvReac See Verified 01/28/17 09:56 Comments Date of admission: 11/08/17 05:35 Primary care physician: Rosemary Suarez MD Consults: 11/08/17 05:42 Consult to Orthopedic Surgery [CONS] Routine Consulting Provider: Orthoped[facility] Reason for Consult: Pt transferred from [facility] for Rt hip fracture, Dr Carlos was informed earlier last night. Call Completed: Yes 11/09/17 09:56 Consult to Nurse Navigator [CONS] Routine Comment: ortho navigator Consult to Occupational Therapy [CONS] Routine Comment: Evaluate, develop and implement POC Reason for Consult: total hip replacement Does patient have active BEDREST order?: No Is patient medically & hemodynamically stable?: Yes Consult to Physical Therapy [CONS] Routine Comment: Evaluate, develop and implement POC Reason for Consult: total hip replacement Does patient have active BEDREST order?: No Is patient medically & hemodynamically stable?: Yes Consult to Showroom Consultant [CONS] Routine Reason for SW Consult: post op joint replacement RT Post Op Consult [CONS] Routine 11/12/17 04:23 Consult to Cardiology [CONS] Routine Comment: Consulting Provider: [facility] Reason for Consult: New onset A Fib with RVR Call Completed: Yes Discharging clinician: Darius Villatoro Anticipated date of discharge: 11/13/17 - Constitutional Vitals: Temp Pulse Resp BP Pulse Ox 97.8 F 87 16 138/67 95 11/13/17 11:00 11/13/17 11:00 11/13/17 11:00 11/13/17 11:00 11/13/17 11:00 General appearance: Present: cooperative, A&O X 3, answers questions appropriately - Neck Neck exam general surgery: Present: supple, trachea midline. Absent: lymphadenopathy - Respiratory Respiratory exam: Present: CTAB. Absent: accessory muscle use, rales, rhonchi, wheezes - Cardiovascular Cardiovascular exam: Present: RRR, +S1, +S2. Absent: diastolic murmur, gallop, rubs, systolic murmur - GI/Abdominal GI/Abdominal exam: Present: normal bowel sounds, soft, no peritoneal signs. Absent: distended, tenderness - Extremities Exam Extremities exam: Present: warm, radial pulses palpable and symmetrical. Absent : calf tenderness, cyanotic, pedal edema - Neurological Exam Neurological exam: Present: alert, CN II-XII intact, oriented X3, no focal deficits. Absent: facial droop, speech deficit - Patient Status Disposition: Transfer SNF Functional capacity at discharge: wheelchair bound Overall status at discharge: patient is progressing back to baseline - Discharge Instructions Instructions: Atrial Fibrillation (DC), Anemia (GEN) Follow Up With: Rosemary Suarez MD [Primary Care Provider] - (in 1-2 weeks) Chito Carlos MD [Partnered Physician] - (in 1-2 weeks) Additional Instructions: Discharge Instructions: Total Hip Replacement Please call [facility] ([phone]), your Primary Care Physician, or report to the Emergency Room if you have any of the following symptoms: Nausea, vomiting, fever greater that 101.5, swelling, chest pain, shortness of breath, increased pain/redness/drainage/odor for your incision site, numbness/ tingling, or any other concerning symptoms. ACTIVITY:Weight-bearing as tolerated for 8 weeks with hip dislocation precautions that physical therapy taught you. You may progress as tolerated under the guidance of your physical therapist. You do not need to sleep with a pillow between your legs. You can also seep on the operative side or on your stomach. MEDICATIONS: Upon discharge resume your home medications. Take all the medications as prescribed. Take a stool softener if taking narcotic pain medications. Stool softeners are only effective if you drink enough fluids. Drink 6-8 glass of water or fluids a day, unless this is not allowed for another health problem. Despite using stool softeners, if you haven't had a bowel movement in 3 days, please switch to a gentle laxative. Gentle laxatives are sold over the counter. You should have a bowel movement within 24 hours, if not call the office. You will be discharged from the hospital with a prescription for pain medication. You are encouraged to decrease the use of narcotic pain medication as tolerated. Should you require a refill, please call the office. [facility] prescribes narcotic pain medication for only 4-6 weeks after surgery. If you require pain medication beyond this time period, you may be referred to your Primary Care Physician or to the Pain Clinic for further evaluation. Plan ahead for refills on pain medication as many narcotics either need to be picked up at the office or mailed. It is best to call 48-72 hours in advance of needing a prescription refill so you don't run out of medication. To help control the post-operative pain, you may take NSAIDs (Aleve,Advil, Motrin, ibuprofen, naprosyn) or Tylenol as prescribed on the bottle in addition to the pain medication. ANTICOAGULATION (blood thinners): Continue your Aspirin, Lovenox or Coumadin as prescribed to help prevent a blood clot in the leg or in the lungs. As long as your incision remains dry and you tolerate the NSAIDs (Aleve, Advil, Motrin, Ibuprofen, Naprosyn), it is OK to use the NSAIDS while you are taking your anticoagulation medication. Should your incision start to drain, stop the NSAID and contact our office. Common symptoms of blood clot in the legs include: localized pain, swelling, calf tenderness, redness or discoloration of the skin. Blood clot in the lung symptoms include: shortness of breath, rapid pulse, sweating, and chest pain that worsens with deep breathing, coughing up blood, lightheadedness, feelings of anxiety. If you experience any of these symptoms notify your physician immediately, go to the emergency room, or if having trouble breathing, call 911. WOUND CARE: Leave the dressing on for 7 to 10days. You may change the dressing if it is saturated greater than 50%. Do not get the dressing wet at anytime. Wash your hands with antibacterial soap, rinse and dry prior to any wound care. If you have hattie the visiting nurse or rehab facility can remove the stapes 10-14 days after surgery and place steri-strips across the wound. Leave the steri-strips in place until they fall off on their own. You may let water from the shower run on top of the steri-strips. If you do not have a visiting nurse or rehab facility, you will need to return to the office at 10-14 days for the hattie to be removed. If you have itching or redness around the dressing call the office. FOLLOW-UP: Please follow up with your surgeon in the orthopedic clinic in 6 weeks from the day of surgery. If you have hattie that need to be removed, you will need to come back to the office in 10-14 days from the day of surgery. - Diet and Activity Activity: increase activity as tolerated Diet: low fat, low cholesterol, low salt diet - VTE Documentation of Mechanical Device: Intermittent pneumatic compression device
[2017-11-13 15:30] VITALS: BP 141/73
--- NOTE | 2017-11-13 15:31 | Physician Discharge Referral ---
ExtendedCare Referral Info Provider in Charge after Transfer: PCP Institutional Level of Care: Skilled - Diagnosis (1) Fracture of hip Priority: Primary Status: Acute (2) Atrial fibrillation Priority: Secondary Status: Acute (3) Anemia Priority: Secondary Status: Acute (4) Orthostatic syncope Priority: Secondary Status: Acute (5) Hypertension Priority: Secondary Status: Chronic (6) DVT prophylaxis Priority: Secondary Status: Acute (7) Leukocytosis Priority: Secondary Status: Acute (8) Urinary tract infection Priority: Secondary Status: Acute (9) Hyponatremia Priority: Secondary Status: Acute Prognosis: Fair Aware of Diagnosis: Patient Aware of Prognosis: Patient - Transfer Medications Prescriptions: Enoxaparin [Lovenox] 30 mg SQ Q12HCO #14 syringe Diltiazem CD (24hr) [Cardizem CD] 240 mg PO DAILY #60 cap.er.24h Ferrous Sulfate 325 mg PO BIDWM #60 tablet OxyCODONE/APAP 5/325 [Percocet 5/325 MG] 1 tab PO Q6H PRN 5 Days #14 tablet PRN Reason: Pain Sulfamethoxazole/Trimeth DS [Bactrim DS] 1 each PO BID #10 tablet Home Medications: Cholecalciferol (D-3) [Vitamin D] 2,000 unit PO DAILY 01/28/17 [History] Imipramine HCl [Tofranil] 50 mg PO BID 01/28/17 [History] Lisinopril/Hydrochlorothiazide [Zestoretic 20-25 mg Tablet] 1 tab PO BID [History] Metoprolol XL (24 HR) Succ [Toprol Xl] 50 mg PO DAILY 01/28/17 [History] Omeprazole [PriLOSEC] 20 mg PO DAILY 01/28/17 [History] Perphenazine [Trilafon] 8 mg PO HS 01/28/17 [History] Phytonadione [Vitamin K] 100 mcg PO DAILY 01/28/17 [History] Diltiazem CD (24hr) [Cardizem CD] 240 mg PO DAILY #60 cap.er.24h 11/13/17 [Rx] Enoxaparin [Lovenox] 30 mg SQ Q12HCO #14 syringe 11/13/17 [Rx] Ferrous Sulfate 325 mg PO BIDWM #60 tablet 11/13/17 [Rx] Multivit/Ca/Min/Fe/FA [Thera M Plus] 1 tab PO DAILY tablet 11/13/17 [Rx] OxyCODONE/APAP 5/325 [Percocet 5/325 MG] 1 tab PO Q6H PRN 5 Days #14 tablet [Rx] Sulfamethoxazole/Trimeth DS [Bactrim DS] 1 each PO BID #10 tablet 11/13/17 [Rx] Allergies/Adverse Reactions: 3 Allergy/AdvReac Type Severity Reaction Status Date / Time aspirin AdvReac See Verified 01/28/17 09:56 Comments Penicillins AdvReac See Verified 01/28/17 09:56 Comments - Respiratory Orders Smoking Cessation: Smoking cessation has been advised. For more information, call the [place] Tobacco Quit Line at 4-850-WDWF-NOW. - Lab Orders Lab Orders: Other (include drug levels w/frequency) (CBC, basic panel on . Send results to PCP) - Advance Directives Code Status: Full Code - Mobility Orders Other (per PT) - Rehabiliation Orders Rehab Potential: Fair Rehab Orders: Evaluation for Physical Therapy, Evaluation for Occupational Therapy - Diet Orders Cardiac CERTIFICATION: I certify that the transfer of the above named patient to an Extended Care Facility is necessary for the continuing treatment of the diagnosis listed. The above information is true and accurate reflection of patient's current condition. Confidential - Redisclosure prohibited without a patient's written consent.
--- NOTE | 2017-11-14 14:52 | Electrocardiograph Report ---
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
== END 2017-11-13 18:41 | DRG 470 ==
LOC: 3NENU → SUATTDRO 05:35
PROVIDERS: ADMIT Internal Medicine; ATTEND Internal Medicine

== ENCOUNTER 2018-03-10 15:37 | Inpatient (IN) ==
[2018-03-10] MEDS ORDERED: Naloxone 0.4 MG/ML INJ IVP PRN (17:32)
[2018-03-10] MEDS ORDERED: Acetaminophen 325 MG TABLET PO PRN (17:32)
--- NOTE | 2018-03-10 17:47 | Internal Med History&Physical ---
Date of Encounter: 03/11/18 Time of Encounter: 17:45 Internal Medicine - H&P: HPI Chief complaint: My hip needs removed Admitted From: Long-term Nursing Facility Plans for Post Hospital Care: Transfer Inp Rehab Fac History of present illness: Ms. 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 Patient is status post: 12/18/17 Extensive irrigation and debridement infected right hip Dr. Carlos 12/10/17-Right femur open reduction internal fixation Revision femur of right hip hemiarthroplasty Dr. 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 Jaeger for painful hardware 01/28/17 -s/p right subscapular valgus impacted femoral neck fractureIn situ percutaneous screw fixation of right femur on Dr. Jaeger for right subcapital valgus impacted femoral neck fracture During the lad admission in 11/2017, she had MRSA bacteremia and synovial fluid grew enterococcus and MRSA She was discharged to SNF 12/24/2017 with IV antibiotics for 6 weeks. She had presented to the emergency room 12/2017 for concerns of laceration and open wound of the same hip, was discharged without any intervention. She went to have follow-up with Dr. Carlos today, was recommended to present to the hospital for admission, due to continuous drainage from the right hip wound , after completion of IV antibiotics. She is admitted now for removal of infected hardware The patient is awake alert and able to make a conversation during evaluation. She reports she has been mostly bedbound in the halfway facility, she will occasionally get some temperature. She denied any recent fevers or chills , she denies chest pain, and she denies vomiting. She does have nausea. She denies diarrhea. She has no bedsores. She reports dry cough which is chronic, she believes it is due to dry mouth. She denies sick contacts at the long-term. The patient has no advance directives, but reports that she is full code. Past Med Surg Social Fam HX - Past Medical History Medical history: atrial fibrillation, dementia, GERD, hypertension Additional medical history: MRSA. Insomnia Psychiatric history: depression - Past Surgical History Surgical History: orthopedic, other Additional surgical history: right hip - Social History Smoking Status: Never smoker Smokeless Tobacco Status: No Alcohol use: none Drug use: none - Family History Brother Adopted: No Living Status: Hx Family Cancer: Yes Father Living Status: Hx Family Cardiac Disorders: Yes Mother Family Member Ethnicity: Non- Living Status: Hx Family Cardiac Disorders: Yes Hx Family Respiratory Disorders: No Hx Family Cancer: No Hx Family GI Disorders: No Hx Family Endocrine Disorder: Yes Hx Family Neuromuscular Disorders: No Hx Family Neurologic Disorders: No Hx Family HEENT Disorders: No Hx Family Autoimmune Disorders: No Internal Medicine - H&P: Meds Cholecalciferol (D-3) [Vitamin D] 2,000 unit PO DAILY 01/28/17 [History] Imipramine HCl [Tofranil] 50 mg PO BID 01/28/17 [History] Lisinopril/Hydrochlorothiazide [Zestoretic 20-25 mg Tablet] 1 tab PO BID [History] Metoprolol XL (24 HR) Succ [Toprol Xl] 50 mg PO DAILY 01/28/17 [History] Omeprazole [PriLOSEC] 20 mg PO DAILY 01/28/17 [History] Perphenazine [Trilafon] 8 mg PO HS 01/28/17 [History] Phytonadione [Vitamin K] 100 mcg PO DAILY 01/28/17 [History] Multivit/Ca/Min/Fe/FA [Thera M Plus] 1 tab PO DAILY tablet 11/13/17 [Rx] Ascorbic Acid [Vitamin C] 500 mg PO BIDWM tablet 12/24/17 [Rx] Ferrous Sulfate 325 mg PO BIDWM tablet 12/24/17 [Rx] Lactobacillus [Culturelle] 1 each PO BID cap.sprink 12/24/17 [Rx] Ondansetron [Zofran] 4 mg IVP Q6HR PRN vial 12/24/17 [Rx] Potassium Chloride 20 meq PO BID tab.er.prt 12/24/17 [Rx] Vancomycin HCl 1 gm IV DAILY #35 vial 12/24/17 [Rx] Vancomycin HCl 750 mg IV DAILY #35 vial 12/24/17 [Rx] rifAMPin [Rifadin] 300 mg PO BIDAC #70 capsule 12/24/17 [Rx] 3 Allergy/AdvReac Type Severity Reaction Status Date / Time aspirin AdvReac See Verified 12/09/17 14:01 Comments Penicillins AdvReac See Verified 12/09/17 14:01 Comments All Systems PM: A 10-system review of systems was performed and is negative for pertinent findings except as documented above in the HPI. - Constitutional Constitutional: no chills, no fever(s), no night sweats - EENT Eyes: no change in vision, no discharge, no pain, no photophobia Ears: no ear discharge, no ear pain, no tinnitus Nose, mouth and throat: no dysphagia, no nasal discharge, no neck pain, no sore throat - Cardiovascular Cardiovascular ROS IM: no chest pain, no diaphoresis, no dyspnea, no lightheadedness, no palpitations, no syncope - Respiratory Respiratory: no cough, no dyspnea, no wheezing, no excessive phlegm production - Gastrointestinal Gastrointestinal: no abdominal pain, no diarrhea, no hematemesis, no hematochezia, no melena, no nausea, no vomiting - Musculoskeletal Musculoskeletal ROS IM: as per HPI - Integumentary Integumentary IM: as per HPI - Neurological Neurological ROS: as per HPI - Hematologic/Lymphatic Hematologic/Lymphatic: no easy bruising - Constitutional Vitals: Temp Pulse Resp BP Pulse Ox 98.8 F 86 17 123/67 99 03/10/18 17:14 03/10/18 17:14 03/10/18 17:14 03/10/18 17:14 03/10/18 17:14 Gen.: Vitals noted. No acute distress. AAOx3 HEENT: PERRL/EOMI, oropharynx clear, Normo cephalic, atraumatic, dry oral mucosa Cardiac: RRR, no murmur, +S1/S2 Lungs: CTA bilaterally, no wheezes, rales or rhonchi, equal chest expansion Abdomen: soft, minimally tender to palpation in lower abdomen, BS noted, no guarding, no rebound. MSK: ROM intact, right lower extremity shorter and externally rotated. Wound dressings on right hip lateral region soaked with blood. Patient is unable to move that extremity due to combination of pain and deconditioning. Extremities: no BLE edema, non-tender calf, no cyanosis or clubbing Skin: Open wound on right hip region laterally, no other skin breaks noted at this time Neuro: A&Ox3, moves all extremities, no focal deficits Psych: Appropriate mood and behavior Internal Med - H&P Results - Labs CBC & Chem 7: 03/11/18 01:34 03/11/18 01:34 - Assessment and plan (1) History of MRSA infection Current Visit: Yes Status: Chronic Assessment and plan: Patient with history of MRSA bacteremia and MRSA septic arthritis as well as enterococcus septic arthritis. Was on IV vancomycin at long-term prior to presentation. 2 sets of blood cultures ordered today. Continue antibiotics Infectious disease evaluation (2) DVT prophylaxis Current Visit: Yes Status: Acute Assessment and plan: SQ heparin (3) Infection of right prosthetic hip joint Current Visit: Yes Status: Acute Assessment and plan: Persistent, despite aggressive antibiotic regimen For hardware removal Orthopedics consulted EKG stat obtained Patient is high risk for post-op cardiopumonary complications due to hx of Afib and LBBB as well as poor functional baseline Continue antibiotics till review by Infectious disease Follow blood cultures STAT labs including type and screen Qualifiers: Encounter type: initial encounter Qualified Code(s): T84.51XA - Infection and inflammatory reaction due to internal right hip prosthesis, initial encounter (4) Anemia Current Visit: Yes Status: Chronic Assessment and plan: Hx of chronic anemia, complicated by post-op anemia requiring blood transfusions in last admissions Type and screen ordered Qualifiers: Anemia type: other cause Other causes of anemia: chronic disease, other Qualified Code(s): D63.8 - Anemia in other chronic diseases classified elsewhere (5) Dementia Current Visit: Yes Status: Chronic Assessment and plan: No behavioural abnormalities Continue home meds Patient is high risk for delirium Qualifiers: Dementia type: Alzheimer's disease Alzheimer's disease onset: late-onset Dementia behavioral disturbance: without behavioral disturbance Qualified Code (s): G30.1 - Alzheimer's disease with late onset; F02.80 - Dementia in other diseases classified elsewhere without behavioral disturbance (6) History of atrial fibrillation Current Visit: Yes Status: Chronic Assessment and plan: Continue home meds (7) Hypertension Current Visit: Yes Status: Chronic Assessment and plan: Continue home meds Hod diuretics and ACEI IV hydralazine prn Qualifiers: Hypertension type: essential hypertension Qualified Code(s): I10 - Essential (primary) hypertension - Time Spent With Patient Total time spent is greater than 50% in coordination of care (as documented) at patient's floor/unit and/or counseling patient:
[2018-03-10 17:57] LABS: Basophils # 0.1 K/mcL (0.0-0.2); Basophils % 0.7 %; Eosinophils # 0.2 K/mcL (0.0-0.6); Eosinophils % 1.3 %; Hematocrit 23.8 % (35.3-44.9); Hemoglobin 8.1 g/dL (11.5-15.4); Immature Granulocytes % 0.6 % (0-4); Lymphocytes # 1.8 K/mcL (0.6-4.6); Lymphocytes % 16.1 %; Mean Corpuscular Hemoglobin 33.5 pg (28.0-33.3); Mean Corpuscular Volume 98.3 fL (83.0-100.0); Mean Platelet Volume 9.7 fL (9.4-12.4); Monocytes # 1.1 K/mcL (0.0-1.3); Monocytes % 9.6 %; Neutrophils # 8.1 K/mcL (1.6-8.9); Platelet Count 397 K/mcL (140-400); Red Blood Count 2.42 M/mcL (3.82-4.97); Red Cell Distribution Width 16.5 % (11.5-14.5); Segmented Neutrophils % 71.7 %
[2018-03-10 18:16] LABS: Alanine Aminotransferase 22 Units/L (7-52); Albumin 3.3 g/dL (3.5-5.7); Albumin/Globulin Ratio 0.8 (1.1-2.2); Alkaline Phosphatase 146 Units/L (34-104); Aspartate Amino Transferase 28 Units/L (13-39); BUN/Creatinine Ratio 26 (6-26); Bilirubin,Total 0.7 mg/dL (0.3-1.0); Blood Urea Nitrogen 19 mg/dL (8-23); Calcium 9.6 mg/dL (8.6-10.3); Carbon Dioxide 25 mEq/L (23-29); Chloride 89 mEq/L (98-107); Globulin 4.4 g/dL (2.4-3.5); Glucose 154 mg/dL (70-105); Osmolality,Calculated 257 (280-300); Potassium 4.4 mEq/L (3.5-5.1); Sodium 121 mEq/L (136-145); Total Protein 7.7 g/dL (6.4-8.9); eGFR For Non-African Americans > 60 (> 60)
[2018-03-10] MEDS: *HR* OxyCODONE Immed Rel 5 MG TABLET PO PRN (19:51)
[2018-03-10] MEDS: Lactobacillus 1 EACH CAP.SPRINK PO SCH (19:52)
[2018-03-10] MEDS ORDERED: Ondansetron ODT 4 MG TAB.RAPDIS SL PRN (20:04)
[2018-03-11 02:34] LABS: Basophils # 0.1 K/mcL (0.0-0.2); Basophils % 0.6 %; Eosinophils # 0.2 K/mcL (0.0-0.6); Eosinophils % 2.9 %; Hematocrit 21.3 % (35.3-44.9); Hemoglobin 7.2 g/dL (11.5-15.4); Immature Granulocytes % 0.7 % (0-4); Lymphocytes % 24.6 %; Mean Corpuscular HGB Conc 33.8 g/dL (31.6-35.5); Mean Corpuscular Volume 97.7 fL (83.0-100.0); Monocytes # 1.1 K/mcL (0.0-1.3); Monocytes % 12.9 %; Neutrophils # 4.8 K/mcL (1.6-8.9); Platelet Count 363 K/mcL (140-400); Red Blood Count 2.18 M/mcL (3.82-4.97); Segmented Neutrophils % 58.3 %
[2018-03-11 04:59] LABS: Alanine Aminotransferase 21 Units/L (7-52); Albumin 2.9 g/dL (3.5-5.7); Albumin/Globulin Ratio 0.8 (1.1-2.2); Alkaline Phosphatase 131 Units/L (34-104); Aspartate Amino Transferase 32 Units/L (13-39); BUN/Creatinine Ratio 26 (6-26); Bilirubin,Total 0.6 mg/dL (0.3-1.0); Blood Urea Nitrogen 18 mg/dL (8-23); Calcium 9.2 mg/dL (8.6-10.3); Carbon Dioxide 20 mEq/L (23-29); Chloride 94 mEq/L (98-107); Globulin 3.6 g/dL (2.4-3.5); Glucose 121 mg/dL (70-105); Osmolality,Calculated 263 (280-300); Potassium 4.8 mEq/L (3.5-5.1); Sodium 125 mEq/L (136-145); Total Protein 6.5 g/dL (6.4-8.9); eGFR For Non-African Americans > 60 (> 60)
[2018-03-11] MEDS: *HR* Enoxaparin 40 MG/0.4 ML SYRINGE SQ SCH (05:17)
[2018-03-11] MEDS ORDERED: Furosemide 20 MG/2 ML VIAL IVP ONE (06:47)
[2018-03-11] MEDS ORDERED: Furosemide 20 MG/2 ML VIAL IVP PRN (06:47)
--- NOTE | 2018-03-11 06:48 | Orthopedics Progress Note ---
Date of Encounter: 03/11/18 Time of Encounter: 06:47 Subjective Interval history: Patient admitted yesterday from [facility] Hospital service due to significant increased drainage of right hip. Patient's lab work significantly abnormal with significant hyponatremia and significant anemia. Patient will require removal of hardware and irrigation debridement of right hip once optimized. This was discussed with the patient and her son at length yesterday. We reviewed the risks and benefits as well as recovery. All questions were answered. The patient agreed to this treatment plan and appeared to understand the plan is reviewed. Objective Vital signs: Vital Signs Temp Pulse Resp BP Pulse Ox 03/11/18 02:52 98.2 F 68 16 113/66 98 03/10/18 23:05 98.6 F 76 18 125/65 100 03/10/18 18:36 98.0 F 94 16 106/61 100 03/10/18 17:14 98.8 F 86 17 123/67 99 Intake and Output 03/10/18 03/10/18 03/11/18 15:59 23:59 07:59 Output Total 400 / 400 Balance -400 / -400 Output: Catheter 400 / 400 Other: # Urine Diapers 1 Weight 69.1 kg Blood Glucose* 163 - Labs CBC & BMP: 03/11/18 01:34 03/11/18 01:34 Labs: Abnormal lab results RBC 2.18 M/mcL (3.82-4.97) L 03/11/18 01:34 Hgb 7.2 g/dL (11.5-15.4) L 03/11/18 01:34 Hct 21.3 % (35.3-44.9) L 03/11/18 01:34 RDW 17.0 % (11.5-14.5) H 03/11/18 01:34 Sodium 125 mEq/L (136-145) L 03/11/18 01:34 Chloride 94 mEq/L (98-107) L 03/11/18 01:34 Carbon Dioxide 20 mEq/L (23-29) L 03/11/18 01:34 Glucose 121 mg/dL (70-105) H 03/11/18 01:34 Calculated Osmolality 263 (280-300) L 03/11/18 01:34 Alkaline Phosphatase 131 Units/L (34-104) H 03/11/18 01:34 Albumin 2.9 g/dL (3.5-5.7) L 03/11/18 01:34 Globulin 3.6 g/dL (2.4-3.5) H 03/11/18 01:34 Albumin/Globulin Ratio 0.8 (1.1-2.2) L 03/11/18 01:34 Consult Discharge Plan - Plan Referrals: Rosemary Suarez MD [Primary Care Provider] -
[2018-03-11] MEDS: Metoprolol XL (24 HR) Succ 50 MG TAB.ER.24H PO SCH (08:24)
[2018-03-11] MEDS: Lactobacillus 1 EACH CAP.SPRINK PO SCH ×2 (08:24→21:35)
--- NOTE | 2018-03-11 09:04 | Internal Med Progress Note ---
Hospitalist Progress Note - Encounter Date of Encounter: 03/11/18 Time of Encounter: 09:01 - Subjective Interval History: Seen and evaluated at the bedside 82 F with multiple surgical procdures on the R hip who is admitted and being managed for infected R hip prosthesis, meant for hardware removal and irrigation per ortho She complained of a poor appetite his a.m, she is otherwise in stable condition Anemia worsening, 2 units RBCS ordered Labs also show hyponatremia, likley related to use of imipramine, will send hyponatremia work up and start IVF hydration Infectious disease team has also been consulted - Exam Vitals: Temp Pulse Resp BP Pulse Ox 97.9 F 78 16 90/54 99 03/11/18 08:32 03/11/18 08:32 03/11/18 08:32 03/11/18 08:32 03/11/18 08:32 Exam: Gen.: Vitals noted. No acute distress. AAOx3 HEENT: PERRL/EOMI, oropharynx clear, Normo cephalic, atraumatic, dry oral mucosa Neck anterior neck fullness Cardiac: RRR, no murmur, +S1/S2 Lungs: CTA bilaterally, no wheezes, rales or rhonchi, equal chest expansion Abdomen: soft, minimally tender to palpation in lower abdomen, BS noted, no guarding, no rebound. MSK: ROM intact, right lower extremity shorter and externally rotated. Wound dressings on right hip lateral region soaked with blood. Patient is unable to move that extremity due to combination of pain and deconditioning. 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 Was on IV vancomycin at assisted prior to presentation. 2 sets of blood cultures prelim negative Continue antibiotics Infectious disease evaluation (2) DVT prophylaxis Current Visit: Yes Status: Acute Assessment and Plan: SQ heparin (3) Infection of right prosthetic hip joint Current Visit: Yes Status: Acute Assessment and Plan: Persistent, despite aggressive antibiotic regimen For hardware removal Orthopedics consulted, review noted EKG reviewed-LVH, J point elevation, no significant St segment changes Patient is high risk for post-op cardiopumonary complications due to hx of Afib and LBBB as well as poor functional baseline Continue antibiotics till review by Infectious disease Follow blood cultures (4) Anemia Current Visit: Yes Status: Chronic Assessment and Plan: Hx of chronic anemia, complicated by post-op anemia requiring blood transfusions in last admissions HB today 7.2 Ordered 2 units RBCS Rpt Hb/Hct p.m Continue to monitor (5) Dementia Current Visit: Yes Status: Chronic Assessment and Plan: No behavioural abnormalities Continue home meds Patient is high risk for delirium (6) History of atrial fibrillation Current Visit: Yes Status: Chronic Assessment and Plan: Continue home meds Not on anticoagulation (7) Hypertension Current Visit: Yes Status: Chronic Assessment and Plan: Continue home meds Hod diuretics and ACEI IV hydralazine prn (8) Hyponatremia Current Visit: Yes Status: Acute Assessment and Plan: Hypoosmolar hyponatremia Multifacorial: 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, however, patient also clinically dehydrated Will give gentle hydration Check TSH, and urine osmolality Monitor Na q6-q8h Patient is asymptomatic - Time Spent with Patient Total time spent is greater than 50% in coordination of care (as documented) at patient's floor/unit and/or counseling patient: Plan of Care Discussed with: patient Internal Medicine: Result - Labs CBC & Chem 7: 03/11/18 01:34 03/11/18 01:34 Labs: Short CBC 03/10/18 03/11/18 Range/Units 17:43 01:34 WBC 11.3 H 8.2 (4.3-11.1) K/mcL Hgb 8.1 L 7.2 L (11.5-15.4) g/dL Hct 23.8 L 21.3 L (35.3-44.9) % Plt Count 397 363 (140-400) K/mcL Neutrophils # 8.1 4.8 (1.6-8.9) K/mcL BMP 03/10/18 03/11/18 17:43 01:34 Sodium 121 L 125 L Potassium 4.4 4.8 Chloride 89 L 94 L Carbon Dioxide 25 20 L BUN 19 18 Creatinine 0.73 0.69 Glucose 154 H 121 H Calcium 9.6 9.2 Liver Function 03/10/18 03/11/18 Range/Units 17:43 01:34 Total Bilirubin 0.7 0.6 (0.3-1.0) mg/dL AST 28 32 (13-39) Units/L ALT 22 21 (7-52) Units/L Alkaline Phosphatase 146 H 131 H (34-104) Units/L Albumin 3.3 L 2.9 L (3.5-5.7) g/dL - Impressions Impressions Hip X-Ray 03/11/18 06:48 IMPRESSION: 1. Unchanged superior dislocation of the acetabular component of a right total hip prosthesis with persistent proximal migration of the prosthesis and right femur. 2. Unchanged comminuted, mildly displaced fracture of the proximal right femoral diaphysis. 3. Unchanged nondisplaced fracture of the left inferior pubic ramus. 4. Bony demineralization. D/ / Jorge Barnett MD / Jorge Barnett MD Interpreting Provider: Jorge Barnett MD Consult Discharge Plan - Plan Referrals: Rosemary Suarez MD [Primary Care Provider] - (3) Infection of right prosthetic hip joint Qualifiers: Encounter type: initial encounter Qualified Code(s): T84.51XA - Infection and inflammatory reaction due to internal right hip prosthesis, initial encounter (4) Anemia Qualifiers: Anemia type: other cause Other causes of anemia: chronic disease, other Qualified Code(s): D63.8 - Anemia in other chronic diseases classified elsewhere (5) Dementia Qualifiers: Dementia type: Alzheimer's disease Alzheimer's disease onset: late-onset Dementia behavioral disturbance: without behavioral disturbance Qualified Code( s): G30.1 - Alzheimer's disease with late onset; F02.80 - Dementia in other diseases classified elsewhere without behavioral disturbance (7) Hypertension Qualifiers: Hypertension type: essential hypertension Qualified Code(s): I10 - Essential (primary) hypertension
[2018-03-11] MEDS ORDERED: 0.9 % Sodium Chloride 500 ML ONE ×2 (10:27→16:20)
[2018-03-11] MEDS: *HR* HYDROcodone/Acet 5/325 mg TABLET PO PRN (10:33)
[2018-03-11] MEDS: 0.9 % Sodium Chloride 1,000 ML IVC SCH (10:33)
--- NOTE | 2018-03-11 11:36 | Infectious Disease Consult ---
Date of Encounter: 03/11/18 Time of Encounter: 11:34 Assessment and Plan (1) Nonhealing surgical wound Status: Acute Assessment and plan: Location: Right hip Etiology: likely multifactorial: poor nutritional status + possible underlying infection. Recommend wound care to evaluate once hardware is removed. Nutritional consult may be helpful as well. Qualifiers: Encounter type: initial encounter Qualified Code(s): T81.89XA - Other complications of procedures, not elsewhere classified, initial encounter (2) Infection of right prosthetic hip joint Status: Acute Assessment and plan: Location: Right hip. Causative organism: MRSA and Enterococcus. Likely secondary to previous surgical procedures. CT of the right hip showed some soft tissue air concerning for post-op changes vs. infectious etiology. Status post CT-guided joint aspiration that yielded 18ml of pus. Cell count showed >100,000 TNP with 88% segmented neutrophils. Culture was positive for MRSA and Enterococcus. Ortho consulted and following. Status post extensive debridement with retention of hardware 12/18/17. Cultures were positive for MRSA. Treated with 8 weeks of IV Vanc and Rifampin and was transitioned to PO doxycycline January 2018 --> switched to Bactrim per the ortho team. Clinically, the hip does not appear acutely infected. There is obvious wound dehiscence, but no surrounding erythema, warmth, or purulent drainage. The area of dehiscence is very deep and tunnels, so I am concerned that there is tunneling of the wound to the hardware. Check ESR and CRP. Continue Vancomycin IV. Pharmacy to dose. Goal trough ~15. Will discuss plan with the ortho team: permanent removal of hardware vs. two- stage exchange vs. other. Duration of treatment depends on the clinical picture. Monitor renal function and for drug toxicity and dose-adjust antibiotics. visitor services information assistant to assist with discharge planning. Qualifiers: Encounter type: initial encounter Qualified Code(s): T84.51XA - Infection and inflammatory reaction due to internal right hip prosthesis, initial encounter (3) Hyponatremia Status: Acute Assessment and plan: Etiology unclear. Further workup and management per the primary team. (4) Anemia Status: Chronic Assessment and plan: Hgb down to 7.2 today. Oozing noted from the right hip wound, but no xavier bleeding. Continue to trend. Transfusion parameters per the primary team. Qualifiers: Anemia type: other cause Other causes of anemia: chronic disease, other Qualified Code(s): D63.8 - Anemia in other chronic diseases classified elsewhere (5) Dementia Status: Chronic Qualifiers: Dementia type: Alzheimer's disease Alzheimer's disease onset: late-onset Dementia behavioral disturbance: without behavioral disturbance Qualified Code (s): G30.1 - Alzheimer's disease with late onset; F02.80 - Dementia in other diseases classified elsewhere without behavioral disturbance (6) History of atrial fibrillation Status: Chronic (7) History of MRSA infection Status: Chronic (8) History of right hip hemiarthroplasty Status: Acute Assessment and plan: Status post right hip hemiarthroplasty 11/09/[address] Carlos. (9) Hypertension Status: Chronic Qualifiers: Hypertension type: essential hypertension Qualified Code(s): I10 - Essential (primary) hypertension (10) Status post-operative repair of closed fracture of right hip Status: Acute Assessment and plan: Status post ORIF right femur revision 12/10/[address] Carlos. Intra-op cultures negative. (11) Hip dislocation, right Status: Acute Assessment and plan: Etiology unclear, but has been known since January 13. Previously, surgery/reduction deferred per ortho due to patient too high risk. X-ray shows known dislocation. Await recommendations from ortho. Qualifiers: Encounter type: subsequent encounter Qualified Code(s): S73.004D - Unspecified dislocation of right hip, subsequent encounter Infectious Disease HPI - Data of Consult Patient: known to practice within the last 3 years Consult date: 03/11/18 Requesting Physician: Dyllan Kimble MD Primary Care Provider: Rosemary Suarez MD - Consult Narrative Reason for consult: Right hip PJI History of present illness: Ms. Garcia is a 82 year old female with a past medical history of HTN, GERD, depression, status post right subscapular valgus impacted femoral neck fracture with repair in January 2017, satus post removal of the hardware in September of 2017 due to painful hardware (cultures negative), satus post right femoral neck nonunon fracture with right hemiarthroplasty in October 2017, status post right femur ORIF revision of the right hip hemiarthroplasty 12/10/17, status post extensive irrigation and debridement of hte infected right hip December 18, 2017. The patient was admitted to the hospital 03/09/18 for right hip infection. We are consulted 03/11/18 for further antibiotic recommendations for right hip infection. Briefly, the patient's an 82-year-old female with a past medical history as stated above. The patient is well-known to the infectious disease service as we were consult on her case back in November. At that time, the patient was taken to the operating room on December 10 and underwent a right femur ORIF revision of the femur of the right hip hemiarthroplasty. Intraoperative cultures were negative and she did well postop other than some expected reactive leukocytosis. However, on December 15, she had a marked increase in her white blood cell count. Blood cultures were obtained 2 sets and came back +1 out of 2 sets for MRSA area there was concern that the hip might be infected so she had a CT of the hip that showed multiple foci of soft tissue air concerning for postsurgical finding versus infection. She underwent aspiration of the right hip by interventional radiology and 10 and also pus was aspirated. The synovial fluid was sent for cell count that showed greater than 100,000 total nucleated cells and 80% segmented neutrophils. The fluid was sent for culture came back positive for MRSA and enterococcus. He was started on IV vancomycin and Rocephin empirically with D escalated to IV vancomycin with finalization of the cultures. On December 18, she was taken back to the operating room and underwent extensive irrigation and debridement of the infected right hip by Dr. Carlos. Intraoperative cultures again came back positive for MRSA. She also had a urine culture that grew out pansensitive Escherichia coli and she received a seven-day course of IV Rocephin for that. The patient was discharged to a local extended care facility to complete a six-week course of IV vancomycin with by mouth rifampin. About 4 weeks into her treatment, the patient began to complain of severe right hip pain. X-rays completed January 13 revealed dislocation of the hip. Ortho decided to defer reduction due to her multiple comorbidities and delayed wound healing. She also had multiple issues with wound dehiscence and delayed wound healing. Her inflammatory markers remain elevated, so we opted to continue her IV antibiotics for 8 weeks. I discussed this case at length with orthopedics and we decided to transition her to by mouth antibiotics to see how she did. A couple of weeks ago, the patient was noted to have continued drainage and redness of the incision. Her by mouth antibiotics were switched to Bactrim. She was seen by orthopedics on Friday and was advised to come here for further evaluation due to wound dehisced since and drainage. Upon arrival, the patient was afebrile and hemodynamically stable. Her white blood cell count was minimally elevated at 11.3 thousand. Kidney function is normal. Blood cultures were obtained 2 sets. She did have a right hip x-ray that showed an unchanged superior dislocation of the acetabular component of a right total hip prosthesis persistent proximal migration of the prosthesis and right femur, unchanged comminuted mildly displaced fracture of the proximal right femoral diaphysis, and unchanged nondisplaced fracture of the left inferior pubic ramus. Orthopedics was consult and plans to take the patient to the operating room tomorrow for removal of the hardware. She was started on IV vancomycin upon arrival. We have been asked to evaluate and make further recommendations. During my exam today, the patient endorses a history as stated above. She states that she has not felt very well for some time now. She denies any fevers or rigors, but states she feels cold all the time. She denies any headache or neck pain. She denies any chest pain, shortness of breath, or cough. She reports persistent nausea, but no vomiting. She reports poor appetite. She denies abdominal pain or urinary complaints. She denies any constipation or diarrhea and states her last bowel movement was 2 days ago. She does complain of pain in the right hip, worse with movement. She has been unable to bear weight due to the dislocation and has been bedbound for several weeks now. She reports that on Friday the wound opened up and drained a large amount of bloody drainage. She denies foul odor or increased redness. She denies any oral thrush or new skin rashes. CC: Dyllan Kimble MD Past Med Surg Social Fam HX - Past Medical History Attestation: Yes The following information was validated with the patient. Source: patient, old records reviewed, nursing notes reviewed Medical history: atrial fibrillation, dementia, GERD, hypertension Additional medical history: MRSA. Insomnia. Right hip prosthetic joint infection status post 8 weeks of IV vancomycin with rifampin Psychiatric history: depression - Past Surgical History Surgical History: orthopedic, other Additional surgical history: right hip - Social History Smoking Status: Never smoker Smokeless Tobacco Status: No Alcohol use: none Drug use: none Occupational status: retired Current living situation: [facility] Activity Level: Bed bound Recent Out of Country Travel Within the Last 8 Weeks: No Exposure or Possible Exposure to Illness During Travel: No - Family History Brother Adopted: No Living Status: Hx Family Cancer: Yes Father Living Status: Hx Family Cardiac Disorders: Yes Mother Family Member Ethnicity: Non- Living Status: Hx Family Cardiac Disorders: Yes Hx Family Respiratory Disorders: No Hx Family Cancer: No Hx Family GI Disorders: No Hx Family Endocrine Disorder: Yes Hx Family Neuromuscular Disorders: No Hx Family Neurologic Disorders: No Hx Family HEENT Disorders: No Hx Family Autoimmune Disorders: No Infectious Disease-CN:Meds Amiodarone [Cordarone] 200 mg PO DAILY 03/11/18 [History] Apixaban [Eliquis] 5 mg PO BID 03/11/18 [History] Ascorbic Acid [Vitamin C with Winnie Hips] 500 mg PO DAILY 03/11/18 [History] Bisacodyl [Dulcolax] 10 mg RC DAILY PRN 03/11/18 [History] Cholecalciferol (D-3) [Vitamin D] 2,000 unit PO DAILY 03/11/18 [History] Docusate Sodium [Dok] 100 mg PO BID 03/11/18 [History] Doxycycline Hyclate [Vibramycin] 100 mg PO BID 03/11/18 [History] Ferrous Sulfate [Iron] 325 mg PO DAILY 03/11/18 [History] Imipramine HCl [Tofranil] 50 mg PO BID 03/11/18 [History] Levothyroxine [Synthroid] 50 mcg PO DAILY 03/11/18 [History] Lisinopril [Zestril] 5 mg PO DAILY 03/11/18 [History] Metoprolol Succinate [Toprol Xl] 50 mg PO DAILY 03/11/18 [History] Omeprazole [PriLOSEC] 40 mg PO DAILY 03/11/18 [History] Oxycodone HCl/Acetaminophen [Percocet 5-325 mg Tablet] 1 tab PO Q6H PRN [History] Perphenazine [Trilafon] 8 mg PO DAILY 03/11/18 [History] Phytonadione [Vitamin K] 100 mcg PO DAILY 03/11/18 [History] Polyethylene Glycol 3350 [MiraLAX Powder Bulk 17.9 Oz] 1 scoop PO DAILY 08/15/ 18 [History] Potassium Chloride [K-Tab ER] 20 meq PO DAILY 03/11/18 [History] Rifampin [Rifadin] 300 mg PO BID 03/11/18 [History] 3 Allergy/AdvReac Type Severity Reaction Status Date / Time aspirin AdvReac See Verified 12/09/17 14:01 Comments Penicillins AdvReac See Verified 12/09/17 14:01 Comments All systems: reviewed and no additional remarkable complaints except as stated Exam - Constitutional Vitals: Temp Pulse Resp BP Pulse Ox 97.9 F 78 16 90/54 99 03/11/18 08:32 03/11/18 08:32 03/11/18 08:32 03/11/18 08:32 03/11/18 08:32 General appearance: average body habitus, cooperative, no acute distress - Head Head exam: Present: atraumatic, normal inspection, normocephalic - Eye Eye exam: Present: EOMI, normal appearance, PERRL Pupils: Present: normal accommodation - ENT ENT exam: Present: mucous membranes moist Additional comments: Very poor dentition noted. - Neck Neck exam: Present: normal inspection - Respiratory Respiratory exam: Present: tachypnea. Absent: rales, respiratory distress, rhonchi, wheezes - Cardiovascular Cardiovascular exam: Present: RRR, +S1, +S2 - GI/Abdominal GI/Abdominal exam: Present: normal bowel sounds, soft. Absent: distended, tenderness Additional comments: Dai catheter noted to be draining clear yellow urine. - Extremities Exam Extremities exam: Present: pedal edema (Trace, right lower extremity), tenderness (Right hip). Absent: normal inspection (Shortening and external rotation of the right lower extremity noted.) Additional comments: Right hip incision with small area of wound dehiscence noted to the medial aspect of the incision with 100% since loss in the wound bed. 1 inch area of wound dehiscence noted at the superior pole of the surgical incision. Large patches noted that his blood soaked. No active drainage noted. No surrounding erythema. Tenderness noted with palpation. Range of motion not assessed due to known hip dislocation. - Neurological Exam Neurological exam: Present: alert, oriented X3, no focal deficits - Psychiatric Psychiatric exam: Present: normal affect, normal mood - Skin Skin exam: Present: dry, intact, normal color, warm Infectious Disease CN: Results - Labs CBC & Chem 7: 03/12/18 07:00 03/12/18 04:59 Cultures: Cultures 03/10/18 17:43 Blood Culture - Preliminary Peripheral Venipuncture Culture is incubating and being continuously monitored for growth. Final report to follow. 03/10/18 17:43 Blood Culture - Preliminary Peripheral Venipuncture Culture is incubating and being continuously monitored for growth. Final report to follow. Consult Discharge Plan - Plan Referrals: Rosemary Suarez MD [Primary Care Provider] - - Attending Attestation I examined this patient and my medical decision-making was reviewed with the Resident Physician. I agree with the documented findings, disposition and treatment plan as described except to the extent set forth below. This is an addendum to original report dictated by Brittany Fernandez CNP. Please refer to Brittany's note for full details. Patient is an 82-year-old woman who had multiple complications in the right hip starting in January 2017 when she had femoral neck fracture and repair. In September 2017 she had painful hardware and the arthroplasty was removed. Cultures were sent at that time and were negative. Patient had another right femoral neck nonunion fracture in October 2017 requiring reduction internal fixation. Patient had revision of the ORIF of the right hip hemiarthroplasty on 12/10/2017. Patient had aggressive irrigation and debridement of the right hip on 2017 but no hardware was removed. Patient had this wound with that was never healing with some wound dehiscence. [facility]. She was given 8 weeks worth of IV vancomycin. Patient continued to have issues and came in for pain and swelling and erythema in her right hip. Assessment and plan: Prosthetic joint infection of the right hip causative organism cultures are pending but history of MRSA and enterococcus. At this point will continue vancomycin. We will talk to orthopedics to see what his surgically possible in an 82-year-old woman with Multiple multiple surgeries for the same. Not sure if removing hardware is even an option unless patient becomes immobile or have a permanent spacer. Monitor labs and for drug toxicity. Overallis guarded.
--- NOTE | 2018-03-11 11:48 | Electrocardiograph Report ---
[address] [place] [address] Test Date: 2018-03-10 Pat Name: Palmira Garcia Department: 114 Room: [facility] Gender: F Manager Of Data: : 1935 Requested By: Dyllan Kimble Order Number: [id number] Reading MD: Xochitl Wright Measurements Intervals [place] Rate: 92 P: 71 FL: 154 QRS: 7 QRSD: 130 T: 118 QT: 407 QTc: 457 Interpretive Statements SINUS RHYTHM WITH SINUS ARRHYTHMIA LEFT VENTRICULAR HYPERTROPHY AND ST-T CHANGE INFERIOR MYOCARDIAL INFARCTION, OF INDETERMINATE AGE POSSIBLY RECENT Electronically Signed On 03-11-2018 11:47:02 EDT by Xochitl Wright
[2018-03-11 17:08] LABS: BUN/Creatinine Ratio 22 (6-26); Blood Urea Nitrogen 17 mg/dL (8-23); Calcium 9.2 mg/dL (8.6-10.3); Carbon Dioxide 29 mEq/L (23-29); Chloride 94 mEq/L (98-107); Glucose 123 mg/dL (70-105); Osmolality,Calculated 263 (280-300); Potassium 4.4 mEq/L (3.5-5.1); Sodium 125 mEq/L (136-145); eGFR For Non-African Americans > 60 (> 60)
--- NOTE | 2018-03-11 19:00 | Anesthesia Evaluation PreOp ---
Date of Encounter: 03/11/18 Time of Encounter: 18:58 - Past History Planned Operation: Removal of Right Hip Replacement Cardiac History: Denies any Significant Hx (I and D Rt Hip Cardiac History: HTN , Arrhythmia (Chronic AFib), Other (Anemia Chronic) Pulmonary History: Denies Any Significant HX QUALITY IMPROVEMENT ANALYST History: Other (Dementia) Other Medical History: Other ( Hyponatremia chronic) Anesthesia History: No Prior Anesthetic Complications : No Alcohol Use: none Drug use: none), HTN, Arrhythmia (Afib), Other ( Chronic anemia) Pulmonary History: Denies Any Significant HX QUALITY IMPROVEMENT ANALYST History: Other (Dementia) Other Medical History: Other (Chronic Hyponatremia, transfused wit 2 units PBC) Anesthesia History: No Prior Anesthetic Complications, Past Anesthesia ( Multiple hip sx) : No Alcohol Use: none Drug use: none Medications and Allergies Amiodarone [Cordarone] 200 mg PO DAILY 03/11/18 [History] Apixaban [Eliquis] 5 mg PO BID 03/11/18 [History] Ascorbic Acid [Vitamin C with Winnie Hips] 500 mg PO DAILY 03/11/18 [History] Bisacodyl [Dulcolax] 10 mg RC DAILY PRN 03/11/18 [History] Cholecalciferol (D-3) [Vitamin D] 2,000 unit PO DAILY 03/11/18 [History] Docusate Sodium [Dok] 100 mg PO BID 03/11/18 [History] Doxycycline Hyclate [Vibramycin] 100 mg PO BID 03/11/18 [History] Ferrous Sulfate [Iron] 325 mg PO DAILY 03/11/18 [History] Imipramine HCl [Tofranil] 50 mg PO BID 03/11/18 [History] Levothyroxine [Synthroid] 50 mcg PO DAILY 03/11/18 [History] Lisinopril [Zestril] 5 mg PO DAILY 03/11/18 [History] Metoprolol Succinate [Toprol Xl] 50 mg PO DAILY 03/11/18 [History] Omeprazole [PriLOSEC] 40 mg PO DAILY 03/11/18 [History] Oxycodone HCl/Acetaminophen [Percocet 5-325 mg Tablet] 1 tab PO Q6H PRN [History] Perphenazine [Trilafon] 8 mg PO DAILY 03/11/18 [History] Phytonadione [Vitamin K] 100 mcg PO DAILY 03/11/18 [History] Polyethylene Glycol 3350 [MiraLAX Powder Bulk 17.9 Oz] 1 scoop PO DAILY [History] Potassium Chloride [K-Tab ER] 20 meq PO DAILY 03/11/18 [History] Rifampin [Rifadin] 300 mg PO BID 03/11/18 [History] 3 Allergy/AdvReac Type Severity Reaction Status Date / Time aspirin AdvReac See Verified 12/09/17 14:01 Comments Penicillins AdvReac See Verified 12/09/17 14:01 Comments - Meds/Allergy Pre-op Review Medications Reviewed: Yes Allergies Reviewed: Yes Beta Blockers on Current Med List: Yes If Beta Blockers taken, Date/Time (Last Dose taken): 08:24 03/11/18 check for morning dose Anesthesia Results - Labs 03/11/18 01:34 03/11/18 16:00 Echocardiogram Name: Palmira Garcia Date of Study: 12/19/2017 EV/EV echocardiogram Impressions: LVEF 60%. Indeterminate diastolic function. Normal right ventricular structure and function. Mild-moderate mitral regurgitation. Mild tricuspid regurgitation. Mild pulmonary hypertension. - Imaging EKG: report reviewed (SINUS RHYTHM WITH SINUS ARRHYTHMIA LEFT VENTRICULAR HYPERTROPHY AND ST-T CHANGE INFERIOR MYOCARDIAL INFARCTION, OF INDETERMINATE AGE POSSIBLY RECENT) Anesthesia Exam Vital Signs/O2 Sat, Most Current Temp Pulse Resp BP Pulse Ox 98.1 F 80 16 122/63 100 03/11/18 19:00 03/11/18 19:00 03/11/18 19:00 03/11/18 19:00 03/11/18 19:00 - HEENT Pupil (Motor): Pupils equal, EOMI Mallampati: II Teeth: Poor dentition Oral Opening: Greater than 3 - QUALITY IMPROVEMENT ANALYST LOC: Confused QUALITY IMPROVEMENT ANALYST Motor: Normal RUE, Normal LUE, Normal RLE, Normal LLE, Normal Face QUALITY IMPROVEMENT ANALYST Sensory: Normal: RUE, LUE, RLE, LLE, Face - Cardiac Rhythm: Regular Murmur: None JVD: No Carotid Bruit: No - Pulmonary Breath Sounds: bilateral Clear Respiratory Effort: Symmetrical Anesthesia Assess/Plan ASA Score: 3 Modified Dixie Scale for Level of Consciousness: Cooperative, oriented, and tranquil (Dementia) Anesthetic Plan: General Autologous Blood: Yes Monitoring Plan: Standard Monitors Recovery Plan: PACU
[2018-03-12] MEDS: *HR* OxyCODONE Immed Rel 5 MG TABLET PO PRN ×2 (01:29→19:53)
[2018-03-12] MEDS: *HR* Enoxaparin 40 MG/0.4 ML SYRINGE SQ SCH (04:46)
[2018-03-12 05:48] LABS: Thyroid Stimulating Hormone 25.695 mcIU/mL (0.340-5.600)
[2018-03-12 07:19] LABS: Hematocrit 29.6 % (35.3-44.9)
[2018-03-12 07:24] LABS: Hemoglobin 10.1 g/dL (11.5-15.4)
--- NOTE | 2018-03-12 07:50 | Orthopedics Progress Note ---
Date of Encounter: 03/12/18 Time of Encounter: 07:49 Subjective Interval history: Patient with infected right hip. Hematocrit 29. Plan for surgery removal of hardware today. We reviewed the risks and benefits as well as recovery. All questions were answered. The patient agreed to this treatment plan and appeared to understand the plan is reviewed. Objective Vital signs: Vital Signs Temp Pulse Resp BP Pulse Ox 03/12/18 04:22 98.1 F 77 16 150/71 100 03/11/18 23:20 97.9 F 75 16 126/68 100 03/11/18 19:00 98.1 F 80 16 122/63 100 03/11/18 18:53 98.7 F 74 16 117/67 100 03/11/18 16:52 98.2 F 74 16 119/66 100 03/11/18 16:37 97.8 F 74 16 120/69 100 03/11/18 14:32 98.1 F 74 16 128/70 100 03/11/18 11:57 97.7 F 67 20 115/55 100 03/11/18 11:42 97.7 F 68 20 122/66 100 03/11/18 08:32 97.9 F 78 16 90/54 99 Intake and Output 03/11/18 03/11/18 03/12/18 15:59 23:59 07:59 Intake Total 1090 / 1090 450 / 450 Output Total 400 / 400 700 / 700 Balance 1090 / 1090 50 / 50 -700 / -700 Intake: IV Fluids 500 / 500 Vancocin 1,000 MG In 0.9 % 500 / 500 Sodium Chloride 250 ML @ 167 mls/hr IVPB Q12H [facility] Rx#: [id number] Oral 240 / 240 100 / 100 Blood Product 350 / 350 350 / 350 Rbcs Leuko Poor As-1 Unit 350 / 350 [id number] Rbcs Leuko Poor As-1 Unit 350 / 350 [id number] Output: Catheter 400 / 400 700 / 700 Urethral (Dai) 400 / 400 Other: Meal Lunch Percent of Meal Consumed 25% Blood Glucose* 114 219 - Labs CBC & BMP: 03/12/18 07:00 03/11/18 16:00 Labs: Abnormal lab results RBC 2.18 M/mcL (3.82-4.97) L 03/11/18 01:34 Hgb 10.1 g/dL (11.5-15.4) L D 03/12/18 07:00 Hct 29.6 % (35.3-44.9) L 03/12/18 07:00 RDW 17.0 % (11.5-14.5) H 03/11/18 01:34 Sodium 125 mEq/L (136-145) L 03/11/18 16:00 Chloride 94 mEq/L (98-107) L 03/11/18 16:00 Glucose 123 mg/dL (70-105) H 03/11/18 16:00 POC Glucose 219 mg/dL (70-99) H 03/11/18 19:09 Calculated Osmolality 263 (280-300) L 03/11/18 16:00 Alkaline Phosphatase 131 Units/L (34-104) H 03/11/18 01:34 Albumin 2.9 g/dL (3.5-5.7) L 03/11/18 01:34 Globulin 3.6 g/dL (2.4-3.5) H 03/11/18 01:34 Albumin/Globulin Ratio 0.8 (1.1-2.2) L 03/11/18 01:34 TSH 25.695 mcIU/mL (0.340-5.600) H 03/12/18 04:59 Urine Osmolality 208 mOsm/kg (300-1090) L 03/12/18 04:59 Consult Discharge Plan - Plan Referrals: Rosemary Suarez MD [Primary Care Provider] -
[2018-03-12 08:09] LABS: BUN/Creatinine Ratio 23 (6-26); Blood Urea Nitrogen 17 mg/dL (8-23); Calcium 8.6 mg/dL (8.6-10.3); Carbon Dioxide 24 mEq/L (23-29); Chloride 97 mEq/L (98-107); Glucose 105 mg/dL (70-105); Osmolality,Calculated 268 (280-300); Potassium 4.1 mEq/L (3.5-5.1); Sodium 128 mEq/L (136-145); eGFR For Non-African Americans > 60 (> 60)
[2018-03-12] MEDS ORDERED: Bisacodyl 10 MG RECTAL SUPPOSITORY RC PRN (08:54)
--- NOTE | 2018-03-12 08:56 | Internal Med Progress Note ---
Hospitalist Progress Note - Encounter Date of Encounter: 03/12/18 Time of Encounter: 08:53 - Subjective Interval History: Seen and evaluated at the bedside 82 F with multiple surgical procdures on the R hip who is admitted and being managed for infected R hip prosthesis, meant for hardware removal and irrigation per ortho She has no new complains Hematocrit improved to 20 today, hemoglobin of 10 following 2 units of red blood cell transfusion TSH noted 25.6, home dose of levothyroxine resumed, may consider increasing dose upon discharge. Medications have been resumed. Per ortho, she is going to surgery this morning. - Exam Vitals: Temp Pulse Resp BP Pulse Ox 97.7 F 77 16 155/95 96 03/12/18 08:10 03/12/18 08:10 03/12/18 08:10 03/12/18 08:10 03/12/18 08:10 Exam: Gen.: Vitals noted. No acute distress. AAOx3 HEENT: PERRL/EOMI, oropharynx clear, Normo cephalic, atraumatic, dry oral mucosa Neck anterior neck fullness Cardiac: RRR, no murmur, +S1/S2 Lungs: CTA bilaterally, no wheezes, rales or rhonchi, equal chest expansion Abdomen: soft, minimally tender to palpation in lower abdomen, BS noted, no guarding, no rebound. MSK: ROM intact, right lower extremity shorter and externally rotated. Wound dressings on right hip lateral region clean and dry. Patient is unable to move that extremity due to combination of pain and deconditioning. 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 Was on IV vancomycin at halfway prior to presentation. 2 sets of blood cultures prelim negative Continue antibiotics Infectious disease evaluation noted, will follow recommendations (2) DVT prophylaxis Current Visit: Yes Status: Acute Assessment and Plan: Received Lovenox subcutaneously However medication reconciliation done and patient will be resumed on Eliquis postoperative (3) Infection of right prosthetic hip joint Current Visit: Yes Status: Acute Assessment and Plan: Persistent, despite aggressive antibiotic regimen For hardware removal Orthopedics consulted, review noted, for surgery today EKG reviewed-LVH, J point elevation, no significant St segment changes Patient is high risk for post-op cardiopumonary complications due to hx of Afib and LBBB as well as poor functional baseline Continue antibiotics Review by infectious disease noted Follow blood cultures (4) Anemia Current Visit: Yes Status: Chronic Assessment and Plan: Hx of chronic anemia, complicated by post-op anemia requiring blood transfusions in last admissions HB today 10 status post 2 units RBCS Continue to monitor Hb (5) Dementia Current Visit: Yes Status: Chronic Assessment and Plan: No behavioural abnormalities Continue home meds Patient is high risk for delirium (6) History of atrial fibrillation Current Visit: Yes Status: Chronic Assessment and Plan: Continue home meds-metoprolol, amiodarone, Eliquis (7) Hypertension Current Visit: Yes Status: Chronic Assessment and Plan: Continue home meds Hod diuretics and ACEI IV hydralazine prn May resume other meds post-op (8) Hyponatremia Current Visit: Yes Status: Acute Assessment and Plan: Hypoosmolar hyponatremia Multifactorial: 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, however, patient also clinically dehydrated Continue gentle hydration TSH 25.6, and urine osmolality low Na 121-125 128 this a.m Continue to monitor Patient is asymptomatic (9) Hypothyroidism Current Visit: Yes Status: Chronic Assessment and Plan: On levothyroxine, resume home dose TSH 25.6 Consider increasing dose prior to discharge - Time Spent with Patient Total time spent is greater than 50% in coordination of care (as documented) at patient's floor/unit and/or counseling patient: Plan of Care Discussed with: patient Internal Medicine: Result - Labs CBC & Chem 7: 03/12/18 07:00 03/12/18 04:59 Labs: Short CBC 03/12/18 Range/Units 07:00 Hgb 10.1 L D (11.5-15.4) g/dL Hct 29.6 L (35.3-44.9) % BMP 03/11/18 03/12/18 16:00 04:59 Sodium 125 L 128 L Potassium 4.4 4.1 Chloride 94 L 97 L Carbon Dioxide 29 24 BUN 17 17 Creatinine 0.76 0.74 Glucose 123 H 105 Calcium 9.2 8.6 Consult Discharge Plan - Plan Referrals: Rosemary Suarez MD [Primary Care Provider] - (3) Infection of right prosthetic hip joint Qualifiers: Encounter type: initial encounter Qualified Code(s): T84.51XA - Infection and inflammatory reaction due to internal right hip prosthesis, initial encounter (4) Anemia Qualifiers: Anemia type: other cause Other causes of anemia: chronic disease, other Qualified Code(s): D63.8 - Anemia in other chronic diseases classified elsewhere (5) Dementia Qualifiers: Dementia type: Alzheimer's disease Alzheimer's disease onset: late-onset Dementia behavioral disturbance: without behavioral disturbance Qualified Code( s): G30.1 - Alzheimer's disease with late onset; F02.80 - Dementia in other diseases classified elsewhere without behavioral disturbance (7) Hypertension Qualifiers: Hypertension type: essential hypertension Qualified Code(s): I10 - Essential (primary) hypertension (9) Hypothyroidism Qualifiers: Hypothyroidism type: unspecified Qualified Code(s): E03.9 - Hypothyroidism, unspecified
[2018-03-12] MEDS: (Phytonadione [Vitamin K] 100 MCG) PO SCH (09:00)
[2018-03-12] MEDS: Cholecalciferol (D-3) 1,000 UNIT TABLET PO SCH (09:00)
[2018-03-12] MEDS: Ascorbic Acid 500 MG TABLET PO SCH (09:00)
[2018-03-12] MEDS: Lactobacillus 1 EACH CAP.SPRINK PO SCH ×2 (09:00→19:53)
[2018-03-12] MEDS: Perphenazine 8 MG TABLET PO SCH (09:00)
[2018-03-12] MEDS: *HR* Amiodarone 200 MG TABLET PO SCH (10:02)
[2018-03-12] MEDS: Metoprolol XL (24 HR) Succ 50 MG TAB.ER.24H PO SCH (10:02)
[2018-03-12] MEDS: 0.9 % Sodium Chloride 1,000 ML IVC SCH (11:46)
--- NOTE | 2018-03-12 13:26 | Infectious Disease Progress No ---
Date of Encounter: 03/12/18 Time of Encounter: 09:00 - Assessment and Plan (1) Nonhealing surgical wound Current Visit: Yes Status: Acute Location: Right hip Etiology: likely multifactorial: poor nutritional status + possible underlying infection. Recommend wound care to evaluate once hardware is removed. Nutritional consult may be helpful as well. Qualifiers: Encounter type: initial encounter Qualified Code(s): T81.89XA - Other complications of procedures, not elsewhere classified, initial encounter (2) Infection of right prosthetic hip joint Current Visit: Yes Status: Acute Location: Right hip. Causative organism: MRSA and Enterococcus. Likely secondary to previous surgical procedures. CT of the right hip showed some soft tissue air concerning for post-op changes vs. infectious etiology. Status post CT-guided joint aspiration that yielded 18ml of pus. Cell count showed >100,000 TNP with 88% segmented neutrophils. Culture was positive for MRSA and Enterococcus. Ortho consulted and following. Status post extensive debridement with retention of hardware 12/18/17. Cultures were positive for MRSA. Treated with 8 weeks of IV Vanc and Rifampin and was transitioned to PO doxycycline January 2018 --> switched to Bactrim per the ortho team. Clinically, the hip does not appear acutely infected. There is obvious wound dehiscence, but no surrounding erythema, warmth, or purulent drainage. The area of dehiscence is very deep and tunnels, so I am concerned that there is tunneling of the wound to the hardware. Check ESR and CRP. Continue Vancomycin IV. Pharmacy to dose. Goal trough ~15. Discussed with the ortho team. It is very likely that the patient will not be able to have the hardware put back in. Duration of treatment depends on the clinical picture. Monitor renal function and for drug toxicity and dose-adjust antibiotics. instructional support services director to assist with discharge planning. Qualifiers: Encounter type: initial encounter Qualified Code(s): T84.51XA - Infection and inflammatory reaction due to internal right hip prosthesis, initial encounter (3) Hyponatremia Current Visit: Yes Status: Acute Etiology unclear. Further workup and management per the primary team. (4) Anemia Current Visit: Yes Status: Chronic Hgb improved to 10. Oozing noted from the right hip wound yesterday, but no xavier bleeding. Dressing is C/D/I today. Continue to trend. Transfusion parameters per the primary team. 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 Carlos. (9) Hypertension Current Visit: Yes Status: Chronic Qualifiers: Hypertension type: essential hypertension Qualified Code(s): I10 - Essential (primary) hypertension (10) Status post-operative repair of closed fracture of right hip Current Visit: No Status: Acute Status post ORIF right femur revision 12/10/[address] Carlos. Intra-op cultures negative. (11) Hip dislocation, right Current Visit: Yes Status: Acute Etiology unclear, but has been known since January 13. Previously, surgery/reduction deferred per ortho due to patient too high risk. X-ray shows known dislocation. Planning to take the patient to the OR later today. Qualifiers: Encounter type: subsequent encounter Qualified Code(s): S73.004D - Unspecified dislocation of right hip, subsequent encounter (12) Hypothyroidism Current Visit: Yes Status: Chronic TSH elevated at 25. Management per the primary team. Qualifiers: Hypothyroidism type: unspecified Qualified Code(s): E03.9 - Hypothyroidism , unspecified - Subjective Interval history: Patient seen and examined. No acute events noted overnight. Patient states she slept well overnight and is feeling okay. Denies fevers, chills, or rigors. Denies chest pain, shortness of breath, or cough. Denies nausea, vomiting, or diarrhea. Denies abdominal pain, urinary complaints, or appetite changes. She is currently NPO for surgery later today, but states she is hungry and did eat dinner last night. Denies pain in the hip. Denies oral thrush or new skin lesions. Infect Dis PN-Objective Data - Labs CBC & Chem 7: 03/12/18 13:45 03/12/18 04:59 Labs: Laboratory Results - last 24 hr 03/10/18 03/10/18 03/11/18 17:43 18:57 16:00 Hgb Hct Sodium 125 L Potassium 4.4 Chloride 94 L Carbon Dioxide 29 BUN 17 Creatinine 0.76 Est GFR ( Amer) > 60 Est GFR (Non-Af Amer) > 60 BUN/Creatinine Ratio 22 Glucose 123 H POC Glucose 163 H Calculated Osmolality 263 L Calcium 9.2 TSH Urine Osmolality Blood Type A POSITIVE Antibody Screen NEGATIVE Crossmatch See Detail 03/11/18 03/11/18 03/12/18 17:00 19:09 04:59 Hgb Hct Sodium Potassium Chloride Carbon Dioxide BUN Creatinine Est GFR ( Amer) Est GFR (Non-Af Amer) BUN/Creatinine Ratio Glucose POC Glucose 123 H 219 H Calculated Osmolality Calcium TSH Urine Osmolality 208 L Blood Type Antibody Screen Crossmatch 03/12/18 03/12/18 04:59 07:00 Hgb 10.1 L D Hct 29.6 L Sodium 128 L Potassium 4.1 Chloride 97 L Carbon Dioxide 24 BUN 17 Creatinine 0.74 Est GFR ( Amer) > 60 Est GFR (Non-Af Amer) > 60 BUN/Creatinine Ratio 23 Glucose 105 POC Glucose Calculated Osmolality 268 L Calcium 8.6 TSH 25.695 H Urine Osmolality Blood Type Antibody Screen Crossmatch Cultures: Cultures 03/10/18 17:43 Blood Culture - Preliminary Peripheral Venipuncture Culture is incubating and being continuously monitored for growth. Final report to follow. 03/10/18 17:43 Blood Culture - Preliminary Peripheral Venipuncture Culture is incubating and being continuously monitored for growth. Final report to follow. Serology 03/12/18 Range/Units 04:59 Urine Osmolality 208 L (300-1090) mOsm/kg Exam - Constitutional Vitals: Temp Pulse Resp BP Pulse Ox 97.7 F 77 16 155/95 96 03/12/18 08:10 03/12/18 08:10 03/12/18 08:10 03/12/18 08:10 03/12/18 08:10 General appearance: average body habitus, cooperative, no acute distress - Head Head exam: Present: atraumatic, normal inspection, normocephalic - Eye Eye exam: Present: EOMI, normal appearance, PERRL Pupils: Present: normal accommodation - ENT ENT exam: Present: mucous membranes moist Additional comments: Very poor dentition noted. - Neck Neck exam: Present: normal inspection - Respiratory Respiratory exam: Present: CTAB. Absent: rales, respiratory distress, rhonchi, wheezes - Cardiovascular Cardiovascular exam: Present: irregular rhythm, +S1, +S2. Absent: tachycardia - GI/Abdominal GI/Abdominal exam: Present: normal bowel sounds, soft. Absent: distended, tenderness Additional comments: Dai catheter noted to be draining clear yellow urine. - Extremities Exam Extremities exam: Present: pedal edema (1+ BLE). Absent: joint swelling, tenderness Additional comments: RLE shortened and externally rotated. Right hip dressing C/D/I. - Neurological Exam Neurological exam: Present: alert, oriented X3, no focal deficits - Psychiatric Psychiatric exam: Present: normal affect, normal mood - Skin Skin exam: Present: dry, intact, normal color, warm Consult Discharge Plan - Plan Referrals: Rosemary Suarez MD [Primary Care Provider] - - Attending Attestation I examined this patient and my medical decision-making was reviewed with the teena felix CNP. I agree with the documented findings, disposition and treatment plan as described except to the extent set forth below.
[2018-03-12] MEDS ORDERED: Ondansetron 4 MG/2 ML VIAL IVP ONE (14:14)
[2018-03-12] MEDS ORDERED: Dexamethasone 4 MG/ML VIAL IVP ONE (14:14)
[2018-03-12 14:18] LABS: Hematocrit 29.2 % (35.3-44.9); Hemoglobin 9.9 g/dL (11.5-15.4)
[2018-03-12] MEDS ORDERED: *HR* Propofol 200 MG/20 ML VIAL IVP ONE (14:22)
[2018-03-12] MEDS ORDERED: *HR* FentaNYL (PF) 100 MCG/2 ML VIAL ONE ×2 (14:22→16:52)
[2018-03-12] MEDS ORDERED: Dexamethasone 4 MG/ML VIAL ONE (14:24)
[2018-03-12] MEDS ORDERED: Ondansetron 4 MG/2 ML VIAL ONE (14:24)
[2018-03-12] MEDS ORDERED: Lidocaine -MPF 2% 2 ML VIAL ONE (14:24)
[2018-03-12] MEDS ORDERED: Clindamycin 900 MG/50 ML 900 MG/50 ML IV.SOLN IVPB ONE (16:29)
[2018-03-12] MEDS ORDERED: *HR* PHENYLEPHRINE 1,000 MCG/10 ML SYRINGE IVP ONE (16:46)
--- NOTE | 2018-03-12 17:28 | Orthopedic Operative Note ---
Date of procedure: 03/12/18 Pre-op diagnosis: Infected dislocated right hip hemiarthroplasty Post-op diagnosis: same Procedure: Procedure: Extensive irrigation debridement and removal of femoral component resection arthroplasty right hip Estimated blood loss: 500 mL Findings: Patient with a draining sinus, fluid consistent with hematoma no purulent material found in the joint. Distal third of incision had a small wound dehiscence area. No active drainage. Dictation of procedure: Patient brought to the operating placed on the operating table after general anesthesia was administered patient was placed left side down right side up lateral decubitus position. All pressure points padded appropriately. The right lower extremity is prepped and draped in sterile surgical fashion, patient received IV antibiotic prior skin incision. A large elliptical incision was made around the draining sinus and around the wound dehiscence area. Distal to the draining sinus area subcutaneous tissue is well-healed. The fascia was intact. Proximally the fascia was then his with direct medication to the implant. Within the joint was approximate 500 mL of hematoma. No purulent material was identified. The hematoma was cultured. An extensive irrigation was performed with a antibacterial solution. The femoral head was removed the component was disassembled and the femoral stem was removed. The bone was resected to a more even surface. It was then irrigated with 3 L of pulse irrigation. The fascia was closed over a DONATO drain with running #2 PDS suture. The deep tissue was closed with #1 PDS suture superficially with 0 PDS suture skin was closed with skin hattie. Patient placed in a sterile dressing and abduction pillow patient was extubated and transferred to recovery in stable condition. Anesthesia: GETA Surgeon: Chito Carlos Was there an funeral assistant present: No Estimated blood loss (cc): 500 Condition: stable Disposition: PACU
[2018-03-12] MEDS: *HR* Morphine 2 MG/ML SYRINGE IVP PRN ×2 (17:57→18:56)
[2018-03-12] MEDS: *HR* Labetalol 100 MG/20 ML MDV IVP PRN ×3 (18:18→18:52)
--- NOTE | 2018-03-12 19:12 | Anesthesia Evaluation Post Op ---
Date of Encounter: 03/12/18 Time of Encounter: 19:00 - Vital Signs Vital Signs: Vital Signs/O2 Sat/Glucose, Most Current Temp Pulse Resp BP Pulse Ox 03/12/18 19:08 72 20 157/71 99 03/12/18 18:58 69 18 155/62 94 03/12/18 18:43 70 18 178/73 96 03/12/18 18:28 71 18 136/60 96 03/12/18 18:18 75 18 160/70 98 03/12/18 18:08 98.7 F 81 18 183/89 99 03/12/18 17:58 84 18 186/81 99 03/12/18 17:48 78 18 188/84 98 03/12/18 17:38 97.2 F L 89 22 184/81 99 - Lungs Lungs: Clear Ascult./Percussion - Airway Airway: Non-obstructed - Cardiovascular Regular Rate - Mental Status Mental Status: Alert & Oriented, Answers Appropriately - Pain Pain Scale used: Maik (Faces) (1) - Nausea Vomiting Nausea Vomiting: Not Present - Hydration Hydration: Ice chips, Dai catheter - Discharge PostOp Status: Transfer Patient to floor Anes Supervising Prov Stmt: Pt seen/evaluated, VSS and has met criteria for discharge to home. - MD Kyleigh
[2018-03-12] MEDS: *HR* HYDROcodone/Acet 5/325 mg TABLET PO PRN (23:20)
[2018-03-13 03:34] LABS: Basophils # 0.1 K/mcL (0.0-0.2); Basophils % 0.5 %; Eosinophils % 0.2 %; Hematocrit 26.5 % (35.3-44.9); Immature Granulocytes % 0.6 % (0-4); Lymphocytes # 1.3 K/mcL (0.6-4.6); Lymphocytes % 12.6 %; Mean Corpuscular Hemoglobin 31.7 pg (28.0-33.3); Mean Corpuscular Volume 93.3 fL (83.0-100.0); Mean Platelet Volume 9.4 fL (9.4-12.4); Monocytes # 0.7 K/mcL (0.0-1.3); Neutrophils # 8.2 K/mcL (1.6-8.9); Platelet Count 296 K/mcL (140-400); Red Blood Count 2.84 M/mcL (3.82-4.97); Segmented Neutrophils % 79.1 %
[2018-03-13 03:46] LABS: BUN/Creatinine Ratio 20 (6-26); Blood Urea Nitrogen 13 mg/dL (8-23); Calcium 8.7 mg/dL (8.6-10.3); Carbon Dioxide 25 mEq/L (23-29); Chloride 100 mEq/L (98-107); Glucose 134 mg/dL (70-105); Osmolality,Calculated 268 (280-300); Potassium 4.9 mEq/L (3.5-5.1); Sodium 128 mEq/L (136-145); eGFR For Non-African Americans > 60 (> 60)
--- NOTE | 2018-03-13 06:41 | Orthopedics Progress Note ---
Date of Encounter: 03/13/18 Time of Encounter: 06:41 Subjective Interval history: Patient was seen this morning doing well without complaints. Afebrile vital signs stable. Operative extremity: Neurovascularly intact Dressing clean dry and intact Calves nontender Assessment and plan: Continue with postoperative care 60 mL out of drain continue IV antibiotics continue drain bed to chair Objective Vital signs: Vital Signs Temp Pulse Resp BP Pulse Ox 03/13/18 04:01 97.9 F 74 16 117/63 100 03/12/18 23:38 98.8 F 80 14 148/64 100 03/12/18 22:47 98.4 F 78 15 153/76 100 03/12/18 21:35 98.2 F 75 16 158/70 98 03/12/18 20:30 98.3 F 70 16 165/66 96 03/12/18 19:59 98.5 F 71 16 171/74 100 03/12/18 19:31 98.5 F 70 16 185/77 98 03/12/18 19:08 72 20 157/71 99 03/12/18 18:58 69 18 155/62 94 03/12/18 18:43 70 18 178/73 96 03/12/18 18:28 71 18 136/60 96 03/12/18 18:18 75 18 160/70 98 03/12/18 18:08 98.7 F 81 18 183/89 99 03/12/18 17:58 84 18 186/81 99 03/12/18 17:48 78 18 188/84 98 03/12/18 17:38 97.2 F L 89 22 184/81 99 03/12/18 08:10 97.7 F 77 16 155/95 96 Intake and Output 03/12/18 03/12/18 03/13/18 15:59 23:59 07:59 Intake Total 50 / 50 Output Total 350 / 350 570 / 570 360 / 360 Balance -350 / -350 -520 / -520 -360 / -360 Intake: Oral 50 / 50 Output: Estimated Blood Loss 500 / 500 Catheter 350 / 350 300 / 300 Wound Drainage 70 / 70 60 / 60 Right Hip 60 / 60 Other: Blood Glucose* 108 151 - Labs CBC & BMP: 03/13/18 03:15 03/13/18 03:15 Labs: Abnormal lab results RBC 2.84 M/mcL (3.82-4.97) L 08/17/18 03:15 Hgb 9.0 g/dL (11.5-15.4) L 03/13/18 03:15 Hct 26.5 % (35.3-44.9) L 03/13/18 03:15 RDW 20.0 % (11.5-14.5) H 03/13/18 03:15 Sodium 128 mEq/L (136-145) L 03/13/18 03:15 Glucose 134 mg/dL (70-105) H 03/13/18 03:15 POC Glucose 107 mg/dL (70-99) H 03/12/18 08:07 Calculated Osmolality 268 (280-300) L 03/13/18 03:15 Alkaline Phosphatase 131 Units/L (34-104) H 03/11/18 01:34 Albumin 2.9 g/dL (3.5-5.7) L 03/11/18 01:34 Globulin 3.6 g/dL (2.4-3.5) H 03/11/18 01:34 Albumin/Globulin Ratio 0.8 (1.1-2.2) L 03/11/18 01:34 TSH 25.695 mcIU/mL (0.340-5.600) H 03/12/18 04:59 Urine Osmolality 208 mOsm/kg (300-1090) L 03/12/18 04:59 Vancomycin Trough 16 mcg/mL (5-10) H 03/13/18 03:15 - VTE Documentation of Mechanical Device: Venous foot pump, device Consult Discharge Plan - Plan Referrals: Rosemary Suarez MD [Primary Care Provider] -
[2018-03-13] MEDS ORDERED: Furosemide 40 MG/4 ML VIAL IVP ONE (06:43)
[2018-03-13] MEDS ORDERED: 0.9 % Sodium Chloride Mini Bag 100 ML ONE (08:19)
[2018-03-13] MEDS ORDERED: 0.9 % Sodium Chloride 250 ML ONE (08:20)
[2018-03-13] MEDS: Apixaban 5 MG TABLET PO SCH ×2 (08:30→21:48)
[2018-03-13] MEDS: Ascorbic Acid 500 MG TABLET PO SCH (08:30)
[2018-03-13] MEDS: Cholecalciferol (D-3) 1,000 UNIT TABLET PO SCH (08:31)
[2018-03-13] MEDS: *HR* OxyCODONE Immed Rel 5 MG TABLET PO PRN (08:31)
[2018-03-13] MEDS: *HR* Amiodarone 200 MG TABLET PO SCH (08:31)
[2018-03-13] MEDS: Metoprolol XL (24 HR) Succ 50 MG TAB.ER.24H PO SCH (08:31)
[2018-03-13] MEDS: Perphenazine 8 MG TABLET PO SCH (08:31)
[2018-03-13] MEDS: Lactobacillus 1 EACH CAP.SPRINK PO SCH ×2 (08:31→21:48)
[2018-03-13] MEDS: (Phytonadione [Vitamin K] 100 MCG) PO SCH (08:33)
--- NOTE | 2018-03-13 09:21 | Internal Med Progress Note ---
Hospitalist Progress Note - Encounter Date of Encounter: 03/13/18 Time of Encounter: 09:21 - Subjective Interval History: Seen and evaluated at the bedside 82 F with multiple surgical procdures on the R hip who is admitted and being managed for infected R hip prosthesis, meant for hardware removal and irrigation per ortho She has no new complains POD#1 s/p Extensive irrigation debridement and removal of femoral component resection arthroplasty right hip 03/12/18 Intra-op cultures were sent and pending - Exam Vitals: Temp Pulse Resp BP Pulse Ox 97.9 F 79 14 124/72 100 03/13/18 09:10 03/13/18 09:10 03/13/18 09:10 03/13/18 09:10 03/13/18 09:10 Exam: Gen.: Vitals noted. No acute distress. AAOx3 HEENT: PERRL/EOMI, oropharynx clear, Normo cephalic, atraumatic, dry oral mucosa Neck anterior neck fullness Cardiac: RRR, no murmur, +S1/S2 Lungs: CTA bilaterally, no wheezes, rales or rhonchi, equal chest expansion Abdomen: soft, minimally tender to palpation in lower abdomen, BS noted, no guarding, no rebound. MSK: ROM intact, right lower extremity shorter and externally rotated. Wound dressings on right hip lateral region clean and dry. Drain with ~30cc of bloody fluid Patient is unable to move that extremity due to combination of pain and deconditioning. 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 Was on IV vancomycin at [facility] prior to presentation. 2 sets of blood cultures from 03/10 prelim negative Continue antibiotics Infectious disease evaluation noted, will follow recommendations (2) DVT prophylaxis Current Visit: Yes Status: Acute Assessment and Plan: Resume eliquis, monitor HB (3) Infection of right prosthetic hip joint Current Visit: Yes Status: Acute Assessment and Plan: POD#1 s/p Extensive irrigation debridement and removal of femoral component resection arthroplasty right hip 03/12/18 Apparently presence of hematoma intra-op Intra-op cultures sent Continue antibiotics Pain control On eliquis , DVT prophylaxis at this time with foot pumps Review by infectious disease noted Follow blood cultures, intra-op cultures, duration of treatment at this time unknown (4) Anemia Current Visit: Yes Status: Chronic Assessment and Plan: Hx of chronic anemia, complicated by post-op anemia requiring blood transfusions in last admissions HB today 9, status post 2 units RBCS Receiving one more unit RBC at my time of review Continue to monitor Hb (5) Dementia Current Visit: Yes Status: Chronic Assessment and Plan: No behavioural abnormalities Continue home meds Patient is high risk for delirium (6) History of atrial fibrillation Current Visit: Yes Status: Chronic Assessment and Plan: Continue home meds-metoprolol, amiodarone, Eliquis (7) Hypertension Current Visit: Yes Status: Chronic Assessment and Plan: Controlled Continue home meds-toprol Resume lasix and lisinopril IV labetalol prn May resume other meds post-op (8) Hyponatremia Current Visit: Yes Status: Acute Assessment and Plan: Hypoosmolar hyponatremia Multifactorial: 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, however, patient also clinically dehydrated Continue gentle hydration TSH 25.6, and urine osmolality low Na 121-125 128 this a.m Continue to monitor Patient is asymptomatic (9) Hypothyroidism Current Visit: Yes Status: Chronic Assessment and Plan: On levothyroxine, resume home dose TSH 25.6 Consider increasing dose prior to discharge - Time Spent with Patient Total time spent is greater than 50% in coordination of care (as documented) at patient's floor/unit and/or counseling patient: Plan of Care Discussed with: patient Internal Medicine: Result - Labs CBC & Chem 7: 03/13/18 03:15 03/13/18 03:15 Labs: Short CBC 03/12/18 03/13/18 Range/Units 13:45 03:15 WBC 10.4 (4.3-11.1) K/mcL Hgb 9.9 L 9.0 L (11.5-15.4) g/dL Hct 29.2 L 26.5 L (35.3-44.9) % Plt Count 296 (140-400) K/mcL Neutrophils # 8.2 (1.6-8.9) K/mcL BMP 03/13/18 03:15 Sodium 128 L Potassium 4.9 Chloride 100 Carbon Dioxide 25 BUN 13 Creatinine 0.65 Glucose 134 H Calcium 8.7 - Impressions Impressions Hip X-Ray 03/12/18 13:08 IMPRESSION: Interval removal of metallic right hip hardware. D/ / Fransisca Castellano Cha, MD / Fransisca Castellano Cha, MD Interpreting Provider: Fransisca Castellano Cha, MD - VTE Documentation of Mechanical Device: Venous foot pump, device Consult Discharge Plan - Plan Referrals: Rosemary Suarez MD [Primary Care Provider] - (3) Infection of right prosthetic hip joint Qualifiers: Encounter type: initial encounter Qualified Code(s): T84.51XA - Infection and inflammatory reaction due to internal right hip prosthesis, initial encounter (4) Anemia Qualifiers: Anemia type: other cause Other causes of anemia: chronic disease, other Qualified Code(s): D63.8 - Anemia in other chronic diseases classified elsewhere (5) Dementia Qualifiers: Dementia type: Alzheimer's disease Alzheimer's disease onset: late-onset Dementia behavioral disturbance: without behavioral disturbance Qualified Code( s): G30.1 - Alzheimer's disease with late onset; F02.80 - Dementia in other diseases classified elsewhere without behavioral disturbance (7) Hypertension Qualifiers: Hypertension type: essential hypertension Qualified Code(s): I10 - Essential (primary) hypertension (9) Hypothyroidism Qualifiers: Hypothyroidism type: unspecified Qualified Code(s): E03.9 - Hypothyroidism, unspecified
--- NOTE | 2018-03-13 09:46 | Infectious Disease Progress No ---
Date of Encounter: 03/13/18 Time of Encounter: 09:44 - Assessment and Plan (1) Nonhealing surgical wound Current Visit: Yes Status: Acute Location: Right hip Etiology: likely multifactorial: poor nutritional status + possible underlying infection. Recommend wound care to evaluate once hardware is removed. Nutritional consult may be helpful as well. Qualifiers: Encounter type: initial encounter Qualified Code(s): T81.89XA - Other complications of procedures, not elsewhere classified, initial encounter (2) Infection of right prosthetic hip joint Current Visit: Yes Status: Acute Location: Right hip. Causative organism: MRSA and Enterococcus. Likely secondary to previous surgical procedures. CT of the right hip showed some soft tissue air concerning for post-op changes vs. infectious etiology. Status post CT-guided joint aspiration that yielded 18ml of pus. Cell count showed >100,000 TNP with 88% segmented neutrophils. Culture was positive for MRSA and Enterococcus. Ortho consulted and following. Status post extensive debridement with retention of hardware 12/18/17. Cultures were positive for MRSA. Treated with 8 weeks of IV Vanc and Rifampin and was transitioned to PO doxycycline January 2018 --> switched to Bactrim per the ortho team. Clinically, the hip did not appear acutely infected. There is obvious wound dehiscence, but no surrounding erythema, warmth, or purulent drainage. The area of dehiscence was very deep and tunnels, so I am concerned that there is tunneling of the wound to the hardware. Status post extensive irrigation and debridement and removal of the femoral component resection total hip arthroplasty 03/12/[address] Carlos. Operative note reviewed. Large hematoma noted. Intra-op cultures and pathology specimens obtained and are pending. Check ESR and CRP. Continue Vancomycin IV. Pharmacy to dose. Goal trough ~15. Discussed with the ortho team. It is very likely that the patient will not be able to have the hardware put back in. Duration of treatment depends on the clinical picture. Monitor renal function and for drug toxicity and dose-adjust antibiotics. employee services manager to assist with discharge planning. Qualifiers: Encounter type: initial encounter Qualified Code(s): T84.51XA - Infection and inflammatory reaction due to internal right hip prosthesis, initial encounter (3) Hyponatremia Current Visit: Yes Status: Acute Etiology unclear. Further workup and management per the primary team. (4) Anemia Current Visit: Yes Status: Chronic Hgb down to 9 this morning, had 500ml EBL from surgery yesterday. Dressing with small amount of shadow drainage this morning. Continue to trend. Transfusion parameters per the primary team. 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 Carlos. (9) Hypertension Current Visit: Yes Status: Chronic Qualifiers: Hypertension type: essential hypertension Qualified Code(s): I10 - Essential (primary) hypertension (10) Status post-operative repair of closed fracture of right hip Current Visit: No Status: Acute Status post ORIF right femur revision 12/10/[address] Carlos. Intra-op cultures negative. (11) Hip dislocation, right Current Visit: Yes Status: Acute Etiology unclear, but has been known since January 13. Previously, surgery/reduction deferred per ortho due to patient too high risk. X-ray showed known dislocation. Status post removal of hardware 03/12/18. Qualifiers: Encounter type: subsequent encounter Qualified Code(s): S73.004D - Unspecified dislocation of right hip, subsequent encounter (12) Hypothyroidism Current Visit: Yes Status: Chronic TSH elevated at 25. Management per the primary team. Qualifiers: Hypothyroidism type: unspecified Qualified Code(s): E03.9 - Hypothyroidism , unspecified - Subjective Interval history: Patient seen and examined. No acute events noted overnight. Patient states she slept well overnight and is feeling okay. Denies fevers, chills, or rigors. Denies chest pain, shortness of breath, or cough. Denies nausea, vomiting, or diarrhea. Denies abdominal pain, urinary complaints, or appetite changes. States she ate a little bit of breakfast this morning Denies pain in the hip at this time, but required PO pain medication earlier. Denies oral thrush or new skin lesions. Reports last BM was Friday. Infect Dis PN-Objective Data - Labs CBC & Chem 7: 03/13/18 03:15 03/13/18 03:15 Labs: Laboratory Results - last 24 hr 03/10/18 03/10/18 03/12/18 17:43 18:57 08:07 WBC RBC Hgb Hct MCV MCH MCHC RDW Plt Count MPV Immature Gran % Seg Neutrophils % Lymphocytes % Monocytes % Eosinophils % Basophils % Neutrophils # Lymphocytes # Monocytes # Eosinophils # Basophils # Sodium Potassium Chloride Carbon Dioxide BUN Creatinine Est GFR ( Amer) Est GFR (Non-Af Amer) BUN/Creatinine Ratio Glucose POC Glucose 163 H 107 H Calculated Osmolality Calcium Vancomycin Trough Blood Type A POSITIVE Antibody Screen NEGATIVE Crossmatch See Detail 03/12/18 03/13/18 03/13/18 13:45 03:15 03:15 WBC 10.4 RBC 2.84 L Hgb 9.9 L 9.0 L Hct 29.2 L 26.5 L MCV 93.3 MCH 31.7 MCHC 34.0 RDW 20.0 H Plt Count 296 MPV 9.4 Immature Gran % 0.6 Seg Neutrophils % 79.1 Lymphocytes % 12.6 Monocytes % 7.0 Eosinophils % 0.2 Basophils % 0.5 Neutrophils # 8.2 Lymphocytes # 1.3 Monocytes # 0.7 Eosinophils # 0.0 Basophils # 0.1 Sodium 128 L Potassium 4.9 Chloride 100 Carbon Dioxide 25 BUN 13 Creatinine 0.65 Est GFR ( Amer) > 60 Est GFR (Non-Af Amer) > 60 BUN/Creatinine Ratio 20 Glucose 134 H POC Glucose Calculated Osmolality 268 L Calcium 8.7 Vancomycin Trough Blood Type Antibody Screen Crossmatch 03/13/18 03:15 WBC RBC Hgb Hct MCV MCH MCHC RDW Plt Count MPV Immature Gran % Seg Neutrophils % Lymphocytes % Monocytes % Eosinophils % Basophils % Neutrophils # Lymphocytes # Monocytes # Eosinophils # Basophils # Sodium Potassium Chloride Carbon Dioxide BUN Creatinine Est GFR ( Amer) Est GFR (Non-Af Amer) BUN/Creatinine Ratio Glucose POC Glucose Calculated Osmolality Calcium Vancomycin Trough 16 H Blood Type Antibody Screen Crossmatch Cultures: Cultures 03/10/18 17:43 Blood Culture - Preliminary Peripheral Venipuncture Culture is incubating and being continuously monitored for growth. Final report to follow. 03/10/18 17:43 Blood Culture - Preliminary Peripheral Venipuncture Culture is incubating and being continuously monitored for growth. Final report to follow. Serology 03/12/18 Range/Units 04:59 Urine Osmolality 208 L (300-1090) mOsm/kg - Impressions Impressions Hip X-Ray 03/12/18 13:08 IMPRESSION: Interval removal of metallic right hip hardware. D/ / Fransisca Castellano Cha, MD / Fransisca Castellano Cha, MD Interpreting Provider: Fransisca Castellano Cha, MD Exam - Constitutional Vitals: Temp Pulse Resp BP Pulse Ox 97.9 F 79 14 124/72 100 03/13/18 09:10 03/13/18 09:10 03/13/18 09:10 03/13/18 09:10 03/13/18 09:10 General appearance: average body habitus, cooperative, no acute distress - Head Head exam: Present: atraumatic, normal inspection, normocephalic - Eye Eye exam: Present: EOMI, normal appearance, PERRL Pupils: Present: normal accommodation - ENT ENT exam: Present: mucous membranes moist Additional comments: Poor dentition noted. - Neck Neck exam: Present: normal inspection - Respiratory Respiratory exam: Present: CTAB. Absent: rales, respiratory distress, rhonchi, wheezes - Cardiovascular Cardiovascular exam: Present: irregular rhythm. Absent: tachycardia - GI/Abdominal GI/Abdominal exam: Present: distended (mildly), normal bowel sounds, soft. Absent: tenderness Additional comments: Dai catheter remains patent draining clear yellow urine. - Extremities Exam Extremities exam: Present: pedal edema (Trace RLE). Absent: joint swelling, tenderness Additional comments: Right hip dressing with small amount of shadow drainage noted. DONATO drain with scant sanguinous drainage noted. ROM not assessed. - Neurological Exam Neurological exam: Present: alert, oriented X3, no focal deficits - Psychiatric Psychiatric exam: Present: normal affect, normal mood - Skin Skin exam: Present: dry, intact, normal color, warm - VTE Documentation of Mechanical Device: Venous foot pump, device Consult Discharge Plan - Plan Referrals: Rosemary Suarez MD [Primary Care Provider] - - Attending Attestation I examined this patient and my medical decision-making was reviewed with Brittany Fernandez CNP. I agree with the documented findings, disposition and treatment plan as described except to the extent set forth below.
--- NOTE | 2018-03-13 13:48 | Event Note ---
Date of Encounter: 03/13/18 Time of Encounter: 12:30 PCR - POD#1 s/p Extensive irrigation debridement and removal of femoral component resection arthroplasty right hip 03/12/18 Patient seen at bedside, without complaints. A&O x 3 Afebrile, vital signs stable. Chronic SOB, patient states she is at baseline. Labs reviewed. H/H 9.0/26.5. received 1 unit RBC today. (received 2 units on ) Pain control: adequate NO therapy - bed to chair transfers only NO ROM right hip All questions and concerns addressed. Educated on use of incentive spirometer. Encouraged ambulation and proper hydration. Patient educated on post-operative restrictions and post-operative care. Assessment and plan: Continue with postoperative care - She has a drain in place to right hip which will plan to be pulled on 03/15/18 by nurse. Noted to have ~25ml currently. There is documented 60ml removed this morning. Continue with pressure dressing to right hip. Continue IV abx - ID is on board and managing Discharge plan: ECF - plan for Avriltone Pierce once medically stable, will stay until at least 03/16/18 waiting for cultures to come back to determine ABX plan detention - infectious disease on board for further management
[2018-03-13] MEDS ORDERED: *HR* OxyCODONE Immed Rel 5 MG TABLET PO PRN (15:02)
[2018-03-13] MEDS: *HR* HYDROcodone/Acet 5/325 mg TABLET PO PRN (17:11)
--- NOTE | 2018-03-13 17:38 | Physician Discharge Referral ---
<Trice Lion - Last Filed: 03/13/18 17:36> [facility] Referral Info Transfer To: F - Diagnosis (1) Infection of right prosthetic hip joint Priority: Primary Status: Acute (2) DVT prophylaxis Priority: Secondary Status: Acute (3) Hip dislocation, right Priority: Secondary Status: Acute (4) Hyponatremia Priority: Secondary Status: Acute (5) Nonhealing surgical wound Priority: Primary Status: Acute (6) Anemia Priority: Secondary Status: Chronic (7) Dementia Priority: Secondary Status: Chronic (8) History of MRSA infection Priority: Secondary Status: Chronic (9) History of atrial fibrillation Priority: Secondary Status: Chronic (10) Hypertension Priority: Secondary Status: Chronic (11) Hypothyroidism Priority: Secondary Status: Chronic (12) Acute blood loss as cause of postoperative anemia Priority: Secondary Status: Acute (13) Bacteremia Priority: Secondary Status: Acute (14) Fracture of hip Priority: Secondary Status: Acute (15) History of right hip hemiarthroplasty Priority: Secondary Status: Acute (16) Leukocytosis Priority: Secondary Status: Acute (17) MRSA (methicillin resistant Staphylococcus aureus) infection Priority: Secondary Status: Acute (18) Orthostatic syncope Priority: Secondary Status: Acute (19) Status post-operative repair of closed fracture of right hip Priority: Secondary Status: Acute (20) Urinary tract infection Priority: Secondary Status: Acute (21) Atrial fibrillation Priority: Secondary Status: Chronic (22) Depression Priority: Secondary Status: Chronic (23) Hyponatremia Priority: Secondary Status: Chronic (24) Left bundle branch block (LBBB) Priority: Secondary Status: Chronic (25) Acute hypokalemia Priority: Secondary Status: Resolved Expected Duration of Placement: <30 days Prognosis: Good Aware of Diagnosis: Patient Aware of Prognosis: Patient - Transfer Medications Prescriptions: Vancomycin HCl 1 gm IV Q12H #4 vial Home Medications: Amiodarone [Cordarone] 200 mg PO DAILY 03/11/18 [History] Apixaban [Eliquis] 5 mg PO BID 03/11/18 [History] Ascorbic Acid [Vitamin C with Winnie Hips] 500 mg PO DAILY 03/11/18 [History] Bisacodyl [Dulcolax] 10 mg RC DAILY PRN 03/11/18 [History] Cholecalciferol (D-3) [Vitamin D] 2,000 unit PO DAILY 03/11/18 [History] Docusate Sodium [Dok] 100 mg PO BID 03/11/18 [History] Ferrous Sulfate [Iron] 325 mg PO DAILY 03/11/18 [History] Imipramine HCl [Tofranil] 50 mg PO BID 03/11/18 [History] Levothyroxine [Synthroid] 50 mcg PO DAILY 03/11/18 [History] Lisinopril [Zestril] 5 mg PO DAILY 03/11/18 [History] Metoprolol Succinate [Toprol Xl] 50 mg PO DAILY 03/11/18 [History] Omeprazole [PriLOSEC] 40 mg PO DAILY 03/11/18 [History] Oxycodone HCl/Acetaminophen [Percocet 5-325 mg Tablet] 1 tab PO Q6H PRN [History] Perphenazine [Trilafon] 8 mg PO DAILY 03/11/18 [History] Phytonadione [Vitamin K] 100 mcg PO DAILY 03/11/18 [History] Polyethylene Glycol 3350 [MiraLAX Powder Bulk 17.9 Oz] 1 scoop PO DAILY [History] Potassium Chloride [K-Tab ER] 20 meq PO DAILY 03/11/18 [History] Vancomycin HCl 1 gm IV Q12H #4 vial 03/16/18 [Rx] Allergies/Adverse Reactions: 3 Allergy/AdvReac Type Severity Reaction Status Date / Time aspirin AdvReac See Verified 12/09/17 14:01 Comments Penicillins AdvReac See Verified 12/09/17 14:01 Comments - Respiratory Orders Smoking Cessation: Smoking cessation has been advised. For more information, call the [place] [employer] Quit Line at 4-220-AJFL-NOW. - Ancillary Orders May use pressure relief devices daily prn, May go on CHANDA w/family/respon constitution party w /meds at nurse discretion PRN, May consult with Dentist, Second Helper, Seam Closer PRN - Mobility Orders Bedrest (BED TO CHAIR TRANSFERS ONLY, NO KNEE ROM, must wear knee immobilizer) - Rehabiliation Orders Rehab Potential: Good - Treatments Skin tear care topically daily PRN per policy List/Other: Opsite dressing, leave intact until first post-operative visit. If dressing becomes >50% saturated, contact office, remove dressing and place appropriate dressing in its place. Do not allow for dressing to get wet. Zipline/Vassar in place, plan to remove at post-operative day #14-16. Total Joint Precautions x 6 weeks Apply cold therapy wrap 3-6x/day for 20 minutes at a time. Encourage ambulation throughout the day Use Incentive spirometer 10x/hour. Elevate affected extremity above heart as tolerated. Brace: Wear knee immoblizer at all times (may remove for hygiene purposes). NO ROM x 6 weeks. Bed to Chair transfers ONLY - Diet Orders Regular CERTIFICATION: I certify that the transfer of the above named patient to an Extended Care Facility is necessary for the continuing treatment of the diagnosis listed. The above information is true and accurate reflection of patient's current condition. Confidential - Redisclosure prohibited without a patient's written consent. <Thuy Rivera - Last Filed: 03/16/18 16:20> - Respiratory Orders Smoking Cessation: Smoking cessation has been advised. For more information, call the [employer] Quit Line at 1-134-YBEO-NOW. - Mobility Orders Chair, Bedrest (BED TO CHAIR TRANSFERS ONLY, NO KNEE ROM, must wear knee immobilizer: WBAT.) - Treatments List/Other: Additional Orders: Daily Wound check and skin breakdown assessments Status post extensive irrigation and debridement and removal of the femoral component resection total hip arthroplasty 03/12/[address] Carlos. Operative note reviewed. Large hematoma noted. Intra-op cultures negative. Check ESR and CRP. Continue Vancomycin IV. Pharmacy to dose. Goal trough ~15. Discussed with the ortho team. It is very likely that the patient will not be able to have the hardware put back in. Duration of treatment depends on the clinical picture. The patient's most recent cultures are negative, but the patient received 2 days of IV antibiotics prior to surgery and was on oral antibiotics prior to that. Given the circumstance, we will likely need to treat for an additional 4 weeks of IV antibiotics and then consider switching her to orals at that point. Monitor renal function and for drug toxicity and dose-adjust antibiotics. director of radio services to assist with discharge planning. Recommend VAT consult for PICC placement prior to discharge. Will need weekly CBC, BUN, Cr, ESR, CRP, and Vanc trough. Will need weekly IV care per protocol. Follow up with ID two weeks post-discharge. CERTIFICATION: I certify that the transfer of the above named patient to an Extended Care Facility is necessary for the continuing treatment of the diagnosis listed. The above information is true and accurate reflection of patient's current condition. Confidential - Redisclosure prohibited without a patient's written consent.
[2018-03-14 04:51] LABS: Basophils # 0.1 K/mcL (0.0-0.2); Basophils % 0.8 %; Eosinophils # 0.3 K/mcL (0.0-0.6); Eosinophils % 3.2 %; Hematocrit 29.1 % (35.3-44.9); Hemoglobin 9.9 g/dL (11.5-15.4); Immature Granulocytes % 0.5 % (0-4); Lymphocytes # 1.7 K/mcL (0.6-4.6); Lymphocytes % 22.2 %; Mean Corpuscular Hemoglobin 31.2 pg (28.0-33.3); Mean Corpuscular Volume 91.8 fL (83.0-100.0); Mean Platelet Volume 9.3 fL (9.4-12.4); Monocytes # 1.1 K/mcL (0.0-1.3); Monocytes % 13.5 %; Neutrophils # 4.7 K/mcL (1.6-8.9); Platelet Count 261 K/mcL (140-400); Red Blood Count 3.17 M/mcL (3.82-4.97); Red Cell Distribution Width 20.6 % (11.5-14.5); Segmented Neutrophils % 59.8 %
[2018-03-14 05:09] LABS: BUN/Creatinine Ratio 20 (6-26); Blood Urea Nitrogen 13 mg/dL (8-23); Calcium 8.7 mg/dL (8.6-10.3); Carbon Dioxide 28 mEq/L (23-29); Chloride 98 mEq/L (98-107); Glucose 99 mg/dL (70-105); Osmolality,Calculated 270 (280-300); Potassium 3.7 mEq/L (3.5-5.1); Sodium 130 mEq/L (136-145); eGFR For Non-African Americans > 60 (> 60)
[2018-03-14] MEDS: Lactobacillus 1 EACH CAP.SPRINK PO SCH ×2 (07:46→21:30)
[2018-03-14] MEDS: Metoprolol XL (24 HR) Succ 50 MG TAB.ER.24H PO SCH (07:46)
[2018-03-14] MEDS: Apixaban 5 MG TABLET PO SCH ×2 (07:46→21:30)
[2018-03-14] MEDS: Cholecalciferol (D-3) 1,000 UNIT TABLET PO SCH (07:47)
[2018-03-14] MEDS: Ascorbic Acid 500 MG TABLET PO SCH (07:47)
[2018-03-14] MEDS: *HR* Amiodarone 200 MG TABLET PO SCH (07:47)
[2018-03-14] MEDS: Perphenazine 8 MG TABLET PO SCH (07:47)
[2018-03-14] MEDS: (Phytonadione [Vitamin K] 100 MCG) PO SCH (07:48)
--- NOTE | 2018-03-14 07:48 | Orthopedics Progress Note ---
Date of Encounter: 03/14/18 Time of Encounter: 07:48 Subjective Interval history: Patient was seen this morning doing well without complaints. Afebrile vital signs stable. Operative extremity: Neurovascularly intact Dressing clean dry and intact Calves nontender Assessment and plan: Continue with postoperative care Objective Vital signs: Vital Signs Temp Pulse Resp BP Pulse Ox 03/14/18 06:50 98.8 F 77 16 154/70 96 03/14/18 03:04 97.7 F 78 15 143/55 100 03/13/18 23:07 98.0 F 83 15 129/69 99 03/13/18 18:24 97.6 F 81 15 129/67 98 03/13/18 09:10 97.9 F 79 14 124/72 100 03/13/18 09:00 99 03/13/18 08:41 97.6 F 78 14 143/73 99 Intake and Output 03/13/18 03/13/18 03/14/18 15:59 23:59 07:59 Intake Total 1050 / 1050 360 / 360 Output Total 2150 / 2150 30 550 / 550 Balance -1100 / -1100 330 / 330 -550 / -550 Intake: Oral 350 / 350 360 / 360 Blood Product 700 / 700 Rbcs Leuko Poor As-1 Unit 700 / 700 [id number] Output: Catheter 2150 / 2150 550 / 550 Wound Drainage Right Hip 30 Other: Meal Lunch Dinner Percent of Meal Consumed 50% 65% Weight 71.4 kg Blood Glucose* 138 211 91 - Labs CBC & BMP: 03/14/18 04:30 03/14/18 04:30 Labs: Abnormal lab results RBC 3.17 M/mcL (3.82-4.97) L 03/14/18 04:30 Hgb 9.9 g/dL (11.5-15.4) L 03/14/18 04:30 Hct 29.1 % (35.3-44.9) L 03/14/18 04:30 RDW 20.6 % (11.5-14.5) H 03/14/18 04:30 MPV 9.3 fL (9.4-12.4) L 03/14/18 04:30 Sodium 130 mEq/L (136-145) L 03/14/18 04:30 POC Glucose 211 mg/dL (70-99) H 03/13/18 20:17 Calculated Osmolality 270 (280-300) L 03/14/18 04:30 Alkaline Phosphatase 131 Units/L (34-104) H 03/11/18 01:34 Albumin 2.9 g/dL (3.5-5.7) L 03/11/18 01:34 Globulin 3.6 g/dL (2.4-3.5) H 03/11/18 01:34 Albumin/Globulin Ratio 0.8 (1.1-2.2) L 03/11/18 01:34 TSH 25.695 mcIU/mL (0.340-5.600) H 03/12/18 04:59 Urine Osmolality 208 mOsm/kg (300-1090) L 03/12/18 04:59 Vancomycin Trough 16 mcg/mL (5-10) H 03/13/18 03:15 - VTE Documentation of Mechanical Device: Venous foot pump, device Consult Discharge Plan - Plan Referrals: Rosemary Suarez MD [Primary Care Provider] -
--- NOTE | 2018-03-14 10:24 | Internal Med Progress Note ---
Hospitalist Progress Note - Encounter Date of Encounter: 03/14/18 Time of Encounter: 10:24 - Subjective Interval History: Seen and evaluated at the bedside 82 F with multiple surgical procdures on the R hip who is admitted and being managed for infected R hip prosthesis, meant for hardware removal and irrigation per ortho She has no new complains POD#2 s/p Extensive irrigation debridement and removal of femoral component resection arthroplasty right hip 03/12/18 Intra-op cultures were sent and pending - Exam Vitals: Temp Pulse Resp BP Pulse Ox 98.8 F 77 16 154/70 96 03/14/18 06:50 03/14/18 06:50 03/14/18 06:50 03/14/18 06:50 03/14/18 08:11 Exam: Gen.: Vitals noted. No acute distress. AAOx3 HEENT: PERRL/EOMI, oropharynx clear, Normo cephalic, atraumatic, dry oral mucosa Neck anterior neck fullness Cardiac: RRR, no murmur, +S1/S2 Lungs: CTA bilaterally, no wheezes, rales or rhonchi, equal chest expansion Abdomen: soft, minimally tender to palpation in lower abdomen, BS noted, no guarding, no rebound. MSK: Wound dressings on right hip lateral region clean and dry. Drain with ~ 30cc of bloody fluid, RLE neurovascularly intact Patient is unable to move that extremity due to combination of pain and deconditioning. 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 Was on IV vancomycin at residential prior to presentation. 2 sets of blood cultures from 03/10 prelim negative Continue antibiotics Infectious disease evaluation noted, will follow recommendations (2) DVT prophylaxis Current Visit: Yes Status: Acute Assessment and Plan: Continue eliquis, monitor HB (3) Infection of right prosthetic hip joint Current Visit: Yes Status: Acute Assessment and Plan: POD#2 s/p Extensive irrigation debridement and removal of femoral component resection arthroplasty right hip 03/12/18 Apparently presence of hematoma intra-op Intra-op cultures sent Continue antibiotics Pain control On eliquis , DVT prophylaxis at this time with foot pumps Review by infectious disease noted Follow blood cultures, intra-op cultures prelim negative, duration of treatment at this time unknown (4) Anemia Current Visit: Yes Status: Chronic Assessment and Plan: Hx of chronic anemia, complicated by post-op anemia requiring blood transfusions in last admissions HB stable today 9, status post 3 units RBCS Continue to monitor Hb (5) Dementia Current Visit: Yes Status: Chronic Assessment and Plan: No behavioural abnormalities Continue home meds Patient is high risk for delirium (6) History of atrial fibrillation Current Visit: Yes Status: Chronic Assessment and Plan: Continue home meds-metoprolol, amiodarone, Eliquis (7) Hypertension Current Visit: Yes Status: Chronic Assessment and Plan: Controlled Continue current meds (8) Hyponatremia Current Visit: Yes Status: Acute Assessment and Plan: Hypoosmolar hyponatremia Multifactorial: 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, however, patient also clinically dehydrated Continue gentle hydration TSH 25.6, and urine osmolality low Na 121-125-128 130 this a.m IVF has been discontinued Continue to monitor Patient is asymptomatic (9) Hypothyroidism Current Visit: Yes Status: Chronic Assessment and Plan: On levothyroxine, resume home dose TSH 25.6 Consider increasing dose prior to discharge - Time Spent with Patient Total time spent is greater than 50% in coordination of care (as documented) at patient's floor/unit and/or counseling patient: Plan of Care Discussed with: patient Internal Medicine: Result - Labs CBC & Chem 7: 03/14/18 04:30 03/14/18 04:30 Labs: Short CBC 03/14/18 Range/Units 04:30 WBC 7.8 (4.3-11.1) K/mcL Hgb 9.9 L (11.5-15.4) g/dL Hct 29.1 L (35.3-44.9) % Plt Count 261 (140-400) K/mcL Neutrophils # 4.7 (1.6-8.9) K/mcL BMP 03/14/18 04:30 Sodium 130 L Potassium 3.7 Chloride 98 Carbon Dioxide 28 BUN 13 Creatinine 0.65 Glucose 99 Calcium 8.7 - VTE Documentation of Mechanical Device: Venous foot pump, device Consult Discharge Plan - Plan Referrals: Rosemary Suarez MD [Primary Care Provider] - (3) Infection of right prosthetic hip joint Qualifiers: Encounter type: initial encounter Qualified Code(s): T84.51XA - Infection and inflammatory reaction due to internal right hip prosthesis, initial encounter (4) Anemia Qualifiers: Anemia type: other cause Other causes of anemia: chronic disease, other Qualified Code(s): D63.8 - Anemia in other chronic diseases classified elsewhere (5) Dementia Qualifiers: Dementia type: Alzheimer's disease Alzheimer's disease onset: late-onset Dementia behavioral disturbance: without behavioral disturbance Qualified Code( s): G30.1 - Alzheimer's disease with late onset; F02.80 - Dementia in other diseases classified elsewhere without behavioral disturbance (7) Hypertension Qualifiers: Hypertension type: essential hypertension Qualified Code(s): I10 - Essential (primary) hypertension (9) Hypothyroidism Qualifiers: Hypothyroidism type: unspecified Qualified Code(s): E03.9 - Hypothyroidism, unspecified
[2018-03-14] MEDS: *HR* OxyCODONE Immed Rel 5 MG TABLET PO PRN ×2 (13:19→21:30)
[2018-03-15 04:35] LABS: Basophils # 0.1 K/mcL (0.0-0.2); Basophils % 0.7 %; Eosinophils # 0.2 K/mcL (0.0-0.6); Eosinophils % 3.2 %; Hemoglobin 9.6 g/dL (11.5-15.4); Immature Granulocytes % 0.7 % (0-4); Immature Platelets 2.4 % (1.1-6.1); Lymphocytes # 1.9 K/mcL (0.6-4.6); Lymphocytes % 27.4 %; Mean Corpuscular HGB Conc 33.1 g/dL (31.6-35.5); Mean Corpuscular Hemoglobin 30.5 pg (28.0-33.3); Mean Corpuscular Volume 92.1 fL (83.0-100.0); Mean Platelet Volume 9.4 fL (9.4-12.4); Monocytes # 0.8 K/mcL (0.0-1.3); Monocytes % 10.9 %; Neutrophils # 3.9 K/mcL (1.6-8.9); Platelet Count 272 K/mcL (140-400); Red Blood Count 3.15 M/mcL (3.82-4.97); Red Cell Distribution Width 19.9 % (11.5-14.5); Segmented Neutrophils % 57.1 %
[2018-03-15 04:53] LABS: BUN/Creatinine Ratio 18 (6-26); Blood Urea Nitrogen 10 mg/dL (8-23); Calcium 8.7 mg/dL (8.6-10.3); Carbon Dioxide 27 mEq/L (23-29); Chloride 101 mEq/L (98-107); Glucose 119 mg/dL (70-105); Osmolality,Calculated 272 (280-300); Potassium 3.5 mEq/L (3.5-5.1); Sodium 131 mEq/L (136-145); eGFR For Non-African Americans > 60 (> 60)
--- NOTE | 2018-03-15 09:31 | Orthopedics Progress Note ---
Date of Encounter: 03/15/18 Time of Encounter: 09:31 Subjective Interval history: Patient was seen this morning doing well without complaints. Afebrile vital signs stable. Operative extremity: Neurovascularly intact Dressing clean dry and intact Calves nontender Assessment and plan: Continue with postoperative care Objective Vital signs: Vital Signs Temp Pulse Resp BP Pulse Ox 03/15/18 07:52 98.2 F 86 17 175/72 96 03/15/18 05:10 98.4 F 78 19 154/68 99 03/14/18 23:35 97.5 F L 79 19 170/69 98 03/14/18 20:15 98.9 F 76 16 156/70 91 03/14/18 16:10 98.7 F 82 16 144/66 94 03/14/18 11:37 97.9 F 83 16 139/69 94 Intake and Output 03/14/18 03/15/18 03/15/18 23:59 07:59 15:59 Intake Total 240 / 240 250 / 250 Output Total 870 / 870 610 / 610 Balance -630 / -630 -360 / -360 Intake: IV Fluids 250 / 250 Vancocin 1,000 MG In 0.9 % 250 / 250 Sodium Chloride 250 ML @ 167 mls/hr IVPB Q24H [facility] Rx#: [id number] Oral 240 / 240 Output: Urine 600 / 600 Catheter 850 / 850 Wound Drainage Right Hip Other: Meal Dinner Percent of Meal Consumed 75% # Urine Diapers 1 Blood Glucose* 186 117 - Labs CBC & BMP: 03/15/18 04:15 03/15/18 04:15 Labs: Abnormal lab results RBC 3.15 M/mcL (3.82-4.97) L 03/15/18 04:15 Hgb 9.6 g/dL (11.5-15.4) L 03/15/18 04:15 Hct 29.0 % (35.3-44.9) L 03/15/18 04:15 RDW 19.9 % (11.5-14.5) H 03/15/18 04:15 Sodium 131 mEq/L (136-145) L 03/15/18 04:15 Creatinine 0.56 mg/dL (0.60-1.20) L 03/15/18 04:15 Glucose 119 mg/dL (70-105) H 03/15/18 04:15 POC Glucose 186 mg/dL (70-99) H 03/14/18 20:15 Calculated Osmolality 272 (280-300) L 03/15/18 04:15 Alkaline Phosphatase 131 Units/L (34-104) H 03/11/18 01:34 Albumin 2.9 g/dL (3.5-5.7) L 03/11/18 01:34 Globulin 3.6 g/dL (2.4-3.5) H 03/11/18 01:34 Albumin/Globulin Ratio 0.8 (1.1-2.2) L 03/11/18 01:34 TSH 25.695 mcIU/mL (0.340-5.600) H 03/12/18 04:59 Urine Osmolality 208 mOsm/kg (300-1090) L 03/12/18 04:59 Vancomycin Trough 16 mcg/mL (5-10) H 03/13/18 03:15 - VTE Documentation of Mechanical Device: Venous foot pump, device Consult Discharge Plan - Plan Referrals: Rosemary Suarez MD [Primary Care Provider] -
[2018-03-15] MEDS: Lactobacillus 1 EACH CAP.SPRINK PO SCH ×2 (09:50→19:55)
[2018-03-15] MEDS: *HR* Amiodarone 200 MG TABLET PO SCH (09:51)
[2018-03-15] MEDS: Cholecalciferol (D-3) 1,000 UNIT TABLET PO SCH (09:51)
[2018-03-15] MEDS: Metoprolol XL (24 HR) Succ 50 MG TAB.ER.24H PO SCH (09:51)
[2018-03-15] MEDS: Perphenazine 8 MG TABLET PO SCH (09:51)
[2018-03-15] MEDS: Apixaban 5 MG TABLET PO SCH ×2 (09:51→19:54)
[2018-03-15] MEDS: (Phytonadione [Vitamin K] 100 MCG) PO SCH (09:52)
[2018-03-15] MEDS: Ascorbic Acid 500 MG TABLET PO SCH (09:52)
--- NOTE | 2018-03-15 10:05 | Internal Med Progress Note ---
Hospitalist Progress Note - Encounter Date of Encounter: 03/15/18 Time of Encounter: 10:05 - Subjective Interval History: Seen and evaluated at the bedside 82 F with Afib, Dementia, Hypothyroidism, HTN, and history of MRSA bacteremia as well as infected right prosthetic hip joint with MRSA and enterococcus. She was admitted 03/11 and being managed for infected R hip hardware Patient is status post: 12/18/17 Extensive irrigation and debridement infected right hip Dr. Carlos 12/10/17-Right femur open reduction internal fixation Revision femur of right hip hemiarthroplasty Dr. 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 Jaeger for painful hardware 01/28/17 -s/p right subscapular valgus impacted femoral neck fractureIn situ percutaneous screw fixation of right femur on Dr. Jaeger for right subcapital valgus impacted femoral neck fracture During the last admission in 11/2017, she had MRSA bacteremia and synovial fluid grew enterococcus and MRSA She was discharged to SNF 12/24/2017 with IV antibiotics for 6 weeks. She is seen and examined at the bedside She has no new complains, pain is controlled, dressing was done 03/14, ortho is following POD#3 s/p Extensive irrigation debridement and removal of femoral component resection arthroplasty right hip 03/12/18 Wound and blood cultures prelim negative Plan is to continue current care, Infectious disease is following, Per SW patient will need pre-cert when clinically cleared for discharge - Exam Vitals: Temp Pulse Resp BP Pulse Ox 98.2 F 80 17 151/54 96 03/15/18 07:52 03/15/18 09:56 03/15/18 07:52 03/15/18 09:56 03/15/18 07:52 Exam: Gen.: Vitals noted. No acute distress. AAOx3 HEENT: PERRL/EOMI, oropharynx clear, Normo cephalic, atraumatic, dry oral mucosa Neck anterior neck fullness Cardiac: RRR, no murmur, +S1/S2 Lungs: CTA bilaterally, no wheezes, rales or rhonchi, equal chest expansion Abdomen: soft, minimally tender to palpation in lower abdomen, BS noted, no guarding, no rebound. MSK: Wound dressings on right hip lateral region clean and dry. Drain with minimal serosanguinous fluid, RLE neurovascularly intact Patient is unable to move that extremity due to combination of pain and deconditioning. 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 Was on IV vancomycin at intermediate prior to presentation. 2 sets of blood cultures from 03/10 prelim negative Continue antibiotics Infectious disease evaluation noted, will follow recommendations (2) DVT prophylaxis Current Visit: Yes Status: Acute Assessment and Plan: Continue eliquis, monitor HB (3) Infection of right prosthetic hip joint Current Visit: Yes Status: Acute Assessment and Plan: POD#3 s/p Extensive irrigation debridement and removal of femoral component resection arthroplasty right hip 03/12/18 Apparently presence of hematoma intra-op Intra-op cultures sent , prelim negative Pain control On eliquis , continue same Review by infectious disease noted, duration of antibiotics likely dependent on culture reports Follow final cultures Continue vanco, goal trough 15, renal function is stable (4) Anemia Current Visit: Yes Status: Chronic Assessment and Plan: Hx of chronic anemia, complicated by post-op anemia requiring blood transfusions in last admissions HB stable today 9, status post 3 units RBCS Continue to monitor Hb (5) Dementia Current Visit: Yes Status: Chronic Assessment and Plan: No behavioural abnormalities Continue home meds Patient is high risk for delirium (6) History of atrial fibrillation Current Visit: Yes Status: Chronic Assessment and Plan: Continue home meds-metoprolol, amiodarone, Eliquis (7) Hypertension Current Visit: Yes Status: Chronic Assessment and Plan: Controlled Continue current meds (8) Hyponatremia Current Visit: Yes Status: Acute Assessment and Plan: Continues to improve Hypoosmolar hyponatremia Multifactorial: 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, however, patient also clinically dehydrated Continue gentle hydration TSH 25.6, and urine osmolality low Na [phone] 131 this a.m IVF has been discontinued Continue to monitor Patient is asymptomatic (9) Hypothyroidism Current Visit: Yes Status: Chronic Assessment and Plan: On levothyroxine, resume home dose TSH 25.6 Consider increasing dose prior to discharge - Time Spent with Patient Total time spent is greater than 50% in coordination of care (as documented) at patient's floor/unit and/or counseling patient: Plan of Care Discussed with: patient Internal Medicine: Result - Labs CBC & Chem 7: 03/15/18 04:15 03/15/18 04:15 Labs: Short CBC 03/15/18 Range/Units 04:15 WBC 6.9 (4.3-11.1) K/mcL Hgb 9.6 L (11.5-15.4) g/dL Hct 29.0 L (35.3-44.9) % Plt Count 272 (140-400) K/mcL Neutrophils # 3.9 (1.6-8.9) K/mcL BMP 03/15/18 04:15 Sodium 131 L Potassium 3.5 Chloride 101 Carbon Dioxide 27 BUN 10 Creatinine 0.56 L Glucose 119 H Calcium 8.7 - VTE Documentation of Mechanical Device: Venous foot pump, device Consult Discharge Plan - Plan Referrals: Rosemary Suarez MD [Primary Care Provider] - (3) Infection of right prosthetic hip joint Qualifiers: Encounter type: initial encounter Qualified Code(s): T84.51XA - Infection and inflammatory reaction due to internal right hip prosthesis, initial encounter (4) Anemia Qualifiers: Anemia type: other cause Other causes of anemia: chronic disease, other Qualified Code(s): D63.8 - Anemia in other chronic diseases classified elsewhere (5) Dementia Qualifiers: Dementia type: Alzheimer's disease Alzheimer's disease onset: late-onset Dementia behavioral disturbance: without behavioral disturbance Qualified Code( s): G30.1 - Alzheimer's disease with late onset; F02.80 - Dementia in other diseases classified elsewhere without behavioral disturbance (7) Hypertension Qualifiers: Hypertension type: essential hypertension Qualified Code(s): I10 - Essential (primary) hypertension (9) Hypothyroidism Qualifiers: Hypothyroidism type: unspecified Qualified Code(s): E03.9 - Hypothyroidism, unspecified
[2018-03-15] MEDS: *HR* OxyCODONE Immed Rel 5 MG TABLET PO PRN (16:24)
[2018-03-16] MEDS: *HR* Amiodarone 200 MG TABLET PO SCH (07:31)
[2018-03-16] MEDS: Cholecalciferol (D-3) 1,000 UNIT TABLET PO SCH (07:32)
[2018-03-16] MEDS: Perphenazine 8 MG TABLET PO SCH (07:32)
[2018-03-16] MEDS: Lactobacillus 1 EACH CAP.SPRINK PO SCH ×2 (07:32→21:56)
[2018-03-16] MEDS: (Phytonadione [Vitamin K] 100 MCG) PO SCH (07:33)
[2018-03-16] MEDS: Apixaban 5 MG TABLET PO SCH ×2 (07:33→21:56)
[2018-03-16] MEDS: Ascorbic Acid 500 MG TABLET PO SCH (07:33)
[2018-03-16] MEDS: Metoprolol XL (24 HR) Succ 50 MG TAB.ER.24H PO SCH (07:33)
--- NOTE | 2018-03-16 08:04 | Orthopedics Progress Note ---
Date of Encounter: 03/16/18 Time of Encounter: 08:04 Subjective Interval history: Patient was seen this morning doing well without complaints. Afebrile vital signs stable. Operative extremity: Neurovascularly intact Dressing clean dry and intact Calves nontender Assessment and plan: Continue with postoperative care Cultures negative plan for discharge on antibiotics as per infectious disease Objective Vital signs: Vital Signs Temp Pulse Resp BP Pulse Ox 03/16/18 04:28 98 F 72 15 151/74 96 03/16/18 00:03 98.2 F 74 16 147/65 97 03/15/18 19:27 98.5 F 78 18 130/64 97 03/15/18 16:51 98.3 F 78 16 124/70 99 03/15/18 11:18 98.1 F 87 17 148/74 97 03/15/18 10:03 96 03/15/18 09:56 80 151/54 Intake and Output 03/15/18 03/16/18 03/16/18 23:59 07:59 15:59 Intake Total 250 / 250 Output Total 450 / 450 430 / 430 Balance -450 / -450 -180 / -180 Intake: IV Fluids 250 / 250 Vancocin 1,250 MG In 0.9 % 250 / 250 Sodium Chloride 250 ML @ 166.67 mls/hr IVPB Q24H [facility] Rx#: [id number] Output: Catheter 400 / 400 400 / 400 Urethral (Dai) 400 / 400 Wound Drainage 50 / 50 30 / 30 Right Hip 50 / 50 30 / 30 Other: Blood Glucose* 169 - Labs CBC & BMP: 03/15/18 04:15 03/15/18 04:15 Labs: Abnormal lab results RBC 3.15 M/mcL (3.82-4.97) L 03/15/18 04:15 Hgb 9.6 g/dL (11.5-15.4) L 03/15/18 04:15 Hct 29.0 % (35.3-44.9) L 03/15/18 04:15 RDW 19.9 % (11.5-14.5) H 03/15/18 04:15 Sodium 131 mEq/L (136-145) L 03/15/18 04:15 Creatinine 0.56 mg/dL (0.60-1.20) L 03/15/18 04:15 Glucose 119 mg/dL (70-105) H 03/15/18 04:15 POC Glucose 169 mg/dL (70-99) H 03/15/18 19:29 Calculated Osmolality 272 (280-300) L 03/15/18 04:15 Alkaline Phosphatase 131 Units/L (34-104) H 03/11/18 01:34 Albumin 2.9 g/dL (3.5-5.7) L 03/11/18 01:34 Globulin 3.6 g/dL (2.4-3.5) H 03/11/18 01:34 Albumin/Globulin Ratio 0.8 (1.1-2.2) L 03/11/18 01:34 TSH 25.695 mcIU/mL (0.340-5.600) H 03/12/18 04:59 Urine Osmolality 208 mOsm/kg (300-1090) L 03/12/18 04:59 Vancomycin Trough 13 mcg/mL (5-10) H 03/16/18 03:00 - VTE Documentation of Mechanical Device: Venous foot pump, device Consult Discharge Plan - Plan Referrals: Rosemary Suarez MD [Primary Care Provider] -
--- NOTE | 2018-03-16 12:00 | Infectious Disease Progress No ---
Date of Encounter: 03/16/18 Time of Encounter: 10:45 - Assessment and Plan (1) Nonhealing surgical wound Current Visit: Yes Status: Acute Location: Right hip Etiology: likely multifactorial: poor nutritional status + possible underlying infection. Recommend wound care to evaluate for post-op wound management given the patient' s history of delayed wound healing. Nutritional consult may be helpful as well. Qualifiers: Encounter type: initial encounter Qualified Code(s): T81.89XA - Other complications of procedures, not elsewhere classified, initial encounter (2) Infection of right prosthetic hip joint Current Visit: Yes Status: Acute Location: Right hip. Causative organism: MRSA and Enterococcus. Likely secondary to previous surgical procedures. CT of the right hip showed some soft tissue air concerning for post-op changes vs. infectious etiology. Status post CT-guided joint aspiration that yielded 18ml of pus. Cell count showed >100,000 TNP with 88% segmented neutrophils. Culture was positive for MRSA and Enterococcus. Ortho consulted and following. Status post extensive debridement with retention of hardware 12/18/17. Cultures were positive for MRSA. Treated with 8 weeks of IV Vanc and Rifampin and was transitioned to PO doxycycline January 2018 --> switched to Bactrim per the ortho team. Clinically, the hip did not appear acutely infected. There is obvious wound dehiscence, but no surrounding erythema, warmth, or purulent drainage. The area of dehiscence was very deep and tunnels, so I am concerned that there is tunneling of the wound to the hardware. Status post extensive irrigation and debridement and removal of the femoral component resection total hip arthroplasty 03/12/[address] Carlos. Operative note reviewed. Large hematoma noted. Intra-op cultures negative. Check ESR and CRP. Continue Vancomycin IV. Pharmacy to dose. Goal trough ~15. Discussed with the ortho team. It is very likely that the patient will not be able to have the hardware put back in. Duration of treatment depends on the clinical picture. The patient's most recent cultures are negative, but the patient received 2 days of IV antibiotics prior to surgery and was on oral antibiotics prior to that. Given the circumstance, we will likely need to treat for an additional 4 weeks of IV antibiotics and then consider switching her to orals at that point. Monitor renal function and for drug toxicity and dose-adjust antibiotics. visitor services associate to assist with discharge planning. Recommend VAT consult for PICC placement prior to discharge. Will need weekly CBC, BUN, Cr, ESR, CRP, and Vanc trough. Will need weekly IV care per protocol. Follow up with ID two weeks post-discharge. Qualifiers: Encounter type: initial encounter Qualified Code(s): T84.51XA - Infection and inflammatory reaction due to internal right hip prosthesis, initial encounter (3) Hyponatremia Current Visit: Yes Status: Acute Etiology unclear. Further workup and management per the primary team. (4) Anemia Current Visit: Yes Status: Chronic Hgb stable at around 9. Dressing C/D/I. Continue to trend. Transfusion parameters per the primary team. 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 Carlos. (9) Hypertension Current Visit: Yes Status: Chronic Qualifiers: Hypertension type: essential hypertension Qualified Code(s): I10 - Essential (primary) hypertension (10) Status post-operative repair of closed fracture of right hip Current Visit: No Status: Acute Status post ORIF right femur revision 12/10/[address] Carlos. Intra-op cultures negative. (11) Hip dislocation, right Current Visit: Yes Status: Acute Etiology unclear, but has been known since January 13. Previously, surgery/reduction deferred per ortho due to patient too high risk. X-ray showed known dislocation. Status post removal of hardware 03/12/18. Qualifiers: Encounter type: subsequent encounter Qualified Code(s): S73.004D - Unspecified dislocation of right hip, subsequent encounter (12) Hypothyroidism Current Visit: Yes Status: Chronic TSH elevated at 25. Management per the primary team. Qualifiers: Hypothyroidism type: unspecified Qualified Code(s): E03.9 - Hypothyroidism , unspecified - Subjective Interval history: Patient seen and examined. No acute events noted overnight. Patient states she slept well overnight and is feeling okay. Denies fevers, chills, or rigors. Denies chest pain, shortness of breath, or cough. Denies nausea, vomiting, or diarrhea. Denies abdominal pain, urinary complaints, or appetite changes. States she ate a little bit of breakfast this morning. Denies pain in the hip at this time. Denies oral thrush or new skin lesions. Reports last BM was last week. Infect Dis PN-Objective Data - Labs CBC & Chem 7: 03/15/18 04:15 03/15/18 04:15 Labs: Laboratory Results - last 24 hr 03/15/18 03/15/18 03/16/18 16:06 19:29 03:00 POC Glucose 136 H 169 H Vancomycin Trough 13 H 03/16/18 03/16/18 08:13 11:52 POC Glucose 108 H 175 H Vancomycin Trough Cultures: Cultures 03/10/18 17:43 Blood Culture - Final Peripheral Venipuncture No growth. Final report. 03/10/18 17:43 Blood Culture - Final Peripheral Venipuncture No growth. Final report. 03/12/18 17:24 Anaerobic Culture - Preliminary Right Hip At this time, no anaerobic growth is present. The culture will be finalized after 5 days of incubation. 03/12/18 17:24 Wound Culture - Final Right Hip No growth. Serology 03/12/18 Range/Units 04:59 Urine Osmolality 208 L (300-1090) mOsm/kg Exam - Constitutional Vitals: Temp Pulse Resp BP Pulse Ox 97.9 F 71 16 149/73 99 03/16/18 08:17 03/16/18 08:17 03/16/18 08:17 03/16/18 08:17 03/16/18 08:17 General appearance: average body habitus, cooperative, no acute distress - Head Head exam: Present: atraumatic, normal inspection, normocephalic - Eye Eye exam: Present: EOMI, normal appearance, PERRL Pupils: Present: normal accommodation - ENT ENT exam: Present: mucous membranes moist - Neck Neck exam: Present: normal inspection - Respiratory Respiratory exam: Present: CTAB. Absent: rales, respiratory distress, rhonchi, wheezes - Cardiovascular Cardiovascular exam: Present: irregular rhythm, +S1, +S2. Absent: tachycardia - GI/Abdominal GI/Abdominal exam: Present: normal bowel sounds, soft. Absent: distended, tenderness Additional comments: Dai catheter noted to be draining clear yellow urine. - Extremities Exam Extremities exam: Present: normal inspection, pedal edema (1+ RLE). Absent: joint swelling, tenderness Additional comments: Right hip dressing C/D/I. - Neurological Exam Neurological exam: Present: alert, oriented X3, no focal deficits - Psychiatric Psychiatric exam: Present: normal affect, normal mood - Skin Skin exam: Present: dry, intact, normal color, warm - VTE Documentation of Mechanical Device: Venous foot pump, device Consult Discharge Plan - Plan Referrals: Rosemary Suarez MD [Primary Care Provider] - - Attending Attestation I examined this patient and my medical decision-making was reviewed with the Resident Physician. I agree with the documented findings, disposition and treatment plan as described except to the extent set forth below.
--- NOTE | 2018-03-16 20:24 | Internal Med Progress Note ---
Hospitalist Progress Note - Encounter Date of Encounter: 03/16/18 Time of Encounter: 15:00 - Subjective Interval History: Ms Garcia is currently admitted for MRSA hip infection. She is on IV abx. She is awaiting insurance approval for SNF. PICC to be placed tomorrow. Ms Garcia says she is feeling OK. No fever or chills. No CP. Pain is controlled. No GI issues. - Exam Vitals: Temp Pulse Resp BP Pulse Ox 97.9 F 78 16 134/64 94 03/16/18 19:22 03/16/18 19:22 03/16/18 19:22 03/16/18 19:22 03/16/18 19:22 Exam: General: Alert and oriented. Pleasant. Skin: Normal color, no rash, no lesions. H: EOM, pupils equal, round and reactive. EENT: Mucus membranes moist. No lesion. Cardiovascular: Normal S1 & S2, no rubs, murmurs or gallops. No JVD. Pulse regular. Lungs: Normal breath sounds, no wheezes or crackles. Abdomen: Soft, non-tender, no rigidity. Extremities: Dressing intact. No edema Neurological: Normal cognition and motor skills. Pulses: Carotid and radial pulses normal +2. Rest of the physical exam is non contributory - Assessment and Plan (1) Hypertension Current Visit: Yes Status: Chronic Assessment and Plan: Currently controlled. Continue same meds at this time. (2) DVT prophylaxis Current Visit: Yes Status: Acute (3) Anemia Current Visit: Yes Status: Chronic Assessment and Plan: Hemoglobin has been stable. Will recheck tomorrow. (4) History of atrial fibrillation Current Visit: Yes Status: Chronic Assessment and Plan: No acute issues at this time. (5) Dementia Current Visit: Yes Status: Chronic Assessment and Plan: No behavioural abnormalities Continue home meds (6) Infection of right prosthetic hip joint Current Visit: Yes Status: Acute Assessment and Plan: POD#4 s/p Extensive irrigation debridement and removal of femoral component resection arthroplasty right hip 03/12/18 Apparently presence of hematoma intra-op Intra-op cultures sent On eliquis , continue same Review by infectious disease noted, PICC to be placed tomorrow. 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 Was on IV vancomycin at [facility] prior to presentation. 2 sets of blood cultures from 03/10 prelim negative Continue antibiotics Infectious disease evaluation noted, will follow recommendations PICC to be placed tomorrow. (8) Hyponatremia Current Visit: Yes Status: Acute Assessment and Plan: Will recheck level tomorrow and reassess. (9) Hypothyroidism Current Visit: Yes Status: Chronic Assessment and Plan: On levothyroxine, resume home dose TSH 25.6 Consider increasing dose prior to discharge - Time Spent with Patient Total time spent is greater than 50% in coordination of care (as documented) at patient's floor/unit and/or counseling patient: Internal Medicine: Result - Labs CBC & Chem 7: 03/15/18 04:15 03/15/18 04:15 - VTE Documentation of Mechanical Device: Venous foot pump, device Consult Discharge Plan - Plan Referrals: Rosemary Suarez MD [Primary Care Provider] - Prescriptions: Vancomycin HCl 1 gm IV Q12H #4 vial (1) Hypertension Qualifiers: Hypertension type: essential hypertension Qualified Code(s): I10 - Essential (primary) hypertension (3) Anemia Qualifiers: Anemia type: other cause Other causes of anemia: chronic disease, other Qualified Code(s): D63.8 - Anemia in other chronic diseases classified elsewhere (5) Dementia Qualifiers: Dementia type: Alzheimer's disease Alzheimer's disease onset: late-onset Dementia behavioral disturbance: without behavioral disturbance Qualified Code( s): G30.1 - Alzheimer's disease with late onset; F02.80 - Dementia in other diseases classified elsewhere without behavioral disturbance (6) Infection of right prosthetic hip joint Qualifiers: Encounter type: subsequent encounter Qualified Code(s): T84.51XD - Infection and inflammatory reaction due to internal right hip prosthesis, subsequent encounter (9) Hypothyroidism Qualifiers: Hypothyroidism type: acquired Qualified Code(s): E03.9 - Hypothyroidism, unspecified
[2018-03-16] MEDS: *HR* OxyCODONE Immed Rel 5 MG TABLET PO PRN (21:55)
--- NOTE | 2018-03-17 06:50 | Orthopedics Progress Note ---
Date of Encounter: 03/17/18 Time of Encounter: 06:49 Subjective Interval history: Patient was seen this morning doing well without complaints. Afebrile vital signs stable. Operative extremity: Neurovascularly intact Dressing clean dry and intact Calves nontender Assessment and plan: Continue with postoperative care Cultures negative plan for discharge on antibiotics as per infectious disease awaiting placement Objective Vital signs: Vital Signs Temp Pulse Resp BP Pulse Ox 03/16/18 23:06 98.1 F 79 16 137/66 99 03/16/18 19:22 97.9 F 78 16 134/64 94 03/16/18 16:57 98.7 F 87 18 112/74 100 03/16/18 11:55 97.9 F 80 16 145/73 97 03/16/18 08:17 97.9 F 71 16 149/73 99 Intake and Output 03/16/18 03/16/18 03/17/18 15:59 23:59 07:59 Intake Total 240 / 240 50 / 50 Output Total 400 / 400 600 / 600 Balance -160 / -160 -550 / -550 Intake: Oral 240 / 240 50 / 50 Output: Catheter 400 / 400 600 / 600 Other: Meal Lunch Percent of Meal Consumed 65% Blood Glucose* 138 184 - Labs CBC & BMP: 03/15/18 04:15 03/15/18 04:15 Labs: Abnormal lab results RBC 3.15 M/mcL (3.82-4.97) L 03/15/18 04:15 Hgb 9.6 g/dL (11.5-15.4) L 03/15/18 04:15 Hct 29.0 % (35.3-44.9) L 03/15/18 04:15 RDW 19.9 % (11.5-14.5) H 03/15/18 04:15 Sodium 131 mEq/L (136-145) L 03/15/18 04:15 Creatinine 0.56 mg/dL (0.60-1.20) L 03/15/18 04:15 Glucose 119 mg/dL (70-105) H 03/15/18 04:15 POC Glucose 184 mg/dL (70-99) H 03/16/18 20:18 Calculated Osmolality 272 (280-300) L 03/15/18 04:15 Alkaline Phosphatase 131 Units/L (34-104) H 03/11/18 01:34 Albumin 2.9 g/dL (3.5-5.7) L 03/11/18 01:34 Globulin 3.6 g/dL (2.4-3.5) H 03/11/18 01:34 Albumin/Globulin Ratio 0.8 (1.1-2.2) L 03/11/18 01:34 TSH 25.695 mcIU/mL (0.340-5.600) H 03/12/18 04:59 Urine Osmolality 208 mOsm/kg (300-1090) L 03/12/18 04:59 Vancomycin Trough 13 mcg/mL (5-10) H 03/16/18 03:00 - VTE Documentation of Mechanical Device: Venous foot pump, device Consult Discharge Plan - Plan Referrals: Rosemary Suarez MD [Primary Care Provider] - Prescriptions: Vancomycin HCl 1 gm IV Q12H #4 vial
[2018-03-17 06:58] LABS: Hematocrit 26.3 % (35.3-44.9); Hemoglobin 8.7 g/dL (11.5-15.4); Mean Corpuscular HGB Conc 33.1 g/dL (31.6-35.5); Mean Corpuscular Hemoglobin 30.5 pg (28.0-33.3); Mean Corpuscular Volume 92.3 fL (83.0-100.0); Mean Platelet Volume 9.4 fL (9.4-12.4); Platelet Count 260 K/mcL (140-400); Red Blood Count 2.85 M/mcL (3.82-4.97); Red Cell Distribution Width 18.9 % (11.5-14.5)
[2018-03-17 07:16] LABS: BUN/Creatinine Ratio 21 (6-26); Blood Urea Nitrogen 12 mg/dL (8-23); Calcium 8.7 mg/dL (8.6-10.3); Carbon Dioxide 26 mEq/L (23-29); Chloride 99 mEq/L (98-107); Glucose 124 mg/dL (70-105); Magnesium 1.8 mg/dL (1.6-2.6); Osmolality,Calculated 267 (280-300); Potassium 4.2 mEq/L (3.5-5.1); Sodium 128 mEq/L (136-145); eGFR For Non-African Americans > 60 (> 60)
[2018-03-17] MEDS: *HR* Amiodarone 200 MG TABLET PO SCH (08:51)
[2018-03-17] MEDS: Lactobacillus 1 EACH CAP.SPRINK PO SCH ×2 (08:51→21:07)
[2018-03-17] MEDS: Perphenazine 8 MG TABLET PO SCH (08:51)
[2018-03-17] MEDS: Metoprolol XL (24 HR) Succ 50 MG TAB.ER.24H PO SCH (08:51)
[2018-03-17] MEDS: Cholecalciferol (D-3) 1,000 UNIT TABLET PO SCH (08:51)
[2018-03-17] MEDS: Ascorbic Acid 500 MG TABLET PO SCH (08:51)
[2018-03-17] MEDS: Apixaban 5 MG TABLET PO SCH ×2 (08:52→21:07)
[2018-03-17] MEDS: (Phytonadione [Vitamin K] 100 MCG) PO SCH (09:03)
--- NOTE | 2018-03-17 09:58 | Infectious Disease Progress No ---
Date of Encounter: 03/17/18 Time of Encounter: 09:20 - Assessment and Plan (1) Nonhealing surgical wound Current Visit: Yes Status: Acute Location: Right hip Etiology: likely multifactorial: poor nutritional status + possible underlying infection. Recommend wound care to evaluate for post-op wound management given the patient' s history of delayed wound healing. Nutritional consult may be helpful as well. Qualifiers: Encounter type: initial encounter Qualified Code(s): T81.89XA - Other complications of procedures, not elsewhere classified, initial encounter (2) Infection of right prosthetic hip joint Current Visit: Yes Status: Acute Location: Right hip. Causative organism: MRSA and Enterococcus. Likely secondary to previous surgical procedures. CT of the right hip showed some soft tissue air concerning for post-op changes vs. infectious etiology. Status post CT-guided joint aspiration that yielded 18ml of pus. Cell count showed >100,000 TNP with 88% segmented neutrophils. Culture was positive for MRSA and Enterococcus. Ortho consulted and following. Status post extensive debridement with retention of hardware 12/18/17. Cultures were positive for MRSA. Treated with 8 weeks of IV Vanc and Rifampin and was transitioned to PO doxycycline January 2018 --> switched to Bactrim per the ortho team. Clinically, the hip did not appear acutely infected. There is obvious wound dehiscence, but no surrounding erythema, warmth, or purulent drainage. The area of dehiscence was very deep and tunnels, so I am concerned that there is tunneling of the wound to the hardware. Status post extensive irrigation and debridement and removal of the femoral component resection total hip arthroplasty 03/12/[address] Carlos. Operative note reviewed. Large hematoma noted. Intra-op cultures negative. Check ESR and CRP. --> pending. Continue Vancomycin IV. Pharmacy to dose. Goal trough ~15. Discussed with the ortho team. It is very likely that the patient will not be able to have the hardware put back in. Duration of treatment depends on the clinical picture. The patient's most recent cultures are negative, but the patient received 2 days of IV antibiotics prior to surgery and was on oral antibiotics prior to that. Given the circumstance, we will likely need to treat for an additional 4 weeks of IV antibiotics and then consider switching her to orals at that point. Monitor renal function and for drug toxicity and dose-adjust antibiotics. sales representative facility services to assist with discharge planning. Recommend VAT consult for PICC placement prior to discharge. Will need weekly CBC, BUN, Cr, ESR, CRP, and Vanc trough. Will need weekly IV care per protocol. Follow up with ID 04/02/18 at 0920. Qualifiers: Encounter type: subsequent encounter Qualified Code(s): T84.51XD - Infection and inflammatory reaction due to internal right hip prosthesis, subsequent encounter (3) Hyponatremia Current Visit: Yes Status: Acute Etiology unclear. Further workup and management per the primary team. (4) Anemia Current Visit: Yes Status: Chronic Hgb stable at around 9. Dressing C/D/I. Continue to trend. Transfusion parameters per the primary team. 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 Carlos. (9) Hypertension Current Visit: Yes Status: Chronic Qualifiers: Hypertension type: essential hypertension Qualified Code(s): I10 - Essential (primary) hypertension (10) Status post-operative repair of closed fracture of right hip Current Visit: No Status: Acute Status post ORIF right femur revision 12/10/[address] Carlos. Intra-op cultures negative. (11) Hip dislocation, right Current Visit: Yes Status: Acute Etiology unclear, but has been known since January 13. Previously, surgery/reduction deferred per ortho due to patient too high risk. X-ray showed known dislocation. Status post removal of hardware 03/12/18. Qualifiers: Encounter type: subsequent encounter Qualified Code(s): S73.004D - Unspecified dislocation of right hip, subsequent encounter (12) Hypothyroidism Current Visit: Yes Status: Chronic TSH elevated at 25. Management per the primary team. Qualifiers: Hypothyroidism type: acquired Qualified Code(s): E03.9 - Hypothyroidism, unspecified (13) Constipation Current Visit: Yes Status: Acute Etiology unclear. Patient has not had a BM in over a week. Bowel regimen per the primary team. Qualifiers: Constipation type: unspecified constipation type Qualified Code(s): K59.00 - Constipation, unspecified - Subjective Interval history: Patient seen and examined. No acute events noted overnight. Patient states she slept well overnight and is feeling okay. Denies fevers, chills, or rigors. Denies chest pain, shortness of breath, or cough. Denies nausea, vomiting, or diarrhea. Denies abdominal pain, urinary complaints, or appetite changes. States she hasn't eaten breakfast yet this morning. Denies pain in the hip at this time. Denies oral thrush or new skin lesions. Reports last BM was last week. Infect Dis PN-Objective Data - Labs CBC & Chem 7: 03/17/18 06:34 03/17/18 06:34 Labs: Laboratory Results - last 24 hr 03/16/18 03/16/18 03/16/18 11:52 16:55 20:18 WBC RBC Hgb Hct MCV MCH MCHC RDW Plt Count MPV Sodium Potassium Chloride Carbon Dioxide BUN Creatinine Est GFR ( Amer) Est GFR (Non-Af Amer) BUN/Creatinine Ratio Glucose POC Glucose 175 H 143 H 184 H Calculated Osmolality Calcium Magnesium 03/17/18 03/17/18 03/17/18 06:34 06:34 07:09 WBC 8.7 RBC 2.85 L Hgb 8.7 L Hct 26.3 L MCV 92.3 MCH 30.5 MCHC 33.1 RDW 18.9 H Plt Count 260 MPV 9.4 Sodium 128 L Potassium 4.2 Chloride 99 Carbon Dioxide 26 BUN 12 Creatinine 0.58 L Est GFR ( Amer) > 60 Est GFR (Non-Af Amer) > 60 BUN/Creatinine Ratio 21 Glucose 124 H POC Glucose 127 H Calculated Osmolality 267 L Calcium 8.7 Magnesium 1.8 Cultures: Cultures 03/10/18 17:43 Blood Culture - Final Peripheral Venipuncture No growth. Final report. 03/10/18 17:43 Blood Culture - Final Peripheral Venipuncture No growth. Final report. 03/12/18 17:24 Anaerobic Culture - Preliminary Right Hip At this time, no anaerobic growth is present. The culture will be finalized after 5 days of incubation. 03/12/18 17:24 Wound Culture - Final Right Hip No growth. Serology 03/12/18 Range/Units 04:59 Urine Osmolality 208 L (300-1090) mOsm/kg Exam - Constitutional Vitals: Temp Pulse Resp BP Pulse Ox 98.6 F 83 14 119/50 95 03/17/18 07:07 03/17/18 07:07 03/17/18 07:07 03/17/18 07:07 03/17/18 07:07 General appearance: average body habitus, cooperative, no acute distress - Head Head exam: Present: atraumatic, normal inspection, normocephalic - Eye Eye exam: Present: EOMI, normal appearance, PERRL Pupils: Present: normal accommodation - ENT ENT exam: Present: mucous membranes moist Additional comments: Poor dentition noted. - Neck Neck exam: Present: normal inspection - Respiratory Respiratory exam: Present: CTAB. Absent: rales, respiratory distress, rhonchi, wheezes - Cardiovascular Cardiovascular exam: Present: irregular rhythm, +S1, +S2. Absent: tachycardia - GI/Abdominal GI/Abdominal exam: Present: normal bowel sounds, soft. Absent: distended, tenderness Additional comments: Dai catheter noted to be draining clear yellow urine. - Extremities Exam Extremities exam: Present: pedal edema (1+ RLE). Absent: joint swelling, tenderness Additional comments: Right hip dressing C/D/I. - Neurological Exam Neurological exam: Present: alert, oriented X3, no focal deficits - Psychiatric Psychiatric exam: Present: normal affect, normal mood - Skin Skin exam: Present: dry, intact, normal color, warm - VTE Documentation of Mechanical Device: Venous foot pump, device Consult Discharge Plan - Plan Referrals: Rosemary Suarez MD [Primary Care Provider] - Prescriptions: Vancomycin HCl 1 gm IV Q12H #4 vial - Attending Attestation I examined this patient and my medical decision-making was reviewed with the Resident Physician. I agree with the documented findings, disposition and treatment plan as described except to the extent set forth below.
[2018-03-17] MEDS ORDERED: Lidocaine -MPF 1% 5 ML AMPUL INFILT ONE (10:16)
[2018-03-17] MEDS: *HR* OxyCODONE Immed Rel 5 MG TABLET PO PRN ×2 (11:23→21:19)
[2018-03-17 14:04] LABS: C-Reactive Protein 32 mg/L (Less than 10)
--- NOTE | 2018-03-17 15:05 | Internal Med Progress Note ---
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 She was admitted 03/11 and being managed for infected R hip hardware. On 03/12 she underwent right Hip surgery for complete debridement , irrigation and prosthesis removal. Patient is status post: 12/18/17 Extensive irrigation and debridement infected right hip Dr. Carlos 12/10/17-Right femur open reduction internal fixation Revision femur of right hip hemiarthroplasty Dr. 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 Jaeger for painful hardware 01/28/17 -s/p right subscapular valgus impacted femoral neck fractureIn situ percutaneous screw fixation of right femur on Dr. Jaeger for right subcapital valgus impacted femoral neck fracture During the last admission in 11/2017, she had MRSA bacteremia and synovial fluid grew enterococcus and MRSA She was discharged to SNF 12/24/2017 with IV antibiotics( Vancomycin and rifampicin) for 8 weeks and switched to oral doxycycline She is stable today .She has no new complains, pain is controlled, today is POD #5 s/p Extensive irrigation debridement and removal of femoral component resection arthroplasty right hip 03/12/18 ,Wound and blood cultures are prelim negative waiting for final report. His vitals Today : : 119/50, 98.6F, 95% , Labs : Na+ 128, K 4.2, BUN 12, creatinine 0.58, glucose 184 - Exam Vitals: Temp Pulse Resp BP Pulse Ox 98.7 F 90 18 124/74 96 03/17/18 10:43 03/17/18 10:43 03/17/18 10:43 03/17/18 10:43 03/17/18 10:43 Exam: General: Alert and oriented. Pleasant. oriented to time place and person , not in acute distress Skin: Normal color, no rash, no lesions EENT: Mucus membranes moist. No lesion. Cardiovascular: Normal S1 & S2, no rubs, murmurs or gallops. No JVD. Pulse regular. Lungs: Normal breath sounds, no wheezes or crackles. Abdomen: Soft, non-tender, no rigidity., no organomegaly , BS + Extremities: Dressing intact. No edema, no calf swelling Neurological: Normal cognition and motor skills. Pulses: Carotid and radial pulses normal +2. - Assessment and Plan (1) Infection of right prosthetic hip joint Current Visit: Yes Status: Acute Assessment and Plan: Post op day 5th s/p Extensive irrigation debridement and removal of femoral component resection arthroplasty right hip 03/12/18 Apparently presence of hematoma intra-op Intra-op cultures sent , no growth, final report awaited On eliquis , continue same Review by infectious disease noted, PICC to be placed tomorrow. Continue vancomycin IV, goal trough 15, renal function is stable Will monitor renal function and (2) Anemia Current Visit: Yes Status: Chronic Assessment and Plan: Hemoglobin is low but stable. No active blood loss Will monitor closely Hb 8.7 Hct 26.3 She is on oral iron therapy . (3) History of MRSA infection Current Visit: Yes Status: Chronic Assessment and Plan: Patient with history of MRSA bacteremia and MRSA septic arthritis as well as enterococcus septic arthritis. [facility]. 2 sets of blood cultures from 03/10 ( this visit) prelim negative Continue IV vancomycin antibiotics planned to continue for 2 weeks before switching to oral. Infectious disease recommendations appreciated PICC to be placed today (4) Hyponatremia Current Visit: Yes Status: Acute Assessment and Plan: She has low Na+ Latest report 128 She is on mild fluid restriction We will monitor closely (5) Hypertension Current Visit: Yes Status: Chronic (6) DVT prophylaxis Current Visit: Yes Status: Acute Assessment and Plan: Continue eliquis, monitor HB (7) History of atrial fibrillation Current Visit: Yes Status: Chronic Assessment and Plan: No acute issues at this visit No any new features during this visit (8) Dementia Current Visit: Yes Status: Chronic (9) Hyponatremia Current Visit: No Status: Chronic (10) Hypothyroidism Current Visit: Yes Status: Chronic - Time Spent with Patient Total time spent is greater than 50% in coordination of care (as documented) at patient's floor/unit and/or counseling patient: Internal Medicine: Result - Labs CBC & Chem 7: 03/17/18 06:34 03/17/18 06:34 Labs: Short CBC 03/17/18 Range/Units 06:34 WBC 8.7 (4.3-11.1) K/mcL Hgb 8.7 L (11.5-15.4) g/dL Hct 26.3 L (35.3-44.9) % Plt Count 260 (140-400) K/mcL BMP 03/17/18 06:34 Sodium 128 L Potassium 4.2 Chloride 99 Carbon Dioxide 26 BUN 12 Creatinine 0.58 L Glucose 124 H Calcium 8.7 - VTE Documentation of Mechanical Device: Venous foot pump, device Consult Discharge Plan - Plan Referrals: Rosemary Suarez MD [Primary Care Provider] - Prescriptions: Vancomycin HCl 1 gm IV Q12H #4 vial <Shashank Lucero - Last Filed: 03/18/18 23:20> Hospitalist Progress Note - Encounter Date of Encounter: 03/17/18 - Exam Vitals: Temp Pulse Resp BP Pulse Ox 97.7 F 75 16 163/64 95 03/18/18 18:40 03/18/18 18:40 03/18/18 18:40 03/18/18 18:40 03/18/18 18:40 - Assessment and Plan (1) Infection of right prosthetic hip joint Current Visit: Yes Status: Acute (2) Anemia Current Visit: Yes Status: Chronic (3) Hyponatremia Current Visit: Yes Status: Acute (4) Hypertension Current Visit: Yes Status: Chronic (5) History of atrial fibrillation Current Visit: Yes Status: Chronic (6) Hypothyroidism Current Visit: Yes Status: Chronic (7) Dementia Current Visit: Yes Status: Chronic (8) History of MRSA infection Current Visit: Yes Status: Chronic (9) DVT prophylaxis Current Visit: Yes Status: Acute - Time Spent with Patient Total time spent is greater than 50% in coordination of care (as documented) at patient's floor/unit and/or counseling patient: 25 - 35 minutes Plan of Care Discussed with: patient Internal Medicine: Result - Labs CBC & Chem 7: 03/17/18 06:34 03/17/18 06:34 - Attending Attestation I SAW/EXAMINED AND EVALUATED THE PATIENT WITH THE RESIDENT ON THE DAY OF VISIT. THE CASE WAS DISCUSSED WITH HIM/HER. I AGREE WITH THE FINDINGS/PLAN, DOCUMENTED IN THE RESIDENT'S PROGRESS NOTE. THE DOCUMENT WAS EDITED BY ME TO CORRECT ERRORS AND ADD MISSING DATA. <ReidPo jonesrodney P - Last Filed: 03/17/18 17:11> (1) Infection of right prosthetic hip joint Qualifiers: Encounter type: subsequent encounter Qualified Code(s): T84.51XD - Infection and inflammatory reaction due to internal right hip prosthesis, subsequent encounter (2) Anemia Qualifiers: Anemia type: other cause Other causes of anemia: chronic disease, other Qualified Code(s): D63.8 - Anemia in other chronic diseases classified elsewhere (5) Hypertension Qualifiers: Hypertension type: essential hypertension Qualified Code(s): I10 - Essential (primary) hypertension (8) Dementia Qualifiers: Dementia type: Alzheimer's disease Alzheimer's disease onset: late-onset Dementia behavioral disturbance: without behavioral disturbance Qualified Code( s): G30.1 - Alzheimer's disease with late onset; F02.80 - Dementia in other diseases classified elsewhere without behavioral disturbance (10) Hypothyroidism Qualifiers: Hypothyroidism type: acquired Qualified Code(s): E03.9 - Hypothyroidism, unspecified <Shashank Lucero M - Last Filed: 03/18/18 23:20> (1) Infection of right prosthetic hip joint Qualifiers: Encounter type: subsequent encounter Qualified Code(s): T84.51XD - Infection and inflammatory reaction due to internal right hip prosthesis, subsequent encounter (2) Anemia Qualifiers: Anemia type: other cause Other causes of anemia: chronic disease, other Qualified Code(s): D63.8 - Anemia in other chronic diseases classified elsewhere (4) Hypertension Qualifiers: Hypertension type: essential hypertension Qualified Code(s): I10 - Essential (primary) hypertension (6) Hypothyroidism Qualifiers: Hypothyroidism type: acquired Qualified Code(s): E03.9 - Hypothyroidism, unspecified (7) Dementia Qualifiers: Dementia type: Alzheimer's disease Alzheimer's disease onset: late-onset Dementia behavioral disturbance: without behavioral disturbance Qualified Code( s): G30.1 - Alzheimer's disease with late onset; F02.80 - Dementia in other diseases classified elsewhere without behavioral disturbance
[2018-03-17] MEDS: Nystatin POWDER 30 GM BOTTLE TP SCH (21:08)
--- NOTE | 2018-03-18 06:47 | Orthopedics Progress Note ---
Date of Encounter: 03/18/18 Time of Encounter: 06:46 Subjective Interval history: Patient was seen this morning doing well without complaints. Afebrile vital signs stable. Operative extremity: Neurovascularly intact Dressing clean dry and intact Calves nontender Assessment and plan: Continue with postoperative care awaiting placement Objective Vital signs: Vital Signs Temp Pulse Resp BP Pulse Ox 03/18/18 06:27 98.1 F 75 16 145/73 96 03/17/18 23:10 98.7 F 78 16 130/65 97 03/17/18 21:42 98.0 F 75 16 118/65 100 03/17/18 15:36 98.3 F 88 18 118/63 94 03/17/18 10:43 98.7 F 90 18 124/74 96 03/17/18 07:07 98.6 F 83 14 119/50 95 Intake and Output 03/17/18 03/17/18 03/18/18 15:59 23:59 07:59 Intake Total 250 / 250 460 / 460 Output Total 550 / 550 400 / 400 Balance -300 / -300 60 / 60 Intake: IV Fluids 250 / 250 Vancocin 1,250 MG In 0.9 % 250 / 250 Sodium Chloride 250 ML @ 166.67 mls/hr IVPB Q24H ELIDA Rx#: [id number] Oral 460 / 460 Output: Catheter 550 / 550 400 / 400 Other: Meal Dinner Percent of Meal Consumed 15% # Urine Diapers 1 Blood Glucose* 147 164 - Labs CBC & BMP: 03/17/18 06:34 03/17/18 06:34 Labs: Abnormal lab results RBC 2.85 M/mcL (3.82-4.97) L 03/17/18 06:34 Hgb 8.7 g/dL (11.5-15.4) L 03/17/18 06:34 Hct 26.3 % (35.3-44.9) L 03/17/18 06:34 RDW 18.9 % (11.5-14.5) H 03/17/18 06:34 ESR 99 mm/hr (0-15) H 03/17/18 06:34 Sodium 128 mEq/L (136-145) L 03/17/18 06:34 Creatinine 0.58 mg/dL (0.60-1.20) L 03/17/18 06:34 Glucose 124 mg/dL (70-105) H 03/17/18 06:34 POC Glucose 147 mg/dL (70-99) H 03/17/18 15:02 Calculated Osmolality 267 (280-300) L 03/17/18 06:34 Alkaline Phosphatase 131 Units/L (34-104) H 03/11/18 01:34 C-Reactive Protein 32 mg/L (Less than 10) H 03/17/18 06:34 Albumin 2.9 g/dL (3.5-5.7) L 03/11/18 01:34 Globulin 3.6 g/dL (2.4-3.5) H 03/11/18 01:34 Albumin/Globulin Ratio 0.8 (1.1-2.2) L 03/11/18 01:34 TSH 25.695 mcIU/mL (0.340-5.600) H 03/12/18 04:59 Urine Osmolality 208 mOsm/kg (300-1090) L 03/12/18 04:59 Vancomycin Trough 13 mcg/mL (5-10) H 03/16/18 03:00 - VTE Documentation of Mechanical Device: Venous foot pump, device Consult Discharge Plan - Plan Referrals: Rosemary Suarez MD [Primary Care Provider] - Prescriptions: Vancomycin HCl 1 gm IV Q12H #4 vial
[2018-03-18] MEDS: Perphenazine 8 MG TABLET PO SCH (09:42)
[2018-03-18] MEDS: Ascorbic Acid 500 MG TABLET PO SCH (09:42)
[2018-03-18] MEDS: Cholecalciferol (D-3) 1,000 UNIT TABLET PO SCH (09:42)
[2018-03-18] MEDS: Apixaban 5 MG TABLET PO SCH ×2 (09:42→21:43)
[2018-03-18] MEDS: Lactobacillus 1 EACH CAP.SPRINK PO SCH ×2 (09:42→21:43)
[2018-03-18] MEDS: Metoprolol XL (24 HR) Succ 50 MG TAB.ER.24H PO SCH (09:42)
[2018-03-18] MEDS: *HR* Amiodarone 200 MG TABLET PO SCH (09:43)
--- NOTE | 2018-03-18 09:53 | Internal Med Progress Note ---
<Crystal Guerra P - Last Filed: 03/18/18 18:01> Date of Encounter: 03/18/18 Time of Encounter: 09:40 - Assessment and plan (1) Infection of right prosthetic hip joint Current Visit: Yes Status: Acute Assessment and plan: Post op day 6th s/p Extensive irrigation debridement and removal of femoral component resection arthroplasty right hip 03/12/18 Intra-op cultures : no growth, final report awaited On eliquis as as anticoagulant DVT prophylaxis Review by infectious disease noted, PICC planned . Continue vancomycin IV X 8 day 03/10 , goal trough 15, renal function is stable Will monitor renal function and wound infection. waiting for replacement of Implant from Ortho team . Qualifiers: Encounter type: subsequent encounter Qualified Code(s): T84.51XD - Infection and inflammatory reaction due to internal right hip prosthesis, subsequent encounter (2) Anemia Current Visit: Yes Status: Chronic Assessment and plan: Hemoglobin is low but stable. No active blood loss Will monitor closely Hb 8.7 Hct 26.3 She is on oral iron therapy Ferrous sulphate 325 Po daily Qualifiers: Anemia type: other cause Other causes of anemia: chronic disease, other Qualified Code(s): D63.8 - Anemia in other chronic diseases classified elsewhere (3) History of MRSA infection Current Visit: Yes Status: Chronic Assessment and plan: Patient with history of MRSA bacteremia and MRSA septic arthritis as well as enterococcus septic arthritis. [facility]. 2 sets of blood cultures from 03/10 ( this visit) prelim negative On IV vancomycin antibiotics planned to continue for 2 weeks before switching to oral. Infectious disease recommendations appreciated PICC has been planned. (4) Hyponatremia Current Visit: Yes Status: Acute Assessment and plan: She has low Na+ Latest report 128 She is on mild fluid restriction We will monitor closely (5) Hypertension Current Visit: Yes Status: Chronic Assessment and plan: She is patient of chronic essential HTN Her BP is under control wit Medication latest BP is 145/72 Lisinopril 5 mg OD and metoprolol 50 mg OD and labetolol and hydralazine IV PRN Qualifiers: Hypertension type: essential hypertension Qualified Code(s): I10 - Essential (primary) hypertension (6) DVT prophylaxis Current Visit: Yes Status: Acute (7) History of atrial fibrillation Current Visit: Yes Status: Chronic (8) Dementia Current Visit: Yes Status: Chronic Qualifiers: Dementia type: Alzheimer's disease Alzheimer's disease onset: late-onset Dementia behavioral disturbance: without behavioral disturbance Qualified Code (s): G30.1 - Alzheimer's disease with late onset; F02.80 - Dementia in other diseases classified elsewhere without behavioral disturbance (9) Hypothyroidism Current Visit: Yes Status: Chronic Qualifiers: Hypothyroidism type: acquired Qualified Code(s): E03.9 - Hypothyroidism, unspecified (10) Hyponatremia Current Visit: No Status: Chronic - Subjective Interval history: Today is 8 th day of admission.She is 82 F with previously diagnosed with Afib , Dementia, Hypothyroidism, HTN, and history of MRSA bacteremia as well as infected right prosthetic hip joint (septic arthritis with MRSA and enterococcus). She was admitted in [facility] from hospital clinic service on 03/10 for chief complain of increased discharge from right Hip due to post surgical wound infection, pain and swelling, impaired electrolytes and anaemic/ pale .On 03/12 she underwent right Hip surgery for complete debridement , irrigation and prosthesis/ implant removal. Patient's post surgical status is as follow : 12/18/17 Extensive irrigation and debridement infected right hip Dr. Carlos 12/10/17-Right femur open reduction internal fixation Revision femur of right hip hemiarthroplasty Dr. 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 Jaeger for painful hardware 01/28/17 -s/p right subscapular valgus impacted femoral neck fractureIn situ percutaneous screw fixation of right femur on Dr. Jaeger for right subcapital valgus impacted femoral neck fracture During the last admission in 11/2017, she had MRSA bacteremia and synovial fluid culture showed Enterococcus and MRSA She was discharged to SNF 12/24/2017 with IV antibiotics( Vancomycin and rifampicin) for 8 weeks and switched to oral doxycycline She is stable today ..She has no new complains, pain is controlled, today is POD #6 s/p Extensive irrigation debridement and removal of femoral component resection arthroplasty right hip ,Wound and blood cultures are prelim negative waiting for final report. She is on IV vancomycin 1.2 gram OD X day 8th .Her today's BP 145/72, 73/ minutes , 96%, , 98.5F, 96 % sat , Labs : Na+ 128, K 4.2, BUN 12, creatinine 0.58, glucose 184 , BUn 12, Creatinine 0.58 , GFR >60 , Hb 8.7 , Hct 26.3 - Constitutional Vitals: Temp Pulse Resp BP Pulse Ox 98.1 F 75 16 145/73 96 03/18/18 06:27 03/18/18 06:27 03/18/18 06:27 03/18/18 06:27 03/18/18 06:27 General appearance: Present: cooperative, A&O X 3, answers questions appropriately - Head Head exam: Present: atraumatic, normal inspection, normocephalic - Neck Neck exam general surgery: Present: full ROM, supple - Respiratory Additional comments: Normal chest expansion and air entry, no rales and rhonchi or other added sounds noted - Cardiovascular Additional comments: Normal rate and rhythm, S1S2 no murmur no murmur, - Extremities Exam Additional comments: No calf swelling,no pedal edema Right Hip painful with ROM, wound dressing is in situ. - Neurological Exam Neurological exam: Present: alert, CN II-XII intact, oriented X3, strengths equal and symetr throughout - Psychiatric Psychiatric exam: Present: normal affect, normal mood Internal Medicine: Result - Labs CBC & Chem 7: 03/17/18 06:34 03/17/18 06:34 Labs: BMP 03/17/18 06:34 Sodium 128 L Potassium 4.2 Chloride 99 Carbon Dioxide 26 BUN 12 Creatinine 0.58 L Glucose 124 H Calcium 8.7 - VTE Documentation of Mechanical Device: Venous foot pump, device Consult Discharge Plan - Plan Referrals: Rosemary Suarez MD [Primary Care Provider] - Prescriptions: Vancomycin HCl 1 gm IV Q12H #4 vial <RandalldarrenluisRajeevShashank M - Last Filed: 03/18/18 23:32> Date of Encounter: 03/18/18 - Assessment and plan (1) Infection of right prosthetic hip joint Current Visit: Yes Status: Acute Qualifiers: Encounter type: subsequent encounter Qualified Code(s): T84.51XD - Infection and inflammatory reaction due to internal right hip prosthesis, subsequent encounter (2) Anemia Current Visit: Yes Status: Chronic Qualifiers: Anemia type: other cause Other causes of anemia: chronic disease, other Qualified Code(s): D63.8 - Anemia in other chronic diseases classified elsewhere (3) Hyponatremia Current Visit: Yes Status: Acute (4) Hypertension Current Visit: Yes Status: Chronic Qualifiers: Hypertension type: essential hypertension Qualified Code(s): I10 - Essential (primary) hypertension (5) History of atrial fibrillation Current Visit: Yes Status: Chronic (6) Hypothyroidism Current Visit: Yes Status: Chronic Qualifiers: Hypothyroidism type: acquired Qualified Code(s): E03.9 - Hypothyroidism, unspecified (7) Dementia Current Visit: Yes Status: Chronic Qualifiers: Dementia type: Alzheimer's disease Alzheimer's disease onset: late-onset Dementia behavioral disturbance: without behavioral disturbance Qualified Code (s): G30.1 - Alzheimer's disease with late onset; F02.80 - Dementia in other diseases classified elsewhere without behavioral disturbance (8) History of MRSA infection Current Visit: Yes Status: Chronic (9) DVT prophylaxis Current Visit: Yes Status: Acute - Time Spent With Patient 25 - 35 minutes - Constitutional Vitals: Temp Pulse Resp BP Pulse Ox 97.7 F 75 16 163/64 95 03/18/18 18:40 03/18/18 18:40 03/18/18 18:40 03/18/18 18:40 03/18/18 18:40 Internal Medicine: Result - Labs CBC & Chem 7: 03/17/18 06:34 03/17/18 06:34 - Attending Attestation I SAW/EXAMINED AND EVALUATED THE PATIENT WITH THE RESIDENT ON THE DAY OF VISIT. THE CASE WAS DISCUSSED WITH HIM/HER. I AGREE WITH THE FINDINGS/PLAN, DOCUMENTED IN THE RESIDENT'S PROGRESS NOTE. THE DOCUMENT WAS EDITED BY ME TO CORRECT ERRORS AND ADD MISSING DATA.
[2018-03-18] MEDS: (Phytonadione [Vitamin K] 100 MCG) PO SCH (10:40)
[2018-03-18] MEDS: Nystatin POWDER 30 GM BOTTLE TP SCH ×2 (11:13→21:43)
--- NOTE | 2018-03-18 13:14 | Infectious Disease Progress No ---
Date of Encounter: 03/18/18 Time of Encounter: 13:12 - Assessment and Plan (1) Nonhealing surgical wound Current Visit: Yes Status: Acute Location: Right hip Etiology: likely multifactorial: poor nutritional status + possible underlying infection. Recommend wound care to evaluate for post-op wound management given the patient' s history of delayed wound healing. Nutritional consult may be helpful as well. Qualifiers: Encounter type: initial encounter Qualified Code(s): T81.89XA - Other complications of procedures, not elsewhere classified, initial encounter (2) Infection of right prosthetic hip joint Current Visit: Yes Status: Acute Location: Right hip. Causative organism: MRSA and Enterococcus. Likely secondary to previous surgical procedures. CT of the right hip showed some soft tissue air concerning for post-op changes vs. infectious etiology. Status post CT-guided joint aspiration that yielded 18ml of pus. Cell count showed >100,000 TNP with 88% segmented neutrophils. Culture was positive for MRSA and Enterococcus. Ortho consulted and following. Status post extensive debridement with retention of hardware 12/18/17. Cultures were positive for MRSA. Treated with 8 weeks of IV Vanc and Rifampin and was transitioned to PO doxycycline January 2018 --> switched to Bactrim per the ortho team. Clinically, the hip did not appear acutely infected. There is obvious wound dehiscence, but no surrounding erythema, warmth, or purulent drainage. The area of dehiscence was very deep and tunnels, so I am concerned that there is tunneling of the wound to the hardware. Status post extensive irrigation and debridement and removal of the femoral component resection total hip arthroplasty 03/12/[address] Carlos. Operative note reviewed. Large hematoma noted. Intra-op cultures negative. Check ESR and CRP. --> 99 and 32, respectively. Continue Vancomycin IV. Pharmacy to dose. Goal trough ~15. Discussed with the ortho team. It is very likely that the patient will not be able to have the hardware put back in. Duration of treatment depends on the clinical picture. The patient's most recent cultures are negative, but the patient received 2 days of IV antibiotics prior to surgery and was on oral antibiotics prior to that. Given the circumstance, we will likely need to treat for an additional 4 weeks of IV antibiotics and then consider switching her to orals at that point. Monitor renal function and for drug toxicity and dose-adjust antibiotics. gate services supervisor to assist with discharge planning. Recommend VAT consult for PICC placement prior to discharge. Will need weekly CBC, BUN, Cr, ESR, CRP, and Vanc trough. Will need weekly IV care per protocol. Follow up with ID 04/02/18 at 0920. No further recommendations from the ID team. Will sign off. Please re-consult if needed. Qualifiers: Encounter type: subsequent encounter Qualified Code(s): T84.51XD - Infection and inflammatory reaction due to internal right hip prosthesis, subsequent encounter (3) Hyponatremia Current Visit: Yes Status: Acute Etiology unclear. Further workup and management per the primary team. (4) Anemia Current Visit: Yes Status: Chronic Hgb stable at around 9. Dressing C/D/I. Continue to trend. Transfusion parameters per the primary team. 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 Carlos. (9) Hypertension Current Visit: Yes Status: Chronic Qualifiers: Hypertension type: essential hypertension Qualified Code(s): I10 - Essential (primary) hypertension (10) Status post-operative repair of closed fracture of right hip Current Visit: No Status: Acute Status post ORIF right femur revision 12/10/[address] Carlos. Intra-op cultures negative. (11) Hip dislocation, right Current Visit: Yes Status: Acute Etiology unclear, but has been known since January 13. Previously, surgery/reduction deferred per ortho due to patient too high risk. X-ray showed known dislocation. Status post removal of hardware 03/12/18. Qualifiers: Encounter type: subsequent encounter Qualified Code(s): S73.004D - Unspecified dislocation of right hip, subsequent encounter (12) Hypothyroidism Current Visit: Yes Status: Chronic TSH elevated at 25. Management per the primary team. Qualifiers: Hypothyroidism type: acquired Qualified Code(s): E03.9 - Hypothyroidism, unspecified (13) Constipation Current Visit: Yes Status: Acute Etiology unclear. Patient has not had a BM in over a week. Bowel regimen per the primary team. Qualifiers: Constipation type: unspecified constipation type Qualified Code(s): K59.00 - Constipation, unspecified - Subjective Interval history: Patient seen and examined. No acute events noted overnight. Patient states she is tired and didn't get much sleep last night. Denies fevers, chills, or rigors. Denies chest pain, shortness of breath, or cough. Denies nausea, vomiting, or diarrhea. Denies abdominal pain, urinary complaints, or appetite changes. States she ate breakfast this morning without a problem. Reports right hip pain 02/03 currently. Denies oral thrush or new skin lesions. Reports last BM was last week. Dai discontinued yesterday. Patient incontinent of urine, but denies urinary complaints. Infect Dis PN-Objective Data - Labs CBC & Chem 7: 03/17/18 06:34 03/17/18 06:34 Labs: Laboratory Results - last 24 hr 03/17/18 03/17/18 03/17/18 06:34 15:02 19:54 Sodium 128 L Potassium 4.2 Chloride 99 Carbon Dioxide 26 BUN 12 Creatinine 0.58 L Est GFR ( Amer) > 60 Est GFR (Non-Af Amer) > 60 BUN/Creatinine Ratio 21 Glucose 124 H POC Glucose 147 H 164 H Calculated Osmolality 267 L Calcium 8.7 Magnesium 1.8 C-Reactive Protein 32 H 03/18/18 07:07 Sodium Potassium Chloride Carbon Dioxide BUN Creatinine Est GFR ( Amer) Est GFR (Non-Af Amer) BUN/Creatinine Ratio Glucose POC Glucose 119 H Calculated Osmolality Calcium Magnesium C-Reactive Protein Cultures: Cultures 03/12/18 17:24 Anaerobic Culture - Final Right Hip No anaerobes were recovered. 03/10/18 17:43 Blood Culture - Final Peripheral Venipuncture No growth. Final report. 03/10/18 17:43 Blood Culture - Final Peripheral Venipuncture No growth. Final report. 03/12/18 17:24 Wound Culture - Final Right Hip No growth. Serology 03/12/18 Range/Units 04:59 Urine Osmolality 208 L (300-1090) mOsm/kg Exam - Constitutional Vitals: Temp Pulse Resp BP Pulse Ox 98.1 F 75 16 145/73 96 03/18/18 06:27 03/18/18 06:27 03/18/18 06:27 03/18/18 06:27 03/18/18 10:00 General appearance: average body habitus, cooperative, no acute distress - Head Head exam: Present: atraumatic, normal inspection, normocephalic - Eye Eye exam: Present: EOMI, normal appearance, PERRL Pupils: Present: normal accommodation - ENT ENT exam: Present: mucous membranes moist Additional comments: Poor dentition noted. - Neck Neck exam: Present: normal inspection - Respiratory Respiratory exam: Present: CTAB. Absent: rales, respiratory distress, rhonchi, wheezes - Cardiovascular Cardiovascular exam: Present: irregular rhythm, +S1, +S2. Absent: tachycardia - GI/Abdominal GI/Abdominal exam: Present: normal bowel sounds, soft. Absent: distended, tenderness - Extremities Exam Extremities exam: Absent: joint swelling, pedal edema, tenderness Additional comments: Right hip dressing with small amount of shadow drainage noted. - Neurological Exam Neurological exam: Present: alert, oriented X3, no focal deficits - Psychiatric Psychiatric exam: Present: normal affect, normal mood - Skin Skin exam: Present: dry, intact, normal color, warm - VTE Documentation of Mechanical Device: Venous foot pump, device Consult Discharge Plan - Plan Referrals: Rosemary Suarez MD [Primary Care Provider] - Prescriptions: Vancomycin HCl 1 gm IV Q12H #4 vial - Attending Attestation I examined this patient and my medical decision-making was reviewed with Brittany Fernandez CNP. I agree with the documented findings, disposition and treatment plan as described except to the extent set forth below.
[2018-03-18] MEDS: *HR* HYDROcodone/Acet 5/325 mg TABLET PO PRN (21:44)
--- NOTE | 2018-03-19 08:10 | Orthopedics Progress Note ---
Date of Encounter: 03/19/18 Time of Encounter: 08:10 Subjective Interval history: Patient was seen this morning doing well without complaints. Afebrile vital signs stable. Operative extremity: Neurovascularly intact Dressing clean dry and intact Calves nontender Assessment and plan: Continue with postoperative care awaiting placement Objective Vital signs: Vital Signs Temp Pulse Resp BP Pulse Ox 03/19/18 07:20 98.4 F 71 16 150/70 100 03/18/18 23:24 98 F 73 16 148/54 95 03/18/18 18:40 97.7 F 75 16 163/64 95 03/18/18 17:06 98.5 F 73 16 145/72 99 03/18/18 10:00 96 Intake and Output 03/18/18 03/19/18 03/19/18 23:59 07:59 15:59 Intake Total 250 / 250 Balance 250 / 250 Intake: IV Fluids 250 / 250 Vancocin 1,250 MG In 0.9 % 250 / 250 Sodium Chloride 250 ML @ 166.67 mls/hr IVPB Q24H ELIDA Rx#: [id number] Other: # Urine Diapers 1 Blood Glucose* 115 88 - Labs CBC & BMP: 03/17/18 06:34 03/17/18 06:34 Labs: Abnormal lab results RBC 2.85 M/mcL (3.82-4.97) L 03/17/18 06:34 Hgb 8.7 g/dL (11.5-15.4) L 03/17/18 06:34 Hct 26.3 % (35.3-44.9) L 03/17/18 06:34 RDW 18.9 % (11.5-14.5) H 03/17/18 06:34 ESR 99 mm/hr (0-15) H 03/17/18 06:34 Sodium 128 mEq/L (136-145) L 03/17/18 06:34 Creatinine 0.58 mg/dL (0.60-1.20) L 03/17/18 06:34 Glucose 124 mg/dL (70-105) H 03/17/18 06:34 Calculated Osmolality 267 (280-300) L 03/17/18 06:34 Alkaline Phosphatase 131 Units/L (34-104) H 03/11/18 01:34 C-Reactive Protein 32 mg/L (Less than 10) H 03/17/18 06:34 Albumin 2.9 g/dL (3.5-5.7) L 03/11/18 01:34 Globulin 3.6 g/dL (2.4-3.5) H 03/11/18 01:34 Albumin/Globulin Ratio 0.8 (1.1-2.2) L 03/11/18 01:34 TSH 25.695 mcIU/mL (0.340-5.600) H 03/12/18 04:59 Urine Osmolality 208 mOsm/kg (300-1090) L 03/12/18 04:59 Vancomycin Trough 14 mcg/mL (5-10) H 03/19/18 03:30 - VTE Documentation of Mechanical Device: Intermittent pneumatic compression device Consult Discharge Plan - Plan Referrals: Rosemary Suarez MD [Primary Care Provider] - Prescriptions: Vancomycin HCl 1 gm IV Q12H #4 vial
[2018-03-19] MEDS: (Phytonadione [Vitamin K] 100 MCG) PO SCH (08:54)
[2018-03-19] MEDS: Perphenazine 8 MG TABLET PO SCH (08:54)
[2018-03-19] MEDS: Ascorbic Acid 500 MG TABLET PO SCH (08:54)
[2018-03-19] MEDS: Cholecalciferol (D-3) 1,000 UNIT TABLET PO SCH (08:54)
[2018-03-19] MEDS: Metoprolol XL (24 HR) Succ 50 MG TAB.ER.24H PO SCH (08:54)
[2018-03-19] MEDS: Apixaban 5 MG TABLET PO SCH (08:54)
[2018-03-19] MEDS: *HR* Amiodarone 200 MG TABLET PO SCH (08:54)
[2018-03-19] MEDS: Lactobacillus 1 EACH CAP.SPRINK PO SCH (08:54)
[2018-03-19] MEDS: Nystatin POWDER 30 GM BOTTLE TP SCH (10:13)
--- NOTE | 2018-03-19 15:47 | Discharge Summary ---
<Crystal Guerra P - Last Filed: 03/19/18 16:14> - NOTES TO OUTPATIENT PROVIDER Notes to Outpatient Provider: She will follow up with Physician at [facility] facility Date of Encounter: 03/19/18 Time of Encounter: 02:00 - Discharge Diagnosis (1) Infection of right prosthetic hip joint Priority: Primary Status: Acute Comments: Extensive irrigation debridement and removal of femoral component resection arthroplasty right hip 03/12/18 done in Hospital. Intra-op cultures : no growth, no growth for anaerobic culture as well. On eliquis 5mg BID as as anticoagulant DVT prophylaxis Continue vancomycin IV X 9 th day 03/10 , goal trough 15, renal function is stable. We will continue vancomycin at [facility] facilities. She will be closely monitored her Renal fuction at senior care facilities. Qualifiers: Encounter type: subsequent encounter Qualified Code(s): T84.51XD - Infection and inflammatory reaction due to internal right hip prosthesis, subsequent encounter (2) Anemia Priority: Primary Status: Chronic Comments: Hemoglobin is low but stable. 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 She had IV vancomycin and rifampicin at senior care prior to presentation. 2 sets of blood cultures from 03/10 ( this visit) negative, anaerobic culture negative. She is discharging on IV vancomycin antibiotics, have planned to continue . She will be sent to [facility] facility and will get IV vancomycin. Infectious disease physician consultation done regularly at hospital. (4) Hyponatremia Priority: Secondary Status: Acute Comments: She has low Na+ Latest report 128 She is on mild fluid restriction (5) Hypertension Priority: Secondary Status: Chronic Comments: She is patient of chronic essential HTN Her BP is under control with Medication latest BP is 145/72 She was on Lisinopril 5 mg OD and metoprolol 50 mg OD and labetolol and hydralazine IV PRN Qualifiers: Hypertension type: essential hypertension Qualified Code(s): I10 - Essential (primary) hypertension (6) DVT prophylaxis Priority: Secondary Status: Chronic (7) History of atrial fibrillation Priority: Secondary Status: Chronic (8) Dementia Priority: Secondary Status: Chronic Qualifiers: Dementia type: Alzheimer's disease Alzheimer's disease onset: late-onset Dementia behavioral disturbance: without behavioral disturbance Qualified Code (s): G30.1 - Alzheimer's disease with late onset; F02.80 - Dementia in other diseases classified elsewhere without behavioral disturbance (9) Hypothyroidism Priority: Secondary Status: Chronic Qualifiers: Hypothyroidism type: acquired Qualified Code(s): E03.9 - Hypothyroidism, unspecified Hospital course: Ms. Garcia is a 82 years old female with previously diagnosed with Afib, Dementia, Hypothyroidism, HTN, and history of MRSA bacteremia as well as infected right prosthetic hip joint (septic arthritis with MRSA and enterococcus). She was admitted in [facility] from hospital clinic service on 03/10 for chief complain of increased discharge from right Hip due to post surgical wound infection, pain and swelling, impaired electrolytes and looking anaemic/ pale .On 03/12 she underwent right Hip surgery for complete debridement , irrigation and prosthesis/ implant removal. Patient's post surgical status is as follow : 12/18/17 Extensive irrigation and debridement infected right hip Dr. Carlos 12/10/17-Right femur open reduction internal fixation Revision femur of right hip hemiarthroplasty Dr. 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 Jaeger for painful hardware 01/28/17 -s/p right subscapular valgus impacted femoral neck fractureIn situ percutaneous screw fixation of right femur on Dr. Jaeger for right subcapital valgus impacted femoral neck fracture .During the last admission in 11/2017, she had MRSA bacteremia and synovial fluid culture showed Enterococcus and MRSA.She was discharged to SNF 12/24/2017 with IV antibiotics( Vancomycin and rifampicin) for 8 weeks and then switched to oral doxycycline She has no new complains, pain has been controlled, today is POD#7 s/p Extensive irrigation debridement and removal of femoral component resection arthroplasty right hip ,Wound and blood cultures ,anaerobic culture are negative this time. She is on IV vancomycin 1.2 gram OD X day 9th .Her today's BP 161/74, 86/ minutes , 99% sat in room air , Tem 97.3F, % sat , Labs : Na + 128, K 4.2, glucose 184 , BUN 12, Creatinine 0.58 , GFR >60 , Hb 8.7 , Hct 26.3, TLC 8.7 . She is hemodynamically stable , she is lying in bed comfortably, no fresh complaints. She is waiting for new implant placement by ortho Team.We are discharging her as she will be under supervision of healthcare professional at senior care facilities. - Time Spent with Patient Total time spent providing and/or coordinating discharge services: - Discharge Medications Prescriptions: HYDROcodone/Acet 5/325 mg [[place] 5-325 mg] 1 tab PO Q6H PRN 3 Days #12 tab PRN Reason: Pain Vancomycin HCl 1 gm IV Q12H #4 vial Home Medications: Amiodarone [Cordarone] 200 mg PO DAILY 03/11/18 [History] Apixaban [Eliquis] 5 mg PO BID 03/11/18 [History] Ascorbic Acid [Vitamin C with Winnie Hips] 500 mg PO DAILY 03/11/18 [History] Bisacodyl [Dulcolax] 10 mg RC DAILY PRN 03/11/18 [History] Cholecalciferol (D-3) [Vitamin D] 2,000 unit PO DAILY 03/11/18 [History] Docusate Sodium [Dok] 100 mg PO BID 03/11/18 [History] Ferrous Sulfate [Iron] 325 mg PO DAILY 03/11/18 [History] Imipramine HCl [Tofranil] 50 mg PO BID 03/11/18 [History] Levothyroxine [Synthroid] 50 mcg PO DAILY 03/11/18 [History] Lisinopril [Zestril] 5 mg PO DAILY 03/11/18 [History] Metoprolol Succinate [Toprol Xl] 50 mg PO DAILY 03/11/18 [History] Omeprazole [PriLOSEC] 40 mg PO DAILY 03/11/18 [History] Oxycodone HCl/Acetaminophen [Percocet 5-325 mg Tablet] 1 tab PO Q6H PRN [History] Perphenazine [Trilafon] 8 mg PO DAILY 03/11/18 [History] Phytonadione [Vitamin K] 100 mcg PO DAILY 03/11/18 [History] Polyethylene Glycol 3350 [MiraLAX Powder Bulk 17.9 Oz] 1 scoop PO DAILY [History] Potassium Chloride [K-Tab ER] 20 meq PO DAILY 03/11/18 [History] Vancomycin HCl 1 gm IV Q12H #4 vial 03/16/18 [Rx] HYDROcodone/Acet 5/325 mg [[place] 5-325 mg] 1 tab PO Q6H PRN 3 Days #12 tab 03/19 [Rx] Allergies/Adverse Reactions: 3 Allergy/AdvReac Type Severity Reaction Status Date / Time aspirin AdvReac See Verified 12/09/17 14:01 Comments Penicillins AdvReac See Verified 12/09/17 14:01 Comments Date of admission: 03/10/18 16:37 Primary care physician: Rosemary Suarez MD Consults: 03/10/18 20:02 Consult to Nutrition [CONS] Routine Comment: Consulting Provider: NUTRITION Reason for Dietary Consult: MST Score 03/10/18 23:20 Consult to Orthopedic Surgery [CONS] Routine Consulting Provider: [facility] Reason for Consult: Surgical intervention for hip infection Call Completed: No 03/11/18 08:30 Consult to Infectious Diseases [CONS] Routine Consulting Provider: Infectious Disease [facility] Reason for Consult: Multiple surgcial procedures, infected R hip prosthesis, pls evaluate, thank you. Call Completed: No 03/16/18 14:49 Consult to Occupational Therapy [CONS] Stat Comment: Evaluate, develop and implement POC Reason for Consult: eval and treat - BED TO CHAIR ONLY. No knee motion - keep knee immobilizer in place. Does patient have active BEDREST order?: No Is patient medically & hemodynamically stable?: Yes Patient assessed for mobility or mobilized this visit?: No Consult to Physical Therapy [CONS] Stat Comment: Evaluate, develop and implement POC Reason for Consult: eval and treat - BED TO CHAIR ONLY. No knee motion - keep knee immobilizer in place. 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 Med/Antibiotic Call Completed: No 03/17/18 10:16 Consult to Invasive Line Access Team [CONS] Routine Reason for Consult: Picc Line Insertion Line Type: PICC - Constitutional Vitals: Temp Pulse Resp BP Pulse Ox 97.3 F L 86 20 161/74 99 03/19/18 11:58 03/19/18 11:58 03/19/18 11:58 03/19/18 11:58 03/19/18 11:58 General appearance: Present: cooperative, A&O X 3, no acute distress, answers questions appropriately - Head Head exam: Present: atraumatic, normal inspection, normocephalic - Neck Neck exam general surgery: Present: full ROM, normal inspection, supple - Respiratory Additional comments: Normal chest expansion,normal air entry both side, no rales and murmur - Cardiovascular Additional comments: Normal rate and rhythm , S1S2 normal , no rub or any added sound . - GI/Abdominal Additional comments: Soft , warm , no organomegaly, no rigidity and guarding , BS+ - Extremities Exam Additional comments: No calf swelling,no pedal edema Right Hip painful with ROM, wound dressing is in situ. - Neurological Exam Neurological exam: Present: alert, oriented X3, reflexes normal - Psychiatric Psychiatric exam: Present: normal affect - Patient Status Disposition: Transfer SNF Condition: Fair Overall status at discharge: patient is not back to baseline (She will be sent to [facility] facilities only after everything is arranged and managed) - Discharge Instructions Follow Up With: Thuy Rivera PAC [Physician Clinical Application Manager] - 03/20/18 9:45 am Brittany Fernandez DRINK WAITER [Advanced Practice Nurse] - 03/24/18 9:00 am Rosemary Suarez MD [Primary Care Provider] - - VTE Documentation of Mechanical Device: Intermittent pneumatic compression device <Dyllan Kimble - Last Filed: 03/19/18 17:40> Date of Encounter: 03/19/18 - Discharge Diagnosis (1) History of MRSA infection Status: Chronic (2) DVT prophylaxis Status: Chronic (3) Infection of right prosthetic hip joint Status: Acute Qualifiers: Encounter type: subsequent encounter Qualified Code(s): T84.51XD - Infection and inflammatory reaction due to internal right hip prosthesis, subsequent encounter (4) Anemia Status: Chronic Qualifiers: Anemia type: other cause Other causes of anemia: chronic disease, other Qualified Code(s): D63.8 - Anemia in other chronic diseases classified elsewhere (5) Dementia Status: Chronic Qualifiers: Dementia type: Alzheimer's disease Alzheimer's disease onset: late-onset Dementia behavioral disturbance: without behavioral disturbance Qualified Code (s): G30.1 - Alzheimer's disease with late onset; F02.80 - Dementia in other diseases classified elsewhere without behavioral disturbance (6) History of atrial fibrillation Status: Chronic (7) Hypertension Status: Chronic Qualifiers: Hypertension type: essential hypertension Qualified Code(s): I10 - Essential (primary) hypertension (8) Hyponatremia Status: Acute (9) Hypothyroidism Status: Chronic Qualifiers: Hypothyroidism type: acquired Qualified Code(s): E03.9 - Hypothyroidism, unspecified Hospital course: Ms. Garcia is a 82 year old female Discharge discussed with: patient, nurse, social work, information systems consultant - Time Spent with Patient Total time spent providing and/or coordinating discharge services: Less than 30 minutes Date of admission: 03/10/18 16:37 Primary care physician: Rosemary Suarez MD Consults: 03/10/18 20:02 Consult to Nutrition [CONS] Routine Comment: Consulting Provider: NUTRITION Reason for Dietary Consult: MST Score 03/10/18 23:20 Consult to Orthopedic Surgery [CONS] Routine Consulting Provider: [facility] Reason for Consult: Surgical intervention for hip infection Call Completed: No 03/11/18 08:30 Consult to Infectious Diseases [CONS] Routine Consulting Provider: Infectious Disease [facility] Reason for Consult: Multiple surgcial procedures, infected R hip prosthesis, pls evaluate, thank you. Call Completed: No 03/16/18 14:49 Consult to Occupational Therapy [CONS] Stat Comment: Evaluate, develop and implement POC Reason for Consult: eval and treat - BED TO CHAIR ONLY. No knee motion - keep knee immobilizer in place. Does patient have active BEDREST order?: No Is patient medically & hemodynamically stable?: Yes Patient assessed for mobility or mobilized this visit?: No Consult to Physical Therapy [CONS] Stat Comment: Evaluate, develop and implement POC Reason for Consult: eval and treat - BED TO CHAIR ONLY. No knee motion - keep knee immobilizer in place. 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 line indications: [facility] Med/Antibiotic Call Completed: No 03/17/18 10:16 Consult to Invasive Line Access Team [CONS] Routine Reason for Consult: Picc Line Insertion Line Type: PICC - Constitutional Vitals: Temp Pulse Resp BP Pulse Ox 98.3 F 76 20 137/71 98 03/19/18 15:47 03/19/18 15:47 03/19/18 15:47 03/19/18 15:47 03/19/18 15:47 - Attending Attestation I have personally seen and examined this patient on 03/19/18 and reviewed her chart and labs, including medications, I have discussed plan of care with the resident physician, whose documentation reflect our plan of care. With the additions/exceptions set forth below. Patient is clinically stable to be transferred to SNF, she needs 4 more weeks of IV antibiotics. Follow up with Infectious disease team on 04/02/18 Monitor vanco trough routinely, goal trough is 15 Monitor Chem, CBC, ESR, CRP, vanco, IV care per protocol. Rest of details is as in the resident physician's documentation
[2018-03-19 15:48] VITALS: BP 137/71
[2018-03-19] MEDS: *HR* HYDROcodone/Acet 5/325 mg TABLET PO PRN (19:05)
[2018-03-19] MEDS ORDERED: Aminoglycoside Consult 1 EACH MC ONE (19:43)
== END 2018-03-19 19:44 | DRG 463 ==
LOC: SUATTDRO 16:37 → 3NENU 16:37
PROVIDERS: ADMIT Internal Medicine; ATTEND Internal Medicine